=== PATIENT | female | born 1940 | race Caucasian/White ===

== ENCOUNTER 2018-05-09 13:38 | Emergency (ER) | payer OTHER, MEDICARE ==
[~2018-05-09] VITALS: Ht 170.2 cm; Wt 67.1 kg
[~2018-05-09 13:38] MED LIST: AMIO200T3 PO; ASPI-1155 PO; ESTR0.623 PO; FIORICET PO; LEVO100T PO; LORA-259 PO; NOR10 PO; VALS320T2 PO; VERA180T7 PO
[2018-05-09 13:47] VITALS: BP_SYST 156
[2018-05-09 14:59] LABS: BASOPHILS # (AUTO) 0.1 K/uL (0.0-0.2); BASOPHILS % (AUTO) 0.6 % (0.0-2.0); EOSINOPHILS # (AUTO) 0.1 K/uL (0.0-0.4); EOSINOPHILS % (AUTO) 0.8 % (0.0-4.0); HEMATOCRIT 37.9 % (36-48); HEMOGLOBIN 11.9 g/dL (12.0-16.0); LYMPHOCYTES # (AUTO) 1.3 K/uL (1.0-5.5); LYMPHOCYTES % (AUTO) 14.2 % (20.5-51.5); MEAN CORPUSCULAR HEMOGLOBIN 25 pg (27-31); MEAN CORPUSCULAR HGB CONC 31 % (32-36); MEAN CORPUSCULAR VOLUME 80 fL (79.0-98.0); MONOCYTES # (AUTO) 0.3 K/uL (0.0-1.0); MONOCYTES % (AUTO) 3.1 % (1.7-9.3); NEUTROPHILS # (AUTO) 7.3 K/uL (1.8-7.7); NEUTROPHILS % (AUTO) 81.3 % (40.0-70.0); PLATELET COUNT (AUTO) 369 K/uL (130-430); RED BLOOD CELL COUNT(AUTO) 4.74 MIL/uL (4.2-6.2); WHITE BLOOD COUNT (AUTO) 9.1 K/uL (4.8-10.8)
[2018-05-09 15:12] LABS: ANION GAP 10 (5-15); CALCIUM 9.2 mg/dL (8.4-11.0); CHLORIDE 89 mmol/L (98-107); CREATININE 0.72 mg/dL (0.55-1.30); GLUCOSE 104 mg/dL (70-99); POTASSIUM 4.6 mmol/L (3.5-5.1); SODIUM SERUM 124 mmol/L (136-145); UREA NITROGEN, BLOOD 11 mg/dL (8-21)
[2018-05-09 15:17] LABS: ALANINE AMINOTRANSFERASE 26 U/L (12-78); ALBUMIN 3.8 g/dL (3.4-4.8); ASPARTATE AMINOTRANSFERASE 15 U/L (10-37); TOTAL BILIRUBIN 0.2 mg/dL (0.0-1.0)
[2018-05-09 16:00] VITALS: BP_SYST 152
== END 2018-05-09 16:00 | disposition home or self-care (01) ==
LOC: SED 13:38
DX: R79.89 Other specified abnormal findings of blood chemistry (principal); E87.6 Hypokalemia; I10 Essential (primary) hypertension; K21.9 Gastro-esophageal reflux disease without esophagitis; I48.91 Unspecified atrial fibrillation; Z90.710 Acquired absence of both cervix and uterus; Z79.899 Other long term (current) drug therapy
CPT/HCPCS: 36415; 80053; 83735-TC; 85025; 93005; 99285

== ENCOUNTER 2018-12-31 19:32 | Outpatient (CLI) | payer OTHER, MEDICARE ==
[~2018-12-31 19:32] MED LIST changes: +AMI200 PO; -AMIO200T3 PO
[2018-12-31 20:21] LABS: ALANINE AMINOTRANSFERASE 25 U/L (12-78); ALBUMIN 3.6 g/dL (3.4-4.8); ANION GAP 11 (5-15); ASPARTATE AMINOTRANSFERASE 15 U/L (10-37); CALCIUM 9.3 mg/dL (8.4-11.0); GLUCOSE 120 mg/dL (70-99); POTASSIUM 4.8 mmol/L (3.5-5.1); SODIUM SERUM 120 mmol/L (136-145); TOTAL BILIRUBIN 0.2 mg/dL (0.0-1.0); UREA NITROGEN, BLOOD 15 mg/dL (8-21)
[2018-12-31 21:45] LABS: CHLORIDE 84 mmol/L (98-107)
== END 2018-12-31 20:42 | disposition home or self-care (01) ==
LOC: SLB 19:32
PROVIDERS: ATTEND Internal Medicine Cardiovascular Disease
DX: M15.0 Primary generalized (osteo)arthritis (principal); I48.0 Paroxysmal atrial fibrillation; M32.10 Systemic lupus erythematosus, organ or system involvement unspecified; E03.9 Hypothyroidism, unspecified; D50.8 Other iron deficiency anemias; E87.5 Hyperkalemia; I10 Essential (primary) hypertension; Z79.899 Other long term (current) drug therapy
CPT/HCPCS: 36415; 80053

== ENCOUNTER 2019-03-27 10:55 | Outpatient (CLI) | payer OTHER, MEDICARE ==
[2019-03-27 11:58] LABS: BASOPHILS # (AUTO) 0.1 K/uL (0.0-0.2); BASOPHILS % (AUTO) 1.3 % (0.0-2.0); EOSINOPHILS # (AUTO) 0.4 K/uL (0.0-0.4); EOSINOPHILS % (AUTO) 6.4 % (0.0-4.0); HEMATOCRIT 36.4 % (36-48); HEMOGLOBIN 11.9 g/dL (12.0-16.0); LYMPHOCYTES # (AUTO) 2.1 K/uL (1.0-5.5); MEAN CORPUSCULAR HEMOGLOBIN 26 pg (27-31); MEAN CORPUSCULAR HGB CONC 33 % (32-36); MEAN CORPUSCULAR VOLUME 81 fL (79.0-98.0); MONOCYTES # (AUTO) 0.5 K/uL (0.0-1.0); MONOCYTES % (AUTO) 7.9 % (1.7-9.3); NEUTROPHILS # (AUTO) 3.5 K/uL (1.8-7.7); NEUTROPHILS % (AUTO) 52.4 % (40.0-70.0); PLATELET COUNT (AUTO) 361 K/uL (130-430); RED BLOOD CELL COUNT(AUTO) 4.52 MIL/uL (4.2-6.2); RED CELL DISTRIBUTION WIDTH 16.3 % (9.0-15.0); WHITE BLOOD COUNT (AUTO) 6.7 K/uL (4.8-10.8)
[2019-03-27 12:39] LABS: ALANINE AMINOTRANSFERASE 20 U/L (12-78); ALBUMIN 3.3 g/dL (3.4-4.8); ANION GAP 5 (5-15); ASPARTATE AMINOTRANSFERASE 14 U/L (10-37); CALCIUM 8.9 mg/dL (8.4-11.0); CHLORIDE 94 mmol/L (98-107); CREATININE 0.74 mg/dL (0.55-1.30); GLUCOSE 90 mg/dL (70-99); POTASSIUM 4.9 mmol/L (3.5-5.1); SODIUM SERUM 129 mmol/L (136-145); THYROID STIMULATING HORMONE 3.85 uIu/mL (0.36-3.74); TOTAL BILIRUBIN 0.2 mg/dL (0.0-1.0); UREA NITROGEN, BLOOD 11 mg/dL (8-21)
[2019-03-27 13:47] LABS: CHOLESTEROL 238 mg/dL (<200); HDL CHOLESTEROL 111 mg/dL (>55); LDL CHOLESTEROL 104 mg/dL (<100); TRIGLYCERIDES 41 mg/dL (30-150)
== END 2019-03-27 14:48 | disposition home or self-care (01) ==
LOC: SLB 10:55
PROVIDERS: ATTEND Internal Medicine Cardiovascular Disease
DX: I11.0 Hypertensive heart disease with heart failure (principal); I50.9 Heart failure, unspecified; E78.5 Hyperlipidemia, unspecified
CPT/HCPCS: 36415; 80053; 80061; 83735-TC; 84443-TC; 85025

== ENCOUNTER 2020-04-08 10:20 | Outpatient (CLI) | payer OTHER, MEDICARE ==
[~2020-04-08 10:20] MED LIST changes: +VERA180T11 PO; -VERA180T7 PO
[2020-04-08 11:10] LABS: BASOPHILS # (AUTO) 0.1 K/uL (0.0-0.2); BASOPHILS % (AUTO) 1.1 % (0.0-2.0); EOSINOPHILS # (AUTO) 0.8 K/uL (0.0-0.4); EOSINOPHILS % (AUTO) 9.1 % (0.0-4.0); HEMATOCRIT 36.6 % (36-48); HEMOGLOBIN 12.1 g/dL (12.0-16.0); LYMPHOCYTES # (AUTO) 2.5 K/uL (1.0-5.5); LYMPHOCYTES % (AUTO) 28.3 % (20.5-51.5); MEAN CORPUSCULAR HEMOGLOBIN 26 pg (27-31); MEAN CORPUSCULAR HGB CONC 33 % (32-36); MEAN CORPUSCULAR VOLUME 79 fL (79.0-98.0); MONOCYTES # (AUTO) 0.6 K/uL (0.0-1.0); MONOCYTES % (AUTO) 7.3 % (1.7-9.3); NEUTROPHILS # (AUTO) 4.7 K/uL (1.8-7.7); NEUTROPHILS % (AUTO) 54.2 % (40.0-70.0); PLATELET COUNT (AUTO) 393 K/uL (130-430); RED BLOOD CELL COUNT(AUTO) 4.63 MIL/uL (4.2-6.2); RED CELL DISTRIBUTION WIDTH 15.4 % (9.0-15.0); WHITE BLOOD COUNT (AUTO) 8.8 K/uL (4.8-10.8)
[2020-04-08 11:41] LABS: ALANINE AMINOTRANSFERASE 27 U/L (12-78); ALBUMIN 3.4 g/dL (3.4-4.8); ANION GAP 3 (5-15); ASPARTATE AMINOTRANSFERASE 15 U/L (10-37); CHLORIDE 88 mmol/L (98-107); CHOLESTEROL 202 mg/dL (<200); CREATININE 0.93 mg/dL (0.55-1.30); GLUCOSE 98 mg/dL (70-99); HDL CHOLESTEROL 107 mg/dL (>55); LDL CHOLESTEROL 83 mg/dL (<100); POTASSIUM 4.9 mmol/L (3.5-5.1); SODIUM SERUM 122 mmol/L (136-145); THYROID STIMULATING HORMONE 3.52 uIu/mL (0.34-4.82); TOTAL BILIRUBIN 0.2 mg/dL (0.0-1.0); TRIGLYCERIDES 54 mg/dL (30-150); UREA NITROGEN, BLOOD 12 mg/dL (8-21)
[2020-04-09 08:12] LABS: T4 (THYROXINE) 10.5 ug/dL (4.5-12.0)
== END 2020-04-08 20:05 | disposition home or self-care (01) ==
LOC: SLB 10:20
PROVIDERS: ATTEND Internal Medicine Cardiovascular Disease
DX: I48.0 Paroxysmal atrial fibrillation (principal); I34.0 Nonrheumatic mitral (valve) insufficiency; I10 Essential (primary) hypertension; E78.5 Hyperlipidemia, unspecified
CPT/HCPCS: 36415; 80053; 80061; 84436; 84443-TC; 84480; 85025

== ENCOUNTER 2022-03-26 18:00 | Inpatient (IN) | payer OTHER, MEDICARE ==
[~2022-03-26] VITALS: Ht 167.6 cm; Wt 61.2 kg
[~2022-03-26 18:00] MED LIST changes: -AMI200 PO; +AMIO200T66 PO; -VERA180T11 PO; +VERA180T59 PO
[2022-03-26 18:18] VITALS: BP_SYST 110
--- NOTE | 2022-03-26 18:21 | NUR ---
Triaged pt and pt on ambulance gurney until bed becomes available. Pt stable.
--- NOTE | 2022-03-26 19:50 | NUR ---
SELMA BOWLES Kwaw at bedside
[2022-03-26 19:56] LABS: HEMATOCRIT 29.5 % (36-48); HEMOGLOBIN 9.1 g/dL (12.0-16.0); MEAN CORPUSCULAR HEMOGLOBIN 19 pg (27-31); MEAN CORPUSCULAR HGB CONC 31 % (32-36); MEAN CORPUSCULAR VOLUME 62 fL (79.0-98.0); PLATELET COUNT (AUTO) 498 K/uL (130-430); RED BLOOD CELL COUNT(AUTO) 4.73 MIL/uL (4.2-6.2); RED CELL DISTRIBUTION WIDTH 18.6 % (9.0-15.0); WHITE BLOOD COUNT (AUTO) 9.5 K/uL (4.8-10.8)
[2022-03-26 20:07] LABS: ANION GAP 8 (5-15); CALCIUM 9.4 mg/dL (8.4-11.0); CHLORIDE 89 mmol/L (98-107); CREATININE 0.73 mg/dL (0.55-1.30); GLUCOSE 104 mg/dL (70-99); POTASSIUM 4.8 mmol/L (3.5-5.1); SODIUM SERUM 122 mmol/L (136-145); UREA NITROGEN, BLOOD 15 mg/dL (8-21)
[2022-03-26 20:11] LABS: ALANINE AMINOTRANSFERASE 24 U/L (12-78); ALBUMIN 2.9 g/dL (3.4-4.8); ASPARTATE AMINOTRANSFERASE 17 U/L (10-37); TOTAL BILIRUBIN 0.2 mg/dL (0.0-1.0)
[2022-03-26 21:18] LABS: BAND % (MANUAL) 0 % (0-6); BASOPHILS % (MANUAL) 0 % (0-2); EOSINOPHILS % (MANUAL) 3 % (0-7); LYMPHOCYTES % (MANUAL) 13 % (20-46); MONOCYTES % (MANUAL) 5 % (0-11)
--- NOTE | 2022-03-26 21:20 | NUR ---
Patient to ER bed h3 to gown for evaluation. Side rails up. Report given to Guerita HAYES.
[2022-03-26] MEDS ORDERED: DOCUSATE SODIUM 100 MG CAPSULE PO PRN (22:00)
[2022-03-26] MEDS ORDERED: MORPHINE 2 MG/ML INJ. SYRINGE IVP PRN ×2 (22:00)
[2022-03-26] MEDS ORDERED: ONDANSETRON HCL 4 MG/2 ML VIAL IVP PRN (22:00)
[2022-03-26] MEDS ORDERED: BISACODYL 10 MG/SUPPOSITORY RC ONE (22:00)
[2022-03-26] MEDS ORDERED: MUPIROCIN 2% TOPICAL OINTMENT 22 GM NS PRN (22:00)
[2022-03-26] MEDS ORDERED: ACETAMINOPHEN 325 MG TABLET PO PRN (22:00)
[2022-03-26] MEDS ORDERED: NACL 0.9% 1,000 ML IV ONE (22:00)
[2022-03-26] MEDS ORDERED: POTASSIUM CHLORIDE 20 MEQ TAB.PRT.SR PO PRN (22:00)
[2022-03-26] MEDS ORDERED: MAGNESIUM SULFATE 50 ML IV PRN (22:00)
--- NOTE | 2022-03-26 22:50 | NUR ---
Lab at bedside
--- NOTE | 2022-03-26 22:50 | NUR ---
Patient is a fall risk and is attemping to get out of bed at this time. Sitter is requested and none is available at this time; charge nurse notified.
[2022-03-26] MEDS ORDERED: LORazepam 2 MG/ML VIAL IVP ONE (23:45)
--- NOTE | 2022-03-26 23:50 | NUR ---
COVID SWAB SENT TO LAB.
--- NOTE | 2022-03-26 23:55 | NUR ---
Patient placed on bilat wrist soft restraints; see flow sheet and medical non-violent restraints physician order paperwork
--- NOTE | 2022-03-26 23:58 | NUR ---
# 20 gauge angiocath placed to LEFT FOREARM. Use of asceptic technique. Opsite placed over site. Blood return noted. Flushed with 10 cc of normal saline. No evidence of infiltration noted. IV site secured with coban. Patient tolerated well.
--- NOTE | 2022-03-27 01:17 | NUR ---
Admit bed requested Patient will be admitted to care of . Admitted to med surg unit. Diagnosis hyponatremia Inpatient (Yes or No) yes Observation (Yes or No) NO Orientation concerns or request close to nursing station (Yes or No) YES Covid Status N On vent or bipap N Isolation requirements N Needs a sitter N From Home (Yes or if No enter name of facility) YES Requires Dialysis (Yes or No) NO Med Rec Completed (Yes of No) Y
--- NOTE | 2022-03-27 01:45 | NUR ---
Patient's significant other at bedside at this time; requesting for bilateral soft wrist restraints to be taken off. Patient's significant other is at bedside and states he will be sitter for patient.
[2022-03-27] MEDS ORDERED: cefTRIAXone 1 GM IVPB PREMIX 50 ML IV ONE (03:00)
--- NOTE | 2022-03-27 03:00 | NUR ---
ER MD Cabrera at bedside speaking with patient and patient's significant other () regarding patient request to leave AMA.
--- NOTE | 2022-03-27 03:40 | NUR ---
Patient does not wish to proceed with medical care recommended by Dr Cabrera. Patient given information related to possible complications, up to and including , which could occur as a result of leaving hospital at this time. Patient verbalizes understanding of risks involved leaving against medical advice. Patient has signed AMA form. Patient accompanied by significant other ().
[2022-03-27] MEDS ORDERED: CEPH250C PO (03:46)
[2022-03-27 04:04] VITALS: BP_SYST 157
[2022-03-27] MEDS ORDERED: LEVOTHYROXINE SODIUM 0.1 MG TABLET PO SCH (07:00)
[2022-03-27] MEDS ORDERED: AMIODARONE HCL 200 MG TABLET PO SCH (09:00)
[2022-03-27] MEDS ORDERED: amLODIPine BESYLATE 10 MG TABLET PO SCH (09:00)
[2022-03-27] MEDS ORDERED: ASPIRIN 81 MG TAB.CHEW PO SCH (09:00)
== END 2022-03-27 03:40 | disposition left against medical advice (07) | DRG 641 ==
LOC: SED 18:00 → SMU 21:49
PROVIDERS: ADMIT Family Medicine; ATTEND Family Medicine
DX: E87.1 Hypo-osmolality and hyponatremia (principal); K59.00 Constipation, unspecified; I10 Essential (primary) hypertension; K21.9 Gastro-esophageal reflux disease without esophagitis; Z20.822 Contact with and (suspected) exposure to COVID-19; Z53.29 Procedure and treatment not carried out because of patient's decision for other reasons; E78.5 Hyperlipidemia, unspecified; Z88.0 Allergy status to penicillin; Z88.2 Allergy status to sulfonamides; Z79.899 Other long term (current) drug therapy
CPT/HCPCS: 36415; 70450-TC; 72125-TC; 72192-TC; 76376; 80053; 83605; 85007; 85027; 87040; 96365; 96375; 99285; J0696; J2060

== ENCOUNTER 2022-08-23 12:40 | Inpatient (IN) | payer OTHER, MEDICARE ==
[~2022-08-23] VITALS: Ht 167.6 cm; Wt 58.3 kg
[2022-08-23 12:40] VITALS: BP_SYST 128
[~2022-08-23 12:40] MED LIST changes: +CEPH250C PO
--- NOTE | 2022-08-23 12:45 | NUR ---
Placed in room 01 . Placed on school bus monitor, blood pressure machine and pulse oximeter. To gown for exam. Side rails up. Report given to ABIGAIL CRONIN.
--- NOTE | 2022-08-23 13:00 | NUR ---
RECEIVED PT FROM LOLITA HAYES. PT HAD WITNESSED SEIZURE 30 SECONDS TO ONE MINUTE WITH NO KNOWN INJURY. PT IS AAOX1 TO SELF. PUPILS PERRL. NORMAL S1S2 NOTED. ON R/A. SKIN WARM, DRY, INTACT, NO EDEMA. IV CATH IN PLACE TO LAC 20G, FLUSHED, PATENT. SEIZURE PRECAUTIONS IN PLACE.
--- NOTE | 2022-08-23 13:11 | NUR ---
EKG OBTAINED. PT TAKEN FOR CT SCAN AT THIS TIME.
--- NOTE | 2022-08-23 13:12 | NUR ---
DR. BATES AT BEDSIDE TO ASSESS PT.
--- NOTE | 2022-08-23 13:16 | NUR ---
PT BACK FROM CT SCAN AND PLACED ON MONITOR, LABS OBTAINED.
[2022-08-23] MEDS ORDERED: MEGE20TA3 PO (13:26)
[2022-08-23] MEDS ORDERED: BUSP10TA3 PO (13:26)
[2022-08-23] MEDS ORDERED: HYDR-3927 PO (13:26)
[2022-08-23] MEDS ORDERED: PRED10TA PO (13:26)
[2022-08-23 13:30] LABS: HEMATOCRIT 23.6 % (36-48); MEAN CORPUSCULAR HEMOGLOBIN 17 pg (27-31); MEAN CORPUSCULAR HGB CONC 30 % (32-36); MEAN CORPUSCULAR VOLUME 57 fL (79.0-98.0); PLATELET COUNT (AUTO) 640 K/uL (130-430); RED BLOOD CELL COUNT(AUTO) 4.17 MIL/uL (4.2-6.2); RED CELL DISTRIBUTION WIDTH 20.5 % (9.0-15.0); WHITE BLOOD COUNT (AUTO) 24.5 K/uL (4.8-10.8)
[2022-08-23 13:51] LABS: ANION GAP 13 (5-15); CALCIUM 9.7 mg/dL (8.4-11.0); CHLORIDE 92 mmol/L (98-107); CREATININE 0.93 mg/dL (0.55-1.30); GLUCOSE 194 mg/dL (70-99); UREA NITROGEN, BLOOD 19 mg/dL (8-21)
[2022-08-23 13:55] LABS: ALANINE AMINOTRANSFERASE 26 U/L (12-78); ASPARTATE AMINOTRANSFERASE 17 U/L (10-37); TOTAL BILIRUBIN 0.4 mg/dL (0.0-1.0)
[2022-08-23 14:10] LABS: BASOPHILS % (AUTO) 0.3 % (0.0-2.0); EOSINOPHILS % (AUTO) 0.2 % (0.0-4.0); LYMPHOCYTES % (AUTO) 1.8 % (20.5-51.5); MONOCYTES % (AUTO) 5.3 % (1.7-9.3); NEUTROPHILS % (AUTO) 92.4 % (40.0-70.0)
[2022-08-23 14:11] LABS: LYMPHOCYTES # (AUTO) 0.4 K/uL (1.0-5.5); MONOCYTES # (AUTO) 1.3 K/uL (0.0-1.0); NEUTROPHILS # (AUTO) 22.6 K/uL (1.8-7.7)
[2022-08-23 14:12] LABS: BAND % (MANUAL) 7 % (0-6); BASOPHILS # (AUTO) 0.1 K/uL (0.0-0.2); BASOPHILS % (MANUAL) 1 % (0-2); EOSINOPHILS % (MANUAL) 6 % (0-7); LYMPHOCYTES % (MANUAL) 13 % (20-46)
[2022-08-23] MEDS ORDERED: PIPERACILLIN/TAZO 4.5GM/DEX-IS 100 ML IV SCH (14:30)
[2022-08-23] MEDS ORDERED: VANCOMYCIN HCL 1,250 MG in NS 250 ML IV ONE (14:45)
[2022-08-23] MEDS ORDERED: PIPERACILLIN/TAZO 4.5GM/DEX-IS 100 ML IV ONE (15:00)
[2022-08-23] MEDS ORDERED: VANCOMYCIN HCL 1000 MG/VIAL IV ONE (15:12)
[2022-08-23] MEDS ORDERED: PIPERACILLIN/TAZOBACTAM 4.5 GM/VIAL (ZOSYN) IV ONE (15:13)
[2022-08-23] MEDS ORDERED: NACL 0.9% 2,000 ML IV ONE (15:15)
--- NOTE | 2022-08-23 15:18 | NUR ---
COVID, MRSA, URINE SAMPLES OBTAINED AND TAKEN TO LAB.
[2022-08-23 15:41] LABS: BILIRUBIN,URINE NEGATIVE (NEGATIVE); BLOOD, URINE NEGATIVE (NEGATIVE); CLARITY/URINE SL CLOUDY (CLEAR); COLOR,URINE YELLOW (YELLOW); GLUCOSE,URINE NEGATIVE (NEGATIVE); KETONES,URINE NEGATIVE (NEGATIVE); LEUKOCYTE ESTERASE ,URINE NEGATIVE (NEGATIVE); NITRITE, URINE NEGATIVE (NEGATIVE); PH,URINE 5.5 (5.0-8.0); PROTEIN URINE NEGATIVE (NEGATIVE); UROBILINOGEN,URINE 0.2 (0.2-1.0)
[2022-08-23] MEDS ORDERED: MORPHINE 2 MG/ML INJ. SYRINGE IVP PRN ×2 (15:45)
[2022-08-23] MEDS ORDERED: MUPIROCIN 2% TOPICAL OINTMENT 22 GM NS PRN (15:45)
[2022-08-23] MEDS: NACL 0.9% 1,000 ML IV SCH ×2 (15:45→21:54)
[2022-08-23] MEDS ORDERED: ZOLPIDEM TARTRATE 5 MG TABLET PO PRN (15:45)
[2022-08-23] MEDS ORDERED: INSULIN LISPRO SLIDING SCALE 100 UNITS/ML, 3 ML VIAL (humaLOG) SUBCUT PRN (15:45)
[2022-08-23] MEDS ORDERED: MAGNESIUM SULFATE 50 ML IV PRN (15:45)
[2022-08-23] MEDS ORDERED: ONDANSETRON HCL 4 MG/2 ML VIAL IVP PRN (15:45)
[2022-08-23] MEDS ORDERED: NALOXONE HCL 0.4 MG/ML AMP (NARCAN) IVP PRN ×2 (15:45)
--- NOTE | 2022-08-23 17:29 | NUR ---
Admit bed requested Patient will be admitted to care of . Admitted to TELEMETRY unit. Diagnosis NEW ONSET SEIZURE Inpatient (Yes or No) Y Observation (Yes or No) N Orientation concerns or request close to nursing station (Yes or No) Y Covid Status NEG On vent or bipap N Isolation requirements N Needs a sitter N From Home (Yes or if No enter name of facility) Y Requires Dialysis (Yes or No) N Med Rec Completed (Yes of No) Y
[2022-08-23 18:01] LABS: TOTAL IRON BIND. CAPACITY 436 ug/dL (250-450)
[2022-08-23 18:45] VITALS: BP_SYST 134
--- NOTE | 2022-08-23 18:45 | NUR ---
Patient will be admitted to care of ABIGAIL LOW. Admitted to TELEMETRY unit. Will go to room 113B. Belongings list completed. Complete and up to date summary report printed. SBAR report to be given at bedside with opportunity for questions.
--- NOTE | 2022-08-23 19:10 | NUR ---
Patient resting quietly in bed with and son at bedside. Patient stable since transfer to unit.
[2022-08-23 20:15] VITALS: BP_SYST 138
[2022-08-23] MEDS: HEPARIN SODIUM,PORCINE 5,000 UNITS/ML VIAL SUBCUT SCH (21:52)
[2022-08-24 00:18] VITALS: BP_SYST 121
[2022-08-24 08:42] LABS: MEAN CORPUSCULAR HEMOGLOBIN 17 pg (27-31); MEAN CORPUSCULAR HGB CONC 31 % (32-36); MEAN CORPUSCULAR VOLUME 55 fL (79.0-98.0); PLATELET COUNT (AUTO) 574 K/uL (130-430); RED BLOOD CELL COUNT(AUTO) 4.06 MIL/uL (4.2-6.2); RED CELL DISTRIBUTION WIDTH 20.2 % (9.0-15.0)
--- NOTE | 2022-08-24 08:45 | NUR ---
Received call from Audelia (lab) regarding abnormal labs: WBC 31.5, Hgb 6.8, and Hct 22.2. Dr. Potter at nurses' station; notified.
[2022-08-24 08:47] LABS: HEMATOCRIT 22.2 % (36-48); HEMOGLOBIN 6.8 g/dL (12.0-16.0)
[2022-08-24] MEDS ORDERED: HEPARIN SODIUM,PORCINE 5,000 UNITS/ML VIAL ONE (08:47)
[2022-08-24] MEDS: LORazepam 2 MG/ML VIAL IVP PRN (08:58)
[2022-08-24] MEDS ORDERED: LEVOTHYROXINE SODIUM 0.1 MG TABLET PO ONE (09:00)
[2022-08-24] MEDS ORDERED: LORATADINE 10 MG TABLET PO ONE (09:00)
[2022-08-24] MEDS ORDERED: ACETAMINOPHEN 325 MG TABLET PO ONE (09:00)
--- NOTE | 2022-08-24 09:00 | NUR ---
CONSULTATION PAGED REASON FOR CONSULTATION: HYPONATREMIA WAS CONSULT CALLED? Y PERSON WHO WAS NOTIFIED: REJI CONSULTING PHYSICIAN: DEAN PETTIT DATA SERVICES DEVELOPER SPECIALTY: NEPH[employer] DATA SERVICES DEVELOPER PHONE NUMBER: [phone] REQUESTING PHYSICIAN: [facility]
[2022-08-24 09:02] LABS: BASOPHILS % (MANUAL) 0 % (0-2); EOSINOPHILS % (MANUAL) 0 % (0-7); LYMPHOCYTES % (MANUAL) 4 % (20-46); MONOCYTES % (MANUAL) 2 % (0-11)
[2022-08-24] MEDS: HEPARIN SODIUM,PORCINE 5,000 UNITS/ML VIAL SUBCUT SCH ×2 (09:02→21:00)
--- NOTE | 2022-08-24 09:02 | NUR ---
Scheduled subq medication given per order. Patient medicated for anxiety as well.
--- NOTE | 2022-08-24 09:10 | NUR ---
Patient resting comfortably in bed with no distress noted. pancho Bacon at bedside for EEG study.
[2022-08-24 09:29] VITALS: BP_SYST 121
[2022-08-24 09:36] LABS: CALCIUM 9.2 mg/dL (8.4-11.0); CREATININE 0.44 mg/dL (0.55-1.30); GLUCOSE 119 mg/dL (70-99); UREA NITROGEN, BLOOD 10 mg/dL (8-21)
[2022-08-24 10:22] LABS: ANION GAP 11 (5-15); CHLORIDE 97 mmol/L (98-107)
[2022-08-24] MEDS: ASPIRIN 81 MG TAB.CHEW PO SCH (10:40)
[2022-08-24] MEDS: amLODIPine BESYLATE 10 MG TABLET PO SCH (10:41)
[2022-08-24] MEDS: AMIODARONE HCL 200 MG TABLET PO SCH (10:41)
[2022-08-24] MEDS: busPIRone HCL 5 MG TABLET PO SCH (10:41)
--- NOTE | 2022-08-24 10:41 | NUR ---
Scheduled medications given per order. Patient stable at this time.
[2022-08-24 12:00] VITALS: BP_SYST 135
--- NOTE | 2022-08-24 13:30 | NUR ---
Patient stable; resting comfortably in bed with and son at bedside.
--- NOTE | 2022-08-24 13:50 | NUR ---
Patient changed and pulled up in bed. Stable at this time. Will call and son back to room.
[2022-08-24] MEDS ORDERED: VANCOMYCIN HCL 750 MG in NS 250 ML IV SCH (15:00)
[2022-08-24 16:00] VITALS: BP_SYST 125
--- NOTE | 2022-08-24 16:00 | NUR ---
>>>PT NOTES<<< HOLD PT EVAL PER RN DUE TO LOW H&H, AWAITING BLOOD TRANSFUSION.
--- NOTE | 2022-08-24 16:30 | NUR ---
Started transfusion of PRBCs. Patient stable with (Ant) and son (Golden) at bedside.
[2022-08-24] MEDS: SOD FERRIC GLUC COMPLEX/SUC 125 MG in NS 100 ML IV SCH (19:34)
[2022-08-24 20:30] VITALS: BP_SYST 121
[2022-08-24] MEDS: NACL 0.9% 1,000 ML IV SCH (21:45)
[2022-08-25 00:30] VITALS: BP_SYST 127
[2022-08-25] MEDS: LEVOTHYROXINE SODIUM 0.1 MG TABLET PO SCH (06:10)
--- NOTE | 2022-08-25 07:31 | NUR ---
OPENING NOTES: RECEIVED BEDSIDE SBAR FROM PM SHIFT NURSE, PATIENT IS STABLE NO S/S OF ANY DISTRESS, RESTING IN BED WITH EYES CLOSED, BED AT LOCKED AND LOW POSITION CALL LIGHT IN REACH, SAFETY CHECKS DONE AND WILL DO THOUGHT THE DAY.
[2022-08-25] MEDS: busPIRone HCL 5 MG TABLET PO SCH (09:09)
[2022-08-25] MEDS: AMIODARONE HCL 200 MG TABLET PO SCH (09:20)
[2022-08-25] MEDS: amLODIPine BESYLATE 10 MG TABLET PO SCH (09:21)
[2022-08-25] MEDS: ASPIRIN 81 MG TAB.CHEW PO SCH (09:21)
[2022-08-25] MEDS: HEPARIN SODIUM,PORCINE 5,000 UNITS/ML VIAL SUBCUT SCH ×2 (09:26→21:00)
[2022-08-25 10:04] LABS: HEMATOCRIT 25.5 % (36-48); HEMOGLOBIN 7.8 g/dL (12.0-16.0); MEAN CORPUSCULAR HEMOGLOBIN 19 pg (27-31); MEAN CORPUSCULAR HGB CONC 31 % (32-36); MEAN CORPUSCULAR VOLUME 61 fL (79.0-98.0); PLATELET COUNT (AUTO) 538 K/uL (130-430); RED CELL DISTRIBUTION WIDTH 24.4 % (9.0-15.0); WHITE BLOOD COUNT (AUTO) 21.9 K/uL (4.8-10.8)
[2022-08-25 10:06] LABS: ANION GAP 8 (5-15); CALCIUM 8.8 mg/dL (8.4-11.0); CHLORIDE 100 mmol/L (98-107); CREATININE 0.43 mg/dL (0.55-1.30); GLUCOSE 114 mg/dL (70-99); UREA NITROGEN, BLOOD 11 mg/dL (8-21)
[2022-08-25] MEDS: SOD FERRIC GLUC COMPLEX/SUC 125 MG in NS 100 ML IV SCH (10:22)
--- NOTE | 2022-08-25 11:08 | NUR ---
LAB CALLED K-2.[address] CHAVEZ
[2022-08-25 11:50] VITALS: BP_SYST 116
[2022-08-25 12:06] LABS: FOLATE (FOLIC ACID) 9.4 ng/mL (>3.0)
[2022-08-25] MEDS ORDERED: POTASSIUM CHLORIDE 20 MEQ/PKT PACKET PO ONE (12:30)
--- NOTE | 2022-08-25 12:59 | NUR ---
Dietitian Recommendations * When medically appropriate, please advance to Regular, mechanical soft diet. Liberalize to increase PO intake * Rec Ensure BID * Please update diet order to reflect current diet LISA, MPH, COOPER Addendum: 08/25/22 at [address] Amended: Links added. Addendum: 08/26/22 at [address] COOPER spoke w/ pt's primary RN this morning and inquired whether pt's currently active Clear Liquid diet is still appropriate for pt versus upgrade in food-texture modification to Mechanical Soft diet. She stated pt is OK to receive solids by lunch today. COOPER modified pt's diet to Mechanical Soft, Ensure BID as per previous RD rec from Nutrition Assessment completed 08/25. Please refer to note for details.
[2022-08-25] MEDS ORDERED: POTASSIUM CHLORIDE 40 MEQ, LIDOCAINE JECT 2% PF 100 MG 50 MG in NS 250 ML IV ONE (13:15)
[2022-08-25 14:55] LABS: ATYPICAL LYMPHOCYTES % 0 % (0-0); BAND % (MANUAL) 0 % (0-6); BASOPHILS % (MANUAL) 0 % (0-2); EOSINOPHILS % (MANUAL) 0 % (0-7); LYMPHOCYTES % (MANUAL) 12 % (20-46); MONOCYTES % (MANUAL) 6 % (0-11)
[2022-08-25 15:20] VITALS: BP_SYST 123
[2022-08-25] MEDS: NACL 0.9% 1,000 ML IV SCH ×2 (17:32→21:22)
--- NOTE | 2022-08-25 18:25 | NUR ---
CLOSING NOTES: PATIENT REMAIN STABLE THOUGHT THE DAY ALL SAFETY CHECK DONE THOUGHT THE DAY, NO S/S OF ANY DISTRESS AT THIS TIME, BED AT LOW AND LOCKED POSITION, IV INTACT, RESTING IN BED WATCHING TV, FAMILY AT BEDSIDE FOR MOST OF THE DAY TOLERATED ALL MEDS TODAY, WILL GIVE PM SHIFT NURSE BEDSIDE SBAR.
[2022-08-25 20:35] VITALS: BP_SYST 116
[2022-08-25] MEDS: metroNIDAZOLE 500 mg/NS 100 ML IV SCH (21:18)
[2022-08-26] VITALS: BP_SYST 139
[2022-08-26] MEDS: LORazepam 2 MG/ML VIAL IVP PRN (00:40)
[2022-08-26] MEDS: LEVOTHYROXINE SODIUM 0.1 MG TABLET PO SCH (06:22)
[2022-08-26 08:00] VITALS: BP_SYST 125
[2022-08-26 08:14] LABS: HEMATOCRIT 26.7 % (36-48); MEAN CORPUSCULAR HEMOGLOBIN 19 pg (27-31); MEAN CORPUSCULAR HGB CONC 30 % (32-36); MEAN CORPUSCULAR VOLUME 62 fL (79.0-98.0); PLATELET COUNT (AUTO) 483 K/uL (130-430); RED BLOOD CELL COUNT(AUTO) 4.28 MIL/uL (4.2-6.2); RED CELL DISTRIBUTION WIDTH 25.1 % (9.0-15.0)
[2022-08-26 08:48] LABS: WHITE BLOOD COUNT (AUTO) 19.1 K/uL (4.8-10.8)
[2022-08-26] MEDS: amLODIPine BESYLATE 10 MG TABLET PO SCH (08:59)
[2022-08-26] MEDS: ASPIRIN 81 MG TAB.CHEW PO SCH (08:59)
[2022-08-26] MEDS: busPIRone HCL 5 MG TABLET PO SCH (09:00)
[2022-08-26] MEDS: HEPARIN SODIUM,PORCINE 5,000 UNITS/ML VIAL SUBCUT SCH ×2 (09:00→21:00)
[2022-08-26] MEDS: AMIODARONE HCL 200 MG TABLET PO SCH (09:00)
[2022-08-26] MEDS: metroNIDAZOLE 500 mg/NS 100 ML IV SCH ×2 (09:09→21:07)
--- NOTE | 2022-08-26 09:18 | NUR ---
Nutrition Note RD spoke w/ pt's primary RN this morning and inquired whether pt's currently active Clear Liquid diet is still appropriate for pt versus upgrade in food-texture modification to Mechanical Soft diet. She stated pt is OK to receive solids by lunch today. RD modified pt's diet to Mechanical Soft, Ensure BID as per previous RD rec from Nutrition Assessment completed 08/25. Please refer to note for details.
[2022-08-26 11:06] LABS: ANION GAP 9 (5-15); CALCIUM 8.8 mg/dL (8.4-11.0); CHLORIDE 103 mmol/L (98-107); CREATININE 0.45 mg/dL (0.55-1.30); GLUCOSE 105 mg/dL (70-99); UREA NITROGEN, BLOOD 9 mg/dL (8-21)
[2022-08-26 15:06] LABS: ATYPICAL LYMPHOCYTES % 0 % (0-0); BAND % (MANUAL) 0 % (0-6); BASOPHILS % (MANUAL) 0 % (0-2); EOSINOPHILS % (MANUAL) 0 % (0-7); LYMPHOCYTES % (MANUAL) 35 % (20-46); MONOCYTES % (MANUAL) 5 % (0-11)
--- NOTE | 2022-08-26 16:27 | NUR ---
IV PLACEMENT: old iv infiltrated as per primary nurse. #22 gauge angiocath placed to left ac. Use of asceptic technique. Opsite placed over site. Blood return noted. Flushed with 10 cc of normal saline. No evidence of infiltration noted. Patient tolerated well.son at bed side .
--- NOTE | 2022-08-26 16:27 | NUR ---
NEW IV INSERTED LEFT FORARM. RIGHT ARM IV DISCONTINUED DUE TO INFILTERATION.
[2022-08-26] MEDS: NACL 0.9% 1,000 ML IV SCH (16:28)
[2022-08-26 17:30] VITALS: BP_SYST 120
[2022-08-26 20:20] VITALS: BP_SYST 111
[2022-08-26] MEDS: POTASSIUM CHLORIDE 20 MEQ TAB.PRT.SR PO PRN (21:06)
[2022-08-26] MEDS: ACETAMINOPHEN 325 MG TABLET PO PRN (21:06)
[2022-08-27] VITALS (7 sets, daily range): BP systolic 107–129
--- NOTE | 2022-08-27 00:45 | NUR ---
GROUP CONTROLLER TO REPORT PT O2 SATURATION 81%- THIS RN TO ACCESS AND NOTE PATIENT TO BE SLIGHTLY ANXIOUS AND SOB.PT PLACED ON O2 AT 2L VIA NC AT THIS TIME- SATURATION 93% WITH OXYGEN. NOTE eMAR AND FLOWSHEETS THIS SHIFT-WILL MONITOR.
[2022-08-27] MEDS ORDERED: ALBUTEROL SULFATE 0.083% 2.5 MG/3 ML VIAL.NEB INH ONE (04:38)
[2022-08-27] MEDS ORDERED: IPRATROPIUM BROM 0.5 MG/2.5 ML VIAL.NEB (ATROVENT) INH ONE (04:38)
[2022-08-27] MEDS: IPRATROPIUM/ALBUTEROL SULFATE 3 ML AMPUL.NEB (DUONEB) INH PRN (04:40)
--- NOTE | 2022-08-27 04:40 | NUR ---
RN AT BEDSIDE TO ACCESS PT'S BREATHING AND O2 SATURATION. WHEEZING AND LOW SATURATION AT 88% ON 2L VIA NC PRESENT- RT CALLED TO ADMINISTER PRN NEBS MD ORDERED. NOTE eMAR/FLOWSHEETS AND RT ASSESSMENT.
[2022-08-27] MEDS: NACL 0.9% 1,000 ML IV SCH ×2 (06:32→21:24)
[2022-08-27] MEDS: LEVOTHYROXINE SODIUM 0.1 MG TABLET PO SCH (06:43)
[2022-08-27 07:02] LABS: BASOPHILS # (AUTO) 0.2 K/uL (0.0-0.2); BASOPHILS % (AUTO) 1.1 % (0.0-2.0); EOSINOPHILS # (AUTO) 0.1 K/uL (0.0-0.4); EOSINOPHILS % (AUTO) 0.3 % (0.0-4.0); HEMOGLOBIN 8.4 g/dL (12.0-16.0); LYMPHOCYTES % (AUTO) 26.3 % (20.5-51.5); MEAN CORPUSCULAR HEMOGLOBIN 19 pg (27-31); MEAN CORPUSCULAR HGB CONC 31 % (32-36); MEAN CORPUSCULAR VOLUME 61 fL (79.0-98.0); MONOCYTES # (AUTO) 1.2 K/uL (0.0-1.0); MONOCYTES % (AUTO) 5.4 % (1.7-9.3); NEUTROPHILS # (AUTO) 15.3 K/uL (1.8-7.7); NEUTROPHILS % (AUTO) 66.9 % (40.0-70.0); PLATELET COUNT (AUTO) 488 K/uL (130-430); RED BLOOD CELL COUNT(AUTO) 4.44 MIL/uL (4.2-6.2); RED CELL DISTRIBUTION WIDTH 25.9 % (9.0-15.0); WHITE BLOOD COUNT (AUTO) 22.9 K/uL (4.8-10.8)
[2022-08-27 07:34] LABS: ANION GAP 11 (5-15); CALCIUM 8.8 mg/dL (8.4-11.0); CHLORIDE 101 mmol/L (98-107); GLUCOSE 120 mg/dL (70-99); UREA NITROGEN, BLOOD 10 mg/dL (8-21)
--- NOTE | 2022-08-27 08:23 | NUR ---
OPENING NOTES: PT IN BED A/O X4 EATING BREAKFAST. FAMILY AT BEDSIDE. NO S/S OF DISTRESS OR PAIN REPORTED. BREATHING IS EVEN AND UNLABORED ON RA. ALL NEEDS MAT AT THIS TIME, SAFETY CHECKS MADE AND CALL LIGHT WITHIN REACH. Addendum: 08/27/22 at 0825 by Vicki Bhatt LVN WRONG PT.
--- NOTE | 2022-08-27 08:25 | NUR ---
OPENING NOTE: PT IN BED A/O X3 WATCHING TV. NO S/S OF DISTRESS OR PAIN REPORTED. BREATHING IS EVEN AND UNLABORED ON 3L NC. ALL NEEDS MET AT THIS TIME, SAFETY CHECKS MADE AND CALL LIGHT WITHIN REACH.
[2022-08-27] MEDS: ASPIRIN 81 MG TAB.CHEW PO SCH (09:57)
[2022-08-27] MEDS: busPIRone HCL 5 MG TABLET PO SCH ×2 (09:58→21:25)
[2022-08-27] MEDS: amLODIPine BESYLATE 10 MG TABLET PO SCH (09:58)
[2022-08-27] MEDS: AMIODARONE HCL 200 MG TABLET PO SCH (09:59)
[2022-08-27] MEDS: metroNIDAZOLE 500 mg/NS 100 ML IV SCH ×2 (10:19→21:25)
[2022-08-27] MEDS: HEPARIN SODIUM,PORCINE 5,000 UNITS/ML VIAL SUBCUT SCH ×2 (10:24→21:43)
[2022-08-27] MEDS ORDERED: FERROUS SULFATE 325 MG TABLET.DR PO ONE (10:30)
[2022-08-27 12:03] LABS: THYROID STIMULATING HORMONE 0.62 uIu/mL (0.34-4.82)
[2022-08-27] MEDS: LORazepam 1 MG TABLET PO PRN (12:06)
[2022-08-27] MEDS: FLUCONAZOLE 100 mg/ NS 50 ML IV SCH (13:49)
--- NOTE | 2022-08-27 15:00 | NUR ---
ROUNDS: PT IN A/O X4. FAMILY AT BEDSIDE. NO S/S OF DISTRESS OR PAIN REPORTED. PT NEEDED ASSISTANCE TO BEDSIDE COMMODE. ALL NEEDS MET AT THIS TIME, SAFETY CHECKS MADE, CALL LIGHT WITHIN REACH.
--- NOTE | 2022-08-27 19:42 | NUR ---
PHYSICAL THERAPY CO-SIGN The Physical Therapy Progress Notes documented by Corporate [employer] have been reviewed. Reviewed/Co-Signed by: Yaya Jarquin Documentation Done by:LA NENA HILL Addendum: 08/27/22 at 1942 by Yaya Jarquin PT Amended: Links added.
--- NOTE | 2022-08-27 19:57 | NUR ---
CLOSING NOTES: PT IN A/O X4. FAMILY AT BEDSIDE. NO S/S OF DISTRESS OR PAIN REPORTED. BREATHING IS EVEN AND UNLABORED ON NC 5L. ALL NEEDS MET AT THIS TIME, SAFETY CHECKS MADE, CALL LIGHT WITHIN REACH.
[2022-08-27] MEDS: FERROUS SULFATE 325 MG TABLET.DR PO SCH (21:25)
[2022-08-27] MEDS: POTASSIUM CHLORIDE 20 MEQ TAB.PRT.SR PO PRN (21:26)
[2022-08-28] VITALS (8 sets, daily range): BP systolic 99–130
[2022-08-28] MEDS: LORazepam 1 MG TABLET PO PRN ×2 (01:39→13:16)
[2022-08-28 06:47] LABS: BASOPHILS # (AUTO) 0.1 K/uL (0.0-0.2); BASOPHILS % (AUTO) 0.8 % (0.0-2.0); HEMATOCRIT 26.9 % (36-48); HEMOGLOBIN 8.3 g/dL (12.0-16.0); LYMPHOCYTES # (AUTO) 0.7 K/uL (1.0-5.5); LYMPHOCYTES % (AUTO) 3.9 % (20.5-51.5); MEAN CORPUSCULAR HEMOGLOBIN 20 pg (27-31); MEAN CORPUSCULAR HGB CONC 31 % (32-36); MEAN CORPUSCULAR VOLUME 64 fL (79.0-98.0); MONOCYTES # (AUTO) 3.3 K/uL (0.0-1.0); MONOCYTES % (AUTO) 18.2 % (1.7-9.3); NEUTROPHILS # (AUTO) 14.2 K/uL (1.8-7.7); NEUTROPHILS % (AUTO) 77.1 % (40.0-70.0); PLATELET COUNT (AUTO) 444 K/uL (130-430); RED BLOOD CELL COUNT(AUTO) 4.22 MIL/uL (4.2-6.2); RED CELL DISTRIBUTION WIDTH 25.6 % (9.0-15.0); WHITE BLOOD COUNT (AUTO) 18.4 K/uL (4.8-10.8)
[2022-08-28] MEDS: LEVOTHYROXINE SODIUM 0.1 MG TABLET PO SCH (06:52)
[2022-08-28 07:02] LABS: ANION GAP 11 (5-15); CALCIUM 8.7 mg/dL (8.4-11.0); CHLORIDE 102 mmol/L (98-107); CREATININE 0.46 mg/dL (0.55-1.30); GLUCOSE 116 mg/dL (70-99); UREA NITROGEN, BLOOD 11 mg/dL (8-21)
--- NOTE | 2022-08-28 08:00 | NUR ---
Mr Estrada has been assessed as indicated. She is drowsy butt arouses easily. She wakes up and takes her meds as well as answers all questions. She requests that she be allowed to go back to sleep for a little bit more time. She has no s/s of distress or discomfort at this time.
[2022-08-28] MEDS: amLODIPine BESYLATE 10 MG TABLET PO SCH (09:00)
[2022-08-28] MEDS: AMIODARONE HCL 200 MG TABLET PO SCH (09:00)
[2022-08-28] MEDS: FERROUS SULFATE 325 MG TABLET.DR PO SCH ×2 (09:50→22:49)
[2022-08-28] MEDS: busPIRone HCL 5 MG TABLET PO SCH ×2 (09:51→21:00)
[2022-08-28] MEDS: ASPIRIN 81 MG TAB.CHEW PO SCH (09:51)
[2022-08-28] MEDS: HEPARIN SODIUM,PORCINE 5,000 UNITS/ML VIAL SUBCUT SCH (10:04)
[2022-08-28] MEDS: metroNIDAZOLE 500 mg/NS 100 ML IV SCH ×2 (10:15→22:48)
--- NOTE | 2022-08-28 11:16 | NUR ---
CM: late entry: faxed snf referral to [facility], per Eric/spouse and dr. Potter 's commendation. The pt is accepted to room 108B, report # [id number]. Ambulance:booked Medic 1 # [phone] for 3:30 pm pick pack worker. -- ABIGAIL Mancuso made aware, dc package placed in [facility].
--- NOTE | 2022-08-28 12:00 | NUR ---
Miss Estrada is awake and talking with family that are at the bedside. They are aware of the plan to DC to [place] today. They are compliant with the plan to DC. They will inform Miss Estrada of the transfer. When informed that she was too sleepy for breakfast this morning, her son stated that it was good for her to get some sleep because she usually doesn't sleep well. She is awake and being assisted with her dinner by her with her son at the bedside also.
--- NOTE | 2022-08-28 13:15 | NUR ---
Miss Estrada has been informed of the transfer to [facility] she begins to have panic attack. PO Ativan is provided.
[2022-08-28] MEDS: FLUCONAZOLE 100 mg/ NS 50 ML IV SCH (13:17)
[2022-08-28] MEDS: NACL 0.9% 1,000 ML IV SCH (13:24)
--- NOTE | 2022-08-28 15:22 | NUR ---
PHYSICAL THERAPY CO-SIGN The Physical Therapy Progress Notes documented by Sample Coordinator have been reviewed. Reviewed/Co-Signed by: Yaya Jarquin Documentation Done by:LA NENA HILL Addendum: 08/28/22 at 1523 by Yaya Jarquin PT Amended: Links added.
--- NOTE | 2022-08-28 16:40 | NUR ---
Miss Estrada son is at the bedside. He states that he has counted her respiratory rate at 32. She does not appear to be in distress to this journalists and other writers. Respiratory therapy is called for a Nebulizer treatment
--- NOTE | 2022-08-28 16:45 | NUR ---
[facility] arrives to transport Miss Estrada the tanker truck driver Carley is collecting a last set of vitals before transport and the pulse ox is noted to be low. Staff attempt to get a accurate pulse ox level with several monitor device and probes.
[2022-08-28] MEDS: IPRATROPIUM/ALBUTEROL SULFATE 3 ML AMPUL.NEB (DUONEB) INH PRN (17:09)
--- NOTE | 2022-08-28 17:45 | NUR ---
Staff unable to obtain pulse ox level. ambulance service cancelled. Lorena at [facility] is made aware that she will not be arriving tonight. Adri in is made aware. Miss Estrada is at the bedside for the entire process and is aware that she will not leaving at this time.
--- NOTE | 2022-08-28 18:05 | NUR ---
Dr Potter made aware of the pulse ox. DC cancelled orders stat ABG
--- NOTE | 2022-08-28 19:15 | NUR ---
Dr Potter made aware of ABG results. He consults Dr. Angie leon. Angie contacted and new orders received. Mr Estrada made aware of the orders and the plan of care.
--- NOTE | 2022-08-28 19:32 | NUR ---
Paged Dr. Adams s/teo Levine
--- NOTE | 2022-08-28 19:35 | NUR ---
handoff given to Belinda
[2022-08-28 20:02] LABS: HEMATOCRIT 28.6 % (36-48); MEAN CORPUSCULAR HEMOGLOBIN 20 pg (27-31); WHITE BLOOD COUNT (AUTO) 22.2 K/uL (4.8-10.8)
[2022-08-28 20:10] LABS: ANION GAP 10 (5-15); CALCIUM 8.8 mg/dL (8.4-11.0); CHLORIDE 103 mmol/L (98-107); CREATININE 0.57 mg/dL (0.55-1.30); GLUCOSE 124 mg/dL (70-99); UREA NITROGEN, BLOOD 13 mg/dL (8-21)
[2022-08-28 20:12] LABS: HEMOGLOBIN 8.7 g/dL (12.0-16.0); MEAN CORPUSCULAR HGB CONC 30 % (32-36); MEAN CORPUSCULAR VOLUME 64 fL (79.0-98.0); PLATELET COUNT (AUTO) 434 K/uL (130-430); RED BLOOD CELL COUNT(AUTO) 4.45 MIL/uL (4.2-6.2); RED CELL DISTRIBUTION WIDTH 24.5 % (9.0-15.0)
[2022-08-28] MEDS ORDERED: iohexoL 350 mgI/mL, 100 ML INFUS..BTL IV ONE (20:27)
--- NOTE | 2022-08-28 20:42 | NUR ---
NOTES; NOTIFIED DR. BOWLES REGARDING CRITICAL ABG RESULT AND ELEVATED [id number] AND WE CALLED RAPID RESPONSE ON PATIENT. PEDIATRIC ONCOLOGIST- DHALIWAL & RAPID RESPONSE TEAM CALLED AND ARRIVED AT PT'S ROOM NOW. -TRANSFER PT TO ICU STAT AND HAVE ICU NURSE TO CALL DR. BOWLES WHEN PT ARRIVES IN ICU UNIT. IF PT NEED INTUBATION, CALLS RAPID RESPONSE AND EVALUATION FOR INTUBATION. VS 106/59,114, E8BBR=87-04% WITH NONBREATHER MASK. Addendum: 08/28/22 at 2140 by Arlin Guthrie RN RN ADDITIONAL NOTES; XL=[phone]
--- NOTE | 2022-08-28 20:58 | NUR ---
TELEMETRY TRANSFER Pt received from Tele after a Rapid Response call. Pt was complaining of SOB O2 sat in the high 80s. Pt was started on BIPAP upon arrival. BiPAP settings 14/8 BUR 14 100% fio2. HR 94 BP 120/[address] Adams notified of transfer additional orders received.
--- NOTE | 2022-08-28 20:58 | NUR ---
TRANSFERRING PT TO ICU UNIT VIA BED -Endorsed to [facility] nurse regarding pt is desat with non-rebreathing mask 76-82%, all belongings taken by spouse to take home except reading glasses with pt. Also, [facility] after pt arrives in ICU and if pt needs intubation, calls Rapid Response and evaluation for intubation per md order.
[2022-08-28 21:25] LABS: BAND % (MANUAL) 0 % (0-6); BASOPHILS % (MANUAL) 0 % (0-2); EOSINOPHILS % (MANUAL) 0 % (0-7); LYMPHOCYTES % (MANUAL) 5 % (20-46); MONOCYTES % (MANUAL) 3 % (0-11)
[2022-08-28] MEDS ORDERED: FUROSEMIDE 20 MG/2 ML VIAL IVP ONE (21:30)
[2022-08-28] MEDS ORDERED: *HEPARIN PER PHARMACY XX ONE (21:30)
--- NOTE | 2022-08-28 22:00 | NUR ---
PM SHIFT ASSESSMENT Patient is awake and alert x2. BIPAP on per MD order. SR on monitor. Skin warm and dry. Safety precautions in place, call light within reach. Will continue to monitor.
[2022-08-28 22:24] LABS: PROTHROMBIN TIME 10.9 SECS (9.5-12.5)
--- NOTE | 2022-08-28 22:40 | NUR ---
IV PLACEMENT: # 20 gauge angiocath placed to RAC. Use of asceptic technique. Opsite placed over site. Blood return noted. Flushed with 10 cc of normal saline. No evidence of infiltration noted. Patient tolerated well.
[2022-08-28] MEDS ORDERED: HEPARIN SODIUM,PORCINE 2000 UNITS/0.4 ML BOLUS IVP PRN (22:45)
[2022-08-28] MEDS ORDERED: HEPARIN SODIUM,PORCINE 3000 UNITS/0.6 ML BOLUS IVP PRN (22:45)
--- NOTE | 2022-08-28 22:55 | NUR ---
HEPARIN DRIP Spoke to conductor pullman pharmacistJez. Verified Heparin IVP BOLUS and start rate. Will carry out order.
[2022-08-28] MEDS ORDERED: HEPARIN SODIUM,PORCINE 5,000 UNITS/ML VIAL IV ONE ×2 (23:00)
--- NOTE | 2022-08-28 23:03 | NUR ---
DR WILBUR Adams notified of BNP and CXR results. Orders received. 1. Ok to hold Chest CT until AM 2. Insert feliciano for output monitoring 3. Continue with Heparin drip orders.
[2022-08-28] MEDS: HEPARIN 25,000 UNITS in 250 ML PREMIX IV PRN (23:06)
--- NOTE | 2022-08-28 23:30 | NUR ---
ORTA CATH: # 16 FR Orta catheter with 10 cc bulb inserted with use of sterile technique. Bulb inflated with 10 cc sterile water. Immediate return of 200 jing colored urine noted. Bedside drainage bag placed below level of bladder. Pt tolerated procedure well.
[2022-08-29] VITALS (30 sets, daily range): BP systolic 84–148
[2022-08-29 06:28] LABS: ANION GAP 11 (5-15); CALCIUM 8.6 mg/dL (8.4-11.0); CHLORIDE 104 mmol/L (98-107); CREATININE 0.52 mg/dL (0.55-1.30); GLUCOSE 140 mg/dL (70-99); UREA NITROGEN, BLOOD 12 mg/dL (8-21)
[2022-08-29 06:30] LABS: BASOPHILS # (AUTO) 0.1 K/uL (0.0-0.2); BASOPHILS % (AUTO) 0.2 % (0.0-2.0); EOSINOPHILS % (AUTO) 0.1 % (0.0-4.0); HEMATOCRIT 31.9 % (36-48); HEMOGLOBIN 9.6 g/dL (12.0-16.0); LYMPHOCYTES # (AUTO) 14.3 K/uL (1.0-5.5); LYMPHOCYTES % (AUTO) 43.8 % (20.5-51.5); MEAN CORPUSCULAR HEMOGLOBIN 20 pg (27-31); MEAN CORPUSCULAR HGB CONC 30 % (32-36); MEAN CORPUSCULAR VOLUME 65 fL (79.0-98.0); MONOCYTES # (AUTO) 0.6 K/uL (0.0-1.0); MONOCYTES % (AUTO) 1.7 % (1.7-9.3); NEUTROPHILS # (AUTO) 17.7 K/uL (1.8-7.7); NEUTROPHILS % (AUTO) 54.2 % (40.0-70.0); PLATELET COUNT (AUTO) 406 K/uL (130-430); RED BLOOD CELL COUNT(AUTO) 4.93 MIL/uL (4.2-6.2); RED CELL DISTRIBUTION WIDTH 26.9 % (9.0-15.0)
[2022-08-29] MEDS: LEVOTHYROXINE SODIUM 0.1 MG TABLET PO SCH (06:39)
[2022-08-29 06:40] LABS: WHITE BLOOD COUNT (AUTO) 32.6 K/uL (4.8-10.8)
--- NOTE | 2022-08-29 07:19 | NUR ---
ENDORSEMENT PATIENT CARE ENDORSED TO PRECIOUS HAYES.
[2022-08-29] MEDS ORDERED: FUROSEMIDE 40 MG/4 ML VIAL IVP ONE (08:45)
--- NOTE | 2022-08-29 09:05 | NUR ---
Primary Dr. Potter @ bedside. with orders to intubate, 10 etom, 50 patito ordered, PROCUREMENT BUYER @ bedside. Pt verbalized understanding, denies any pain or discomfort @ this time.
--- NOTE | 2022-08-29 10:10 | NUR ---
Eric @ bedside, Dr. Adams had previously gotten consent and spoke to him and other son Golden earlier of pt's status and intubation. Consent was also received for PICC placement. Eric was updated and all questions answered. granddaughter and other son Tee also visiting , answered all questions and updated on pt's status.
[2022-08-29] MEDS: FLUCONAZOLE 100 mg/ NS 50 ML IV SCH ×2 (10:12→10:17)
[2022-08-29] MEDS: metroNIDAZOLE 500 mg/NS 100 ML IV SCH ×2 (10:57→22:49)
--- NOTE | 2022-08-29 11:00 | NUR ---
PICC nurse @ bedside, timeout done , sterile technique witnessed in prep of pt.
--- NOTE | 2022-08-29 11:14 | NUR ---
Critical trop noted 1568, PA for cardiology Marcelino @ bedside, no new orders, Also ABG results back, vent settings adjusted O2 decreased to 80% based on pO2 of 138.9, rate increased to 20 from 16 as pCO2 53.6, see lab results for othEr results form ABG, Charge nurse is also notifying Dr. Adams of results and vent changes
--- NOTE | 2022-08-29 11:28 | NUR ---
Dr. Adams wants vent settings back to rate of 16 from previous settings
[2022-08-29] MEDS ORDERED: PROPOFOL DRIP 100 ML IV ONE (11:30)
--- NOTE | 2022-08-29 11:30 | NUR ---
biofuels processing technician @ bedside
--- NOTE | 2022-08-29 11:45 | NUR ---
PULLED ETT BACK 2cm FROM 23cm TEETH TO 21cm TEETH
[2022-08-29] MEDS: PROPOFOL DRIP 100 ML IV PRN ×3 (12:23→18:44)
--- NOTE | 2022-08-29 12:30 | NUR ---
Nutrition F/U RD reviewed pts current EMR including diet hx, physician notes, nursing notes, pertinent labs/meds/procedures, care trends and care activity. Short note d/t high workload Subjective Information Pt was admitted to ICU after SENIA DANIELSON was called and intubated this morning d/t respiratory distress. RD s/w RN regarding pt condition. There are plans for a CT w/ contrast today to see if pt has PE. Pt was A&O x 4 before intubation. RN reports high Trop and BNP >1000, so pt is on heparin drip. Propofol was started at 1.886 mL/hr (50 kcal). Per EMR review: last BM 08/28 x 2; abd soft, non-distended, w/ active bowel sounds. Current Diet Order/Nutrition Support Mechanical soft, Ensure HP BID x 3 days % PO intake NPO Last BM 08/28 x 2 Estimated Energy Expenditure (kcals/day) 1564 kcal (PSU 2003: vent/ICU. MSJ 1097, Tmax 37.4, VeTot 15.4) Estimated Protein Required (g/day) 46-88 g (0.8-1.4g/kg CBW dt sepsis, LUIS FERNANDO-improving) Estimated Fluid Required (l/day) Refer to MD (CHF) Problem/Etiology/Signs/Symptoms * Suboptimal nutrient intakes R/T decreased appetite AEB pt report of decreased PO intake and documentation (ongoing) Expected Outcomes/Goals PO intake provides >85% estimated nutrient needs, nutrition-related labs trending WNL, continued skin integrity, BM q1-3 days Dietitian Recommendations * If/when med appropriate, initiate Osmolite 1.2 @ 55 mL/hr (goal) via NGT/OGT Provides: 1584 kcal, 73 g PRO, 1082 mL free water Meets: 101% est kcal, 83% of upper PRO * MD to clarify free water flush * Please update diet order to reflect current diet * If pt, extubated please contact RD to re-assess needs Follow up *High risk: see pt in 2-3 days GS, MPH, RD
--- NOTE | 2022-08-29 12:33 | NUR ---
Dietitian Recommendations * If/when med appropriate, initiate Osmolite 1.2 @ 55 mL/hr (goal) via NGT/OGT Provides: 1584 kcal, 73 g PRO, 1082 mL free water Meets: 101% est kcal, 83% of upper PRO * MD- to clarify free water flush * Please update diet order to reflect current diet * If pt, extubated please contact RD to re-assess needs GS, MPH, RD Please refer to Nutrition F/U for further details. Thanks!
[2022-08-29] MEDS ORDERED: iohexoL 350 mgI/mL, 100 ML INFUS..BTL IV ONE (12:35)
[2022-08-29] MEDS ORDERED: ISOSORBIDE MONONITRATE 30 MG TAB.ER.24H PO ONE (12:45)
[2022-08-29] MEDS ORDERED: CARVEDILOL 6.25 MG TABLET (COREG) PO ONE (12:45)
--- NOTE | 2022-08-29 14:11 | NUR ---
Brought pt to CT @ 1300 with assistance from SCREW MACHINE SETTER and instrument tech, pt was hooked to heart monitor and pulse oximetry as well as heparin gtt and propofol gtt. Pt brought back to room @ 1325, vital signs stable, reattached pt to monitors in room. Radiologist called @ 1400 to notify of findings on CT, see report. Also per radiologist, NG was kinked and needed to be pulled back, Ng Tube pulled back and OG reinserted with assistance from charge Divina. Paged Dr. Adams @ 1400 to inform him of radiologist's results, left message with answering service. Dr. Adams returned call @ 1406 with no new orders but verified the results that radiologist had reported. Informed him that chest xray will be reordered to confirm placement of new OG tube placement.
--- NOTE | 2022-08-29 15:11 | NUR ---
xray @ bedside for confirmation of new OG tube placement
[2022-08-29] MEDS: HEPARIN 25,000 UNITS in 250 ML PREMIX IV PRN ×2 (15:18→21:38)
--- NOTE | 2022-08-29 15:58 | NUR ---
fire technician @ bedside
--- NOTE | 2022-08-29 16:19 | NUR ---
Unable to titrate from [facility] for propofol, initially started @ 5mch/kg/min but have had to titrate by 5mcg/kg/min every 5 mins per orders. Pt is currently maxed @ 50mcg/kg/min as of 1619. Will continue to monitor pt is still @ a RASS OF +1 restless. Levophed has also been started @ initial rate of 0.1mcg/kg/min with a goal MAP >60, see flowsheets for vital signs Addendum: 08/29/22 at 1629 by Lico Guthrie RN RN Also requested another label from pharmacy as their printer has not been printing med labels clearly, the second label still wont scan so nursing notes are being utilized to show titration of continuous drips
[2022-08-29] MEDS: FENTANYL CITRATE-0.9 % NACL/PF 100 ML IV PRN (18:18)
--- NOTE | 2022-08-29 19:35 | NUR ---
PM SHIFT ASSESSMENT Patient is sedated on the vent, tolerating current settings. SR on monitor. Skin warm and dry. Safety precautions in place, call light within reach. Will continue to monitor.
[2022-08-29] MEDS: FERROUS SULFATE 325 MG TABLET.DR PO SCH (21:25)
[2022-08-29] MEDS: busPIRone HCL 5 MG TABLET PO SCH (21:25)
[2022-08-29] MEDS: CARVEDILOL 6.25 MG TABLET (COREG) PO SCH (21:26)
[2022-08-29] MEDS: ERAVACYCLINE DI-HYDROCHLORIDE 65 MG in NS 250 ML IV SCH (21:27)
[2022-08-30] VITALS (37 sets, daily range): BP systolic 92–131
[2022-08-30] MEDS: PROPOFOL DRIP 100 ML IV PRN ×3 (00:01→21:05)
[2022-08-30] MEDS: FENTANYL CITRATE-0.9 % NACL/PF 100 ML IV PRN (05:52)
[2022-08-30 06:11] LABS: BASOPHILS # (AUTO) 0.1 K/uL (0.0-0.2); BASOPHILS % (AUTO) 0.5 % (0.0-2.0); EOSINOPHILS # (AUTO) 0.2 K/uL (0.0-0.4); EOSINOPHILS % (AUTO) 0.9 % (0.0-4.0); HEMATOCRIT 26.8 % (36-48); HEMOGLOBIN 8.3 g/dL (12.0-16.0); LYMPHOCYTES # (AUTO) 6.2 K/uL (1.0-5.5); LYMPHOCYTES % (AUTO) 31.6 % (20.5-51.5); MEAN CORPUSCULAR HEMOGLOBIN 20 pg (27-31); MEAN CORPUSCULAR HGB CONC 31 % (32-36); MEAN CORPUSCULAR VOLUME 64 fL (79.0-98.0); MONOCYTES # (AUTO) 0.7 K/uL (0.0-1.0); MONOCYTES % (AUTO) 3.8 % (1.7-9.3); NEUTROPHILS # (AUTO) 12.4 K/uL (1.8-7.7); NEUTROPHILS % (AUTO) 63.2 % (40.0-70.0); PLATELET COUNT (AUTO) 435 K/uL (130-430); RED BLOOD CELL COUNT(AUTO) 4.16 MIL/uL (4.2-6.2); RED CELL DISTRIBUTION WIDTH 23.1 % (9.0-15.0); WHITE BLOOD COUNT (AUTO) 19.7 K/uL (4.8-10.8)
[2022-08-30 06:17] LABS: ANION GAP 10 (5-15); CALCIUM 8.4 mg/dL (8.4-11.0); CHLORIDE 105 mmol/L (98-107); CREATININE 0.63 mg/dL (0.55-1.30); GLUCOSE 129 mg/dL (70-99); UREA NITROGEN, BLOOD 19 mg/dL (8-21)
[2022-08-30] MEDS: LEVOTHYROXINE SODIUM 0.1 MG TABLET PO SCH (06:57)
--- NOTE | 2022-08-30 07:30 | NUR ---
ENDORSEMENT PATIENT CARE ENDORSED TO PRECIOUS HAYES. ALL NEEDS MET.
--- NOTE | 2022-08-30 08:00 | NUR ---
RT NOTES FIO2 TO 60 per titration order. No adverse reactions noted. Will monitor pt.
[2022-08-30] MEDS ORDERED: FUROSEMIDE 20 MG/2 ML VIAL IVP ONE ×2 (09:00→20:30)
--- NOTE | 2022-08-30 09:15 | NUR ---
RT NOTES FIO2 TO 0.55
--- NOTE | 2022-08-30 11:00 | NUR ---
RT NOTES FIO2 TO 0.50
[2022-08-30] MEDS: amLODIPine BESYLATE 10 MG TABLET PO SCH ×2 (13:04→13:14)
[2022-08-30] MEDS: DOCUSATE SODIUM 100 MG CAPSULE PO PRN ×2 (13:06→13:14)
[2022-08-30] MEDS: FERROUS SULFATE 325 MG TABLET.DR PO SCH ×2 (13:06→21:21)
[2022-08-30] MEDS: AMIODARONE HCL 200 MG TABLET PO SCH ×2 (13:07→13:15)
[2022-08-30] MEDS: ASPIRIN 81 MG TAB.CHEW PO SCH ×2 (13:07→13:13)
[2022-08-30] MEDS: busPIRone HCL 5 MG TABLET PO SCH ×2 (13:08→21:20)
[2022-08-30] MEDS: metroNIDAZOLE 500 mg/NS 100 ML IV SCH ×2 (13:09→21:19)
[2022-08-30] MEDS: ERAVACYCLINE DI-HYDROCHLORIDE 65 MG in NS 250 ML IV SCH ×2 (13:10→21:20)
[2022-08-30] MEDS: CARVEDILOL 6.25 MG TABLET (COREG) PO SCH ×2 (13:13→21:21)
[2022-08-30] MEDS: FLUCONAZOLE 100 mg/ NS 50 ML IV SCH (13:16)
[2022-08-30] MEDS: ISOSORBIDE MONONITRATE 30 MG TAB.ER.24H PO SCH (13:17)
--- NOTE | 2022-08-30 13:18 | NUR ---
RT NOTES FIO2 TO 0.45
[2022-08-30] MEDS: HEPARIN 25,000 UNITS in 250 ML PREMIX IV PRN (13:24)
[2022-08-30] MEDS ORDERED: POTASSIUM CHLORIDE 20 MEQ TAB.PRT.SR PO ONE (14:00)
--- NOTE | 2022-08-30 15:55 | NUR ---
RT NOTES FIO2 TO 0.40
--- NOTE | 2022-08-30 17:03 | NUR ---
RT NOTES Found pt with low sat 80%, Rn stated, pt was just turned. FIO2 TO 0.60 Sat improved to 93%
--- NOTE | 2022-08-30 17:22 | NUR ---
Wound Evaluation: Wound Consult ordered for Low Avinash Score. Patient evaluated for a low Avinash score of 13. Patient was awake, confused, and received in a [place] Bed with an Isoflex JERONIMO mattress. Patient needs to be turned in bed. Skin assessment: 1. Left Upper Extremity: Skin tear. Skin tear site has 100% red tissue. No odor, no drainage. Periwound intact. Extremity has edema. Recommend: Cleanse skin tear with normal saline. Gently pat dry around skin tear. Apply Sureprep to perimeter of skin tear. Apply hydrogel to skin tear site. Cover with nonadhesive foam dressing. Wrap with Blanquita wrap. Perform site care daily, and as needed for dressing soiling or dislodgment. Elevate extremity as tolerated. 2. Right Upper Extremity: Extremity has edema. Recommend: Elevate extremity as tolerated. Also recommend: Reposition patient every 2 hours with pillow support. Elevate, off-load and float bilateral heels with pillows. Offload pressure areas with pillows for pressure re-distribution. Perform skin care and monitor skin integrity Q shift. Use moisture barrier cream on moisture susceptible areas QID and PRN for soiling. Initiate low air-loss therapy by adding an air pump to the mattress.
[2022-08-31] VITALS (29 sets, daily range): BP systolic 90–155
[2022-08-31] MEDS: FENTANYL CITRATE-0.9 % NACL/PF 100 ML IV PRN ×2 (00:46→23:05)
[2022-08-31] MEDS: NOREPINEPHRINE BITARTRATE 16 MG in D5W 234 ML IV PRN ×3 (00:47→19:11)
[2022-08-31] MEDS: PROPOFOL DRIP 100 ML IV PRN (01:51)
[2022-08-31] MEDS: LEVOTHYROXINE SODIUM 0.1 MG TABLET PO SCH (06:22)
--- NOTE | 2022-08-31 06:35 | NUR ---
End of Shift Note: GCS 7-8, opens eyes to both the voice and painful stimuli, however, does not follow any commands. Attempted to titrate down on sedative and opioid gtt as pt tolerates, but pt was noted to darling against the vent and desat down to 80-85% SpO2. Thus, fent is currently infusing at 125mcg/kg/min, propofol brought down to 35mcg/kg/min, levophed at 0.43mcg/kg/min and no changes from the previous day shift on the heparin gtt dosage infusing at 1200U. APTT drawn on 08/30/2022 was within the goal, therefore, the daily lab for Coag has been put in by the customer engineer. Otherwise, no acute overnight issues or events. Pt has not been started on tube feed Vital AF 1.2 as ordered due to its unavailability on the unit overnight. Will notify the day shift team to start on it as soon as it arrives from Dietary. Will continue to monitor. 0715: Reports given to the day shift for continuity of care.
--- NOTE | 2022-08-31 07:24 | NUR ---
RT NOTES Pt desaturates with any stimulation, FIO2 to 0.60, sat improved to 97%, titrated down to 0.50 sat94%. will cont. to monitor pt.
[2022-08-31] MEDS: ISOSORBIDE MONONITRATE 30 MG TAB.ER.24H PO SCH (09:00)
[2022-08-31] MEDS: ASPIRIN 81 MG TAB.CHEW PO SCH (09:00)
[2022-08-31] MEDS: busPIRone HCL 5 MG TABLET PO SCH ×2 (09:00→21:34)
[2022-08-31] MEDS: metroNIDAZOLE 500 mg/NS 100 ML IV SCH ×2 (09:00→21:36)
[2022-08-31] MEDS: amLODIPine BESYLATE 10 MG TABLET PO SCH (09:00)
[2022-08-31] MEDS: AMIODARONE HCL 200 MG TABLET PO SCH (09:00)
[2022-08-31] MEDS: FERROUS SULFATE 325 MG TABLET.DR PO SCH ×2 (09:00→21:34)
[2022-08-31] MEDS: CARVEDILOL 6.25 MG TABLET (COREG) PO SCH ×2 (09:00→21:35)
[2022-08-31] MEDS: PANTOPRAZOLE SODIUM 40 MG/VIAL (PROTONIX) IVP SCH (09:00)
[2022-08-31] MEDS: ERAVACYCLINE DI-HYDROCHLORIDE 65 MG in NS 250 ML IV SCH ×2 (09:00→21:36)
[2022-08-31] MEDS: POTASSIUM CHLORIDE 20 MEQ TAB.PRT.SR PO SCH (09:00)
--- NOTE | 2022-08-31 09:40 | NUR ---
PTT 94, HEPARIN DRIP ON HOLD FOR 1 HR
[2022-08-31] MEDS ORDERED: FUROSEMIDE 20 MG/2 ML VIAL IVP ONE (10:00)
--- NOTE | 2022-08-31 10:00 | NUR ---
DR Henderson CALLED, AWARE OF HEPARIN STOPPED FOR 1 HR, INFORMED DR Henderson TO PLACE AN ORDER FOR 1500 FOR PTT, STATED HE DIDNT SEE ANY AM LABS, INFORMED HIM THAT I WILL CALL LAB
--- NOTE | 2022-08-31 10:05 | NUR ---
DR CARTER STATED HE PLACED AN ORDR FOR LASIX
[2022-08-31 10:27] LABS: HEMATOCRIT 27.6 % (36-48); HEMOGLOBIN 8.5 g/dL (12.0-16.0); MEAN CORPUSCULAR HEMOGLOBIN 20 pg (27-31); MEAN CORPUSCULAR HGB CONC 31 % (32-36); MEAN CORPUSCULAR VOLUME 65 fL (79.0-98.0); PLATELET COUNT (AUTO) 382 K/uL (130-430); RED BLOOD CELL COUNT(AUTO) 4.28 MIL/uL (4.2-6.2); RED CELL DISTRIBUTION WIDTH 31.1 % (9.0-15.0)
--- NOTE | 2022-08-31 10:40 | NUR ---
HEPARIN AT 1ML/HR
[2022-08-31 10:41] LABS: WHITE BLOOD COUNT (AUTO) 15.9 K/uL (4.8-10.8)
--- NOTE | 2022-08-31 11:03 | NUR ---
RT NOTES again with any stimulation, pt desaturates, during EKG, sat to 85%, FIO2 to 0.65 improved to 97%, after 15 minutes or so, FIO2 back down to 50%. RN notified.
[2022-08-31 11:18] LABS: ANION GAP 8 (5-15); CALCIUM 8.5 mg/dL (8.4-11.0); CHLORIDE 107 mmol/L (98-107); CREATININE 0.41 mg/dL (0.55-1.30); GLUCOSE 130 mg/dL (70-99); UREA NITROGEN, BLOOD 16 mg/dL (8-21)
[2022-08-31 11:25] LABS: ALANINE AMINOTRANSFERASE 26 U/L (12-78); ALBUMIN 1.5 g/dL (3.4-4.8); ASPARTATE AMINOTRANSFERASE 45 U/L (10-37); TOTAL BILIRUBIN 0.2 mg/dL (0.0-1.0)
[2022-08-31] MEDS: FLUCONAZOLE 100 mg/ NS 50 ML IV SCH (11:25)
--- NOTE | 2022-08-31 11:40 | NUR ---
TAPE CONTROL SKIN OR SPAR MILL OPERATOR AT BEDSIDE AWARE OF HEPARIN DOSING
[2022-08-31 14:40] LABS: ATYPICAL LYMPHOCYTES % 0 % (0-0); BAND % (MANUAL) 0 % (0-6); BASOPHILS % (MANUAL) 0 % (0-2); EOSINOPHILS % (MANUAL) 9 % (0-7); LYMPHOCYTES % (MANUAL) 18 % (20-46); MONOCYTES % (MANUAL) 2 % (0-11)
--- NOTE | 2022-08-31 16:09 | NUR ---
Nutrition F/U RD reviewed pts current EMR including diet hx, physician notes, nursing notes, pertinent labs/meds/procedures, care trends and care activity. Short note d/t high workload Subjective Information: RD and network intern attended ICU rounds this morning. Witnessed no TF infusing at bedside. Primary RN reported that pt's OGT remains clamped, +bilat wrist restraints, propofol infusing at 35 mcg/kg/cristopher, and no plans for weaning pt off of vent support at this time. VAT CLEANER came by [facility] dept this afternoon to retrieve Vital AF 1.2 TF formula -- plan for RN to initiate TF soon. Current Diet Order/Nutrition Support: Vital AF 1.2 at 30 ml/hr, Free Water Flush: 30 via OGT x0 days % PO intake: N/A Last BM: x2 08/28 (3 days ago) NEW Estimated Energy Expenditure (kcals/day) 1344 (PSU 2002 d/t vent/ICU status; Tmax: 37.6'C, Ve: 7.3) NEW Estimated Protein Required (g/day) 94-125 (1.5-2 gm/kg CBW d/t sepsis) Estimated Fluid Required (l/day) Refer to MD (CHF) Problem/Etiology/Signs/Symptoms * Suboptimal nutrient intakes R/T decreased appetite AEB pt report of decreased PO intake and documentation. *Ongoing * Inadequate EN support R/T metabolic demands AEB no current infusing EN support. *New Expected Outcomes/Goals PO intake provides >85% estimated nutrient needs, nutrition-related labs trending WNL, continued skin integrity, BM q1-3 days Dietitian Recommendations * Vital AF 1.2 at 50 ml/hr (goal rate) via OGT Provides: 1440 kcal/day, 90 gm protein/day, and 973 ml free water/day Meets: 107% of estimated caloric needs and 96% of lower end of estimated protein needs * Physician to clarify free water flush d/t CHF * If pt, extubated please contact RD to re-assess nutritional needs Follow up High Risk: F/U within 2-3 days Addendum: 08/31/22 at [address] CORRECTION: Current Diet Order/Nutrition Support: Vital AF 1.2 at 30 ml/hr, Free Water Flush: 50 via OGT x0 days Addendum: 08/31/22 at [address] Pt is receiving propofol at 15.084 ml/hr (398 kcal/day). Consider gradually increasing TF to goal rate, as pt is also receiving calories from lipids from propofol infusion.
--- NOTE | 2022-08-31 16:15 | NUR ---
Dietitian Recommendations * Vital AF 1.2 at 50 ml/hr (goal rate) via OGT Provides: 1440 kcal/day, 90 gm protein/day, and 973 ml free water/day Meets: 107% of estimated caloric needs and 96% of lower end of estimated protein needs * Physician to clarify free water flush d/t CHF * If pt, extubated please contact RD to re-assess nutritional needs LP, MS, RD Please refer to Nutrition F/U for details.
[2022-08-31] MEDS ORDERED: *LOVENOX 1MG/KG Q12H/PHARMACY XX ONE ×2 (19:15→22:00)
[2022-08-31] MEDS ORDERED: ENOXAPARIN SODIUM 80 MG/0.8 ML SYRINGE SUBCUT SCH (21:00)
[2022-08-31] MEDS: FUROSEMIDE 20 MG/2 ML VIAL IVP SCH (21:36)
[2022-08-31] MEDS ORDERED: ENOXAPARIN SODIUM 100 MG/ML SYRINGE ONE (21:55)
[2022-08-31] MEDS: ENOXAPARIN SODIUM 100 MG/ML SYRINGE SUBCUT SCH (22:03)
[2022-09-01] VITALS (32 sets, daily range): BP systolic 96–136
[2022-09-01] MEDS: PROPOFOL DRIP 100 ML IV PRN ×5 (01:42→22:30)
[2022-09-01] MEDS: NOREPINEPHRINE BITARTRATE 16 MG in D5W 234 ML IV PRN ×2 (03:07→12:17)
[2022-09-01] MEDS: FENTANYL CITRATE-0.9 % NACL/PF 100 ML IV PRN ×3 (03:26→15:29)
--- NOTE | 2022-09-01 05:12 | NUR ---
End of Shift Note: No acute overnight issues or events. GCS remains 7-8, RASS -2, pt opens eyes to both the voice and painful stimuli, levophed infusing at 0.4mcg/kg/min, propofol 30mcg/kg/min, fentanyl at 125mcg/kg/min. Heparin gtt had been stopped and dc'd per MD order, and the scheduled dose of lovenox was initiated. Tube feed vital AF 1.2 currently running at 50ml/hr and pt is tolerating well. Otherwise, pt's status remains unchanged, will continue to monitor.
[2022-09-01] MEDS: LEVOTHYROXINE SODIUM 0.1 MG TABLET PO SCH (06:13)
--- NOTE | 2022-09-01 06:15 | NUR ---
Levophed infusing at 0.37mcg/kg/min, propofol 30mcg/kg/min, fentanyl 100mcg/kg/min. Will continue to monitor. 0700: Reports given to the day shift for continuity of care.
[2022-09-01 07:20] LABS: BASOPHILS # (AUTO) 0.1 K/uL (0.0-0.2); BASOPHILS % (AUTO) 0.6 % (0.0-2.0); EOSINOPHILS # (AUTO) 0.5 K/uL (0.0-0.4); EOSINOPHILS % (AUTO) 4.2 % (0.0-4.0); HEMATOCRIT 27.2 % (36-48); HEMOGLOBIN 8.4 g/dL (12.0-16.0); LYMPHOCYTES # (AUTO) 4.8 K/uL (1.0-5.5); LYMPHOCYTES % (AUTO) 41.6 % (20.5-51.5); MEAN CORPUSCULAR HEMOGLOBIN 20 pg (27-31); MEAN CORPUSCULAR HGB CONC 31 % (32-36); MEAN CORPUSCULAR VOLUME 66 fL (79.0-98.0); MONOCYTES # (AUTO) 0.2 K/uL (0.0-1.0); NEUTROPHILS % (AUTO) 51.6 % (40.0-70.0); PLATELET COUNT (AUTO) 347 K/uL (130-430); RED BLOOD CELL COUNT(AUTO) 4.14 MIL/uL (4.2-6.2); RED CELL DISTRIBUTION WIDTH 34.2 % (9.0-15.0); WHITE BLOOD COUNT (AUTO) 11.6 K/uL (4.8-10.8)
[2022-09-01 07:35] LABS: ANION GAP 8 (5-15); CALCIUM 8.1 mg/dL (8.4-11.0); CHLORIDE 108 mmol/L (98-107); CREATININE 0.45 mg/dL (0.55-1.30); GLUCOSE 149 mg/dL (70-99); UREA NITROGEN, BLOOD 15 mg/dL (8-21)
[2022-09-01] MEDS: amLODIPine BESYLATE 10 MG TABLET PO SCH (09:00)
[2022-09-01] MEDS: ISOSORBIDE MONONITRATE 30 MG TAB.ER.24H PO SCH (09:00)
[2022-09-01] MEDS: PANTOPRAZOLE SODIUM 40 MG/VIAL (PROTONIX) IVP SCH (09:03)
[2022-09-01] MEDS: busPIRone HCL 5 MG TABLET PO SCH ×2 (09:04→22:28)
[2022-09-01] MEDS: ASPIRIN 81 MG TAB.CHEW PO SCH (09:04)
[2022-09-01] MEDS: FERROUS SULFATE 325 MG TABLET.DR PO SCH ×2 (09:05→22:27)
[2022-09-01] MEDS: AMIODARONE HCL 200 MG TABLET PO SCH (09:06)
[2022-09-01] MEDS: POTASSIUM CHLORIDE 20 MEQ TAB.PRT.SR PO SCH (09:07)
[2022-09-01] MEDS: CARVEDILOL 6.25 MG TABLET (COREG) PO SCH ×2 (09:07→21:00)
[2022-09-01] MEDS: FUROSEMIDE 20 MG/2 ML VIAL IVP SCH ×2 (09:09→22:28)
[2022-09-01] MEDS: ENOXAPARIN SODIUM 100 MG/ML SYRINGE SUBCUT SCH ×2 (09:09→22:27)
[2022-09-01] MEDS: ERAVACYCLINE DI-HYDROCHLORIDE 65 MG in NS 250 ML IV SCH ×2 (09:17→22:28)
[2022-09-01 10:14] LABS: BASOPHILS # (AUTO) 0.1 K/uL (0.0-0.2); BASOPHILS % (AUTO) 0.6 % (0.0-2.0); EOSINOPHILS # (AUTO) 0.3 K/uL (0.0-0.4); EOSINOPHILS % (AUTO) 2.7 % (0.0-4.0); HEMATOCRIT 31.2 % (36-48); HEMOGLOBIN 9.2 g/dL (12.0-16.0); LYMPHOCYTES # (AUTO) 4.1 K/uL (1.0-5.5); LYMPHOCYTES % (AUTO) 32.1 % (20.5-51.5); MEAN CORPUSCULAR HEMOGLOBIN 20 pg (27-31); MEAN CORPUSCULAR HGB CONC 29 % (32-36); MEAN CORPUSCULAR VOLUME 67 fL (79.0-98.0); MONOCYTES # (AUTO) 0.4 K/uL (0.0-1.0); MONOCYTES % (AUTO) 2.8 % (1.7-9.3); NEUTROPHILS # (AUTO) 7.9 K/uL (1.8-7.7); NEUTROPHILS % (AUTO) 61.8 % (40.0-70.0); PLATELET COUNT (AUTO) 351 K/uL (130-430); RED BLOOD CELL COUNT(AUTO) 4.64 MIL/uL (4.2-6.2); RED CELL DISTRIBUTION WIDTH 32.7 % (9.0-15.0); WHITE BLOOD COUNT (AUTO) 12.8 K/uL (4.8-10.8)
--- NOTE | 2022-09-01 11:21 | NUR ---
rt notes 1121 titrated fio2 to 40%, pt saturating 100%. no distress noted.
[2022-09-01] MEDS: FLUCONAZOLE 100 mg/ NS 50 ML IV SCH (12:18)
[2022-09-01] MEDS: ACETAMINOPHEN 325 MG TABLET PO PRN (18:28)
[2022-09-01] MEDS ORDERED: POTASSIUM CHLORIDE 10 MEQ TAB.PRT.SR PO ONE (19:45)
[2022-09-02] VITALS (41 sets, daily range): BP systolic 81–130
[2022-09-02] MEDS: FENTANYL CITRATE-0.9 % NACL/PF 100 ML IV PRN (00:33)
[2022-09-02] MEDS: PROPOFOL DRIP 100 ML IV PRN ×3 (04:36→20:38)
[2022-09-02] MEDS: NOREPINEPHRINE BITARTRATE 16 MG in D5W 234 ML IV PRN ×2 (04:37→20:40)
--- NOTE | 2022-09-02 05:14 | NUR ---
End of Shift Note: No acute overnight issues or events. GCS remains 7-8, RASS -2, opens eyes to both the verbal and painful stimuli and withdraws extremities. No change on drips overnight, and fent remains infusing at 50mcg/kg/min, propofol 40mcg/kg/min and levophed now at 0.21mcg/kg/min. Will titrate up and down as pt's hemodynamic tolerates. Oral care q4, Q2 repositions to prevent skin breakdown, feliciano cath assessment q4 were performed per protocol. Pt is currently resting in bed on FiO2 40%, will continue to monitor.
[2022-09-02] MEDS: LEVOTHYROXINE SODIUM 0.1 MG TABLET PO SCH (06:20)
--- NOTE | 2022-09-02 06:43 | NUR ---
Levophed infusing at 0.18mcg/kg/min now. Map >65. Will continue to monitor. 0700: Reports given to the day shift for continuity of care.
[2022-09-02 06:44] LABS: BASOPHILS # (AUTO) 0.1 K/uL (0.0-0.2); BASOPHILS % (AUTO) 0.7 % (0.0-2.0); EOSINOPHILS # (AUTO) 0.6 K/uL (0.0-0.4); EOSINOPHILS % (AUTO) 4.4 % (0.0-4.0); HEMATOCRIT 27.9 % (36-48); HEMOGLOBIN 8.5 g/dL (12.0-16.0); LYMPHOCYTES # (AUTO) 2.6 K/uL (1.0-5.5); LYMPHOCYTES % (AUTO) 20.4 % (20.5-51.5); MEAN CORPUSCULAR HEMOGLOBIN 20 pg (27-31); MEAN CORPUSCULAR HGB CONC 31 % (32-36); MEAN CORPUSCULAR VOLUME 65 fL (79.0-98.0); MONOCYTES # (AUTO) 0.4 K/uL (0.0-1.0); MONOCYTES % (AUTO) 2.9 % (1.7-9.3); NEUTROPHILS # (AUTO) 9.3 K/uL (1.8-7.7); NEUTROPHILS % (AUTO) 71.6 % (40.0-70.0); PLATELET COUNT (AUTO) 334 K/uL (130-430); RED BLOOD CELL COUNT(AUTO) 4.29 MIL/uL (4.2-6.2); RED CELL DISTRIBUTION WIDTH 34.5 % (9.0-15.0); WHITE BLOOD COUNT (AUTO) 12.9 K/uL (4.8-10.8)
[2022-09-02 07:11] LABS: ALANINE AMINOTRANSFERASE 26 U/L (12-78); ALBUMIN 1.4 g/dL (3.4-4.8); ANION GAP 5 (5-15); ASPARTATE AMINOTRANSFERASE 25 U/L (10-37); CALCIUM 7.8 mg/dL (8.4-11.0); CHLORIDE 109 mmol/L (98-107); CREATININE 0.43 mg/dL (0.55-1.30); GLUCOSE 157 mg/dL (70-99); TOTAL BILIRUBIN 0.3 mg/dL (0.0-1.0); UREA NITROGEN, BLOOD 17 mg/dL (8-21)
--- NOTE | 2022-09-02 07:15 | NUR ---
Levophed titrated up to 0.24mcg/kg/min for map 58. Informed the day shift RN and endorsed the pt care to the day shift RN.
[2022-09-02] MEDS: amLODIPine BESYLATE 10 MG TABLET PO SCH (09:00)
[2022-09-02] MEDS: AMIODARONE HCL 200 MG TABLET PO SCH (09:00)
[2022-09-02] MEDS: ENOXAPARIN SODIUM 100 MG/ML SYRINGE SUBCUT SCH ×2 (09:00→20:51)
[2022-09-02] MEDS: CARVEDILOL 6.25 MG TABLET (COREG) PO SCH ×2 (09:00→20:51)
[2022-09-02] MEDS: PANTOPRAZOLE SODIUM 40 MG/VIAL (PROTONIX) IVP SCH (09:00)
[2022-09-02] MEDS: FUROSEMIDE 20 MG/2 ML VIAL IVP SCH ×2 (09:00→20:50)
[2022-09-02] MEDS: ASPIRIN 81 MG TAB.CHEW PO SCH (09:00)
[2022-09-02] MEDS: POTASSIUM CHLORIDE 20 MEQ TAB.PRT.SR PO SCH (09:00)
[2022-09-02] MEDS: FERROUS SULFATE 325 MG TABLET.DR PO SCH ×2 (09:00→20:57)
[2022-09-02] MEDS: ERAVACYCLINE DI-HYDROCHLORIDE 65 MG in NS 250 ML IV SCH ×2 (09:00→20:49)
[2022-09-02] MEDS: ISOSORBIDE MONONITRATE 30 MG TAB.ER.24H PO SCH (09:00)
[2022-09-02] MEDS: busPIRone HCL 5 MG TABLET PO SCH ×2 (09:06→20:50)
[2022-09-02] MEDS: DOCUSATE SODIUM 100 MG CAPSULE PO PRN ×2 (09:06→09:11)
[2022-09-02] MEDS: POTASSIUM CHLORIDE 20 MEQ TAB.PRT.SR PO PRN (09:08)
[2022-09-02] MEDS: FLUCONAZOLE 100 mg/ NS 50 ML IV SCH (11:56)
[2022-09-02] MEDS ORDERED: POTASSIUM CHLORIDE 10 MEQ TAB.PRT.SR PO ONE (14:30)
[2022-09-02] MEDS ORDERED: ALBUMIN HUMAN 25% 100 ML IV ONE (15:30)
[2022-09-02] MEDS ORDERED: LACTULOSE 20 GM/30 ML UDC NG PRN ×2 (15:45)
--- NOTE | 2022-09-02 15:50 | NUR ---
0730 recieved report from outgoing RN, seen patient resting on bed sedated and intubated, to ventilator assist control rate 16 peep 5, Tidal vol 450 and FIO2 35% patient is not on distress, with right upper arm PIC infusing levophed at 0.24 mcg/kg/min, fentanyl at 50 mcg/kg and propofol at 40 mcg/kg/min; patient is following simple commands. patient has feliciano catheter draining clear yellow urine. 1030 son at bedside and provided update all questions answered.
[2022-09-02 19:21] LABS: INR 1.1 (0.8-1.2); PROTHROMBIN TIME 11.6 SECS (9.5-12.5)
--- NOTE | 2022-09-02 21:15 | NUR ---
Called front end loader driver MD with critical value. Per MD no new orders.
[2022-09-02] MEDS: fentaNYL CITRATE/PF 100 MCG/2 ML AMP IVP PRN (21:40)
[2022-09-02] MEDS ORDERED: ACETAMINOPHEN 325 MG TABLET ONE (23:03)
[2022-09-02] MEDS: ACETAMINOPHEN 325 MG TABLET PO PRN (23:12)
[2022-09-03] VITALS (35 sets, daily range): BP systolic 92–150
[2022-09-03] MEDS: fentaNYL CITRATE/PF 100 MCG/2 ML AMP IVP PRN (06:39)
--- NOTE | 2022-09-03 07:25 | NUR ---
RT NOTE: 0725 Patient placed on CPAP 5, PS 10, 30% FiO2. Pt tolerating CPAP mode well. Will try for [address] Adams's order. Addendum: 09/03/22 at 0759 by Miya Brown RT Amended: Links added.
[2022-09-03 07:41] LABS: BASOPHILS # (AUTO) 0.1 K/uL (0.0-0.2); BASOPHILS % (AUTO) 0.7 % (0.0-2.0); EOSINOPHILS # (AUTO) 0.4 K/uL (0.0-0.4); EOSINOPHILS % (AUTO) 3.6 % (0.0-4.0); HEMATOCRIT 26.8 % (36-48); HEMOGLOBIN 8.2 g/dL (12.0-16.0); LYMPHOCYTES # (AUTO) 2.3 K/uL (1.0-5.5); LYMPHOCYTES % (AUTO) 21.6 % (20.5-51.5); MEAN CORPUSCULAR HEMOGLOBIN 20 pg (27-31); MEAN CORPUSCULAR HGB CONC 31 % (32-36); MEAN CORPUSCULAR VOLUME 66 fL (79.0-98.0); MONOCYTES # (AUTO) 0.4 K/uL (0.0-1.0); MONOCYTES % (AUTO) 4.1 % (1.7-9.3); NEUTROPHILS # (AUTO) 7.5 K/uL (1.8-7.7); PLATELET COUNT (AUTO) 333 K/uL (130-430); RED BLOOD CELL COUNT(AUTO) 4.08 MIL/uL (4.2-6.2); RED CELL DISTRIBUTION WIDTH 32.4 % (9.0-15.0); WHITE BLOOD COUNT (AUTO) 10.7 K/uL (4.8-10.8)
[2022-09-03 07:55] LABS: ANION GAP 8 (5-15); CALCIUM 8.4 mg/dL (8.4-11.0); CHLORIDE 111 mmol/L (98-107); CREATININE 0.38 mg/dL (0.55-1.30); GLUCOSE 136 mg/dL (70-99); UREA NITROGEN, BLOOD 20 mg/dL (8-21)
[2022-09-03] MEDS: ASPIRIN 81 MG TAB.CHEW PO SCH (08:14)
[2022-09-03] MEDS: amLODIPine BESYLATE 10 MG TABLET PO SCH (08:15)
[2022-09-03] MEDS: AMIODARONE HCL 200 MG TABLET PO SCH (08:15)
[2022-09-03] MEDS: ENOXAPARIN SODIUM 100 MG/ML SYRINGE SUBCUT SCH ×2 (08:15→20:53)
[2022-09-03] MEDS: CARVEDILOL 6.25 MG TABLET (COREG) PO SCH ×2 (08:16→20:54)
[2022-09-03] MEDS: PANTOPRAZOLE SODIUM 40 MG/VIAL (PROTONIX) IVP SCH (08:16)
[2022-09-03] MEDS: FERROUS SULFATE 325 MG TABLET.DR PO SCH ×2 (08:16→20:53)
[2022-09-03] MEDS: ISOSORBIDE MONONITRATE 30 MG TAB.ER.24H PO SCH (08:16)
[2022-09-03] MEDS: POTASSIUM CHLORIDE 20 MEQ TAB.PRT.SR PO SCH (08:17)
[2022-09-03] MEDS: FUROSEMIDE 20 MG/2 ML VIAL IVP SCH ×2 (08:17→20:53)
[2022-09-03] MEDS: ERAVACYCLINE DI-HYDROCHLORIDE 65 MG in NS 250 ML IV SCH ×2 (08:27→20:59)
--- NOTE | 2022-09-03 08:30 | NUR ---
RT NOTE: 0830 Patient returned to previous settings at this time. CPAP was tolerated for an hour. Vitals were stable. Addendum: 09/03/22 at 0840 by Miya Brown RT Amended: Links added.
[2022-09-03] MEDS ORDERED: POTASSIUM CHLORIDE 20 MEQ/PKT PACKET PO ONE (10:30)
[2022-09-03] MEDS: FLUCONAZOLE 100 mg/ NS 50 ML IV SCH (13:37)
[2022-09-03] MEDS: PROPOFOL DRIP 100 ML IV PRN ×2 (13:40→21:12)
[2022-09-04] VITALS (36 sets, daily range): BP systolic 94–144
[2022-09-04] MEDS: PROPOFOL DRIP 100 ML IV PRN ×2 (05:19→09:00)
[2022-09-04 06:38] LABS: BASOPHILS # (AUTO) 0.1 K/uL (0.0-0.2); BASOPHILS % (AUTO) 0.6 % (0.0-2.0); EOSINOPHILS # (AUTO) 0.2 K/uL (0.0-0.4); EOSINOPHILS % (AUTO) 2.1 % (0.0-4.0); HEMOGLOBIN 8.3 g/dL (12.0-16.0); LYMPHOCYTES # (AUTO) 2.4 K/uL (1.0-5.5); MEAN CORPUSCULAR HEMOGLOBIN 20 pg (27-31); MEAN CORPUSCULAR HGB CONC 31 % (32-36); MEAN CORPUSCULAR VOLUME 65 fL (79.0-98.0); MONOCYTES # (AUTO) 0.5 K/uL (0.0-1.0); MONOCYTES % (AUTO) 4.2 % (1.7-9.3); NEUTROPHILS # (AUTO) 8.2 K/uL (1.8-7.7); NEUTROPHILS % (AUTO) 72.1 % (40.0-70.0); PLATELET COUNT (AUTO) 417 K/uL (130-430); RED BLOOD CELL COUNT(AUTO) 4.14 MIL/uL (4.2-6.2); RED CELL DISTRIBUTION WIDTH 34.7 % (9.0-15.0); WHITE BLOOD COUNT (AUTO) 11.4 K/uL (4.8-10.8)
[2022-09-04 06:56] LABS: ANION GAP 6 (5-15); CALCIUM 8.6 mg/dL (8.4-11.0); CHLORIDE 111 mmol/L (98-107); GLUCOSE 140 mg/dL (70-99); UREA NITROGEN, BLOOD 21 mg/dL (8-21)
--- NOTE | 2022-09-04 07:15 | NUR ---
Opening Received report on pt. Pt awake, intubated to vent. Sedation turned off for spontaneous breathing trial. Pt indicated no pain or distress at this time. OGT with feeding. Boyer draining urine to gravity. Left arm noted with weeping. Bed locked in lowest position.
--- NOTE | 2022-09-04 07:52 | NUR ---
RT NOTES start cpap Coordinated with ABIGAIL Goldman, pt is not on sedation. Vent to cpap 5 ps 10. No adverse reactions noted. Will monitor pt.
[2022-09-04] MEDS: LEVOTHYROXINE SODIUM 0.1 MG TABLET PO SCH ×2 (08:20→08:35)
[2022-09-04] MEDS: ENOXAPARIN SODIUM 100 MG/ML SYRINGE SUBCUT SCH ×2 (08:20→20:13)
[2022-09-04] MEDS: FUROSEMIDE 20 MG/2 ML VIAL IVP SCH ×2 (08:22→20:13)
[2022-09-04] MEDS: PANTOPRAZOLE SODIUM 40 MG/VIAL (PROTONIX) IVP SCH (08:22)
[2022-09-04] MEDS: AMIODARONE HCL 200 MG TABLET PO SCH (08:23)
[2022-09-04] MEDS: CARVEDILOL 6.25 MG TABLET (COREG) PO SCH ×2 (08:23→20:12)
[2022-09-04] MEDS: ASPIRIN 81 MG TAB.CHEW PO SCH (08:23)
[2022-09-04] MEDS: POTASSIUM CHLORIDE 20 MEQ TAB.PRT.SR PO SCH (08:24)
[2022-09-04] MEDS: ISOSORBIDE MONONITRATE 30 MG TAB.ER.24H PO SCH (08:24)
[2022-09-04] MEDS: FERROUS SULFATE 325 MG TABLET.DR PO SCH ×2 (08:24→20:11)
[2022-09-04] MEDS: amLODIPine BESYLATE 10 MG TABLET PO SCH (08:25)
[2022-09-04] MEDS: ERAVACYCLINE DI-HYDROCHLORIDE 65 MG in NS 250 ML IV SCH ×2 (08:36→20:13)
--- NOTE | 2022-09-04 09:15 | NUR ---
RT NOTES end cpap Due to tachypnea and tachycardia, vent back to AC. Rn made aware.
[2022-09-04] MEDS: FLUCONAZOLE 100 mg/ NS 50 ML IV SCH (12:31)
--- NOTE | 2022-09-04 14:42 | NUR ---
Nutrition F/U RD reviewed pts current EMR including diet hx, physician notes, nursing notes, pertinent labs/meds/procedures, care trends and care activity. Short note d/t high workload Subjective Information: RD and healthcare administration intern attended ICU rounds this morning. Propofol infusing at 3.771mL/hr (provides 100 kcal), TF running at goal rate (50mL). RN said pt was having good output and was not sure of last BM. She mentioned that pt has a skin tear w/ weeping on her arm. Pt did not tolerate CPAP trials well today. Per EMR review: pt abd is soft, non-distended w/ active bowel sounds; minimal GRV (under 20mL documented). Pt is likely meeting nutritional needs at this time. Current Diet Order/Nutrition Support: Vital AF 1.2 at 50 ml/hr, Free Water Flush:per MD d/t CHF via OGT x 4 days % PO intake: NPO Last BM: x2 2/7 (7 days ago) Estimated Energy Expenditure (kcals/day) 1344 (PSU 2002 d/t vent/ICU status; Tmax: 37.6'C, Ve: 7.3) Estimated Protein Required (g/day) 94-125 (1.5-2 gm/kg CBW d/t sepsis) Estimated Fluid Required (l/day) Refer to MD ([facility]) Problem/Etiology/Signs/Symptoms * Suboptimal nutrient intakes R/T decreased appetite AEB pt report of decreased PO intake and documentation. *Ongoing * Inadequate EN support R/T metabolic demands AEB no current infusing EN support. *resolved Expected Outcomes/Goals EN tolerated at goal rate, EN provides >95% estimated nutritional needs, improvements in skin integrity, nutrition-related labs trending WNL, weight maintenance, BM q 1-3 days Dietitian Recommendations * Vital AF 1.2 at 50 ml/hr (goal rate) via OGT Provides(w/ joe): 1620 kcal/day, 95 gm protein/day, and 973 ml free water/day Meets: 121% of estimated caloric needs and 100% of lower end of estimated protein needs * Ordered: Joe BID * Physician to clarify free water flush d/t CHF * Consider bowel regimen as no documented BM in 7 days * If pt, extubated please contact RD to re-assess nutritional needs Follow up Moderate Risk: F/U within 3-5 days GS, MPH, RD
--- NOTE | 2022-09-04 14:45 | NUR ---
Dietitian Recommendations * Vital AF 1.2 at 50 ml/hr (goal rate) via OGT Provides(w/ joe): 1620 kcal/day, 95 gm protein/day, and 973 ml free water/day Meets: 121% of estimated caloric needs and 100% of lower end of estimated protein needs * Ordered: Joe BID * Physician to clarify free water flush d/t CHF * Consider bowel regimen as no documented BM in 7 days * If pt, extubated please contact RD to re-assess nutritional needs LISA, MPH, RD Please refer to Nutrition F/U for further details. Thanks!
--- NOTE | 2022-09-04 16:30 | NUR ---
Pt's at bedside, updated regarding plan of care and pt currently.
--- NOTE | 2022-09-04 17:00 | NUR ---
CHG bath and linen change done
--- NOTE | 2022-09-04 18:44 | NUR ---
Closing Pt sedated, no distress. No acute events during shift. Remains sedated with diprivan and precedex drips, remains on levophed drip. Boyer draining urine to gravity. OGT with feeding. Will endorse plan of care to RN.
--- NOTE | 2022-09-04 19:30 | NUR ---
PM ASSESSMENT REPORT RECEIVED FROM AM RN. PT RECEIVED IN BED WITH EYES CLOSED, SEDATED. VSS, NO S/S OF ACUTE DISTRESS NOTED. PT INTUBATED, VENT SETTINGS: AC 16, TV 450, FIO2 30%, PEEP 5. ARCELIA PICC INFUSING IV DRIPS PER ORDERS. RAC 20G PATENT AND INTACT. OGT IN PLACE RUNNING TF PER ORDERS. ORTA CATH DRAINING URINE TO GRAVITY. HOB ELEVATED, BED IN LOWEST POSITION, CALL LIGHT IN REACH. WILL CONTINUE TO MONITOR PT.
[2022-09-04] MEDS: NOREPINEPHRINE BITARTRATE 16 MG in D5W 234 ML IV PRN (20:41)
[2022-09-05] VITALS (36 sets, daily range): BP systolic 84–130
[2022-09-05] MEDS: NOREPINEPHRINE BITARTRATE 16 MG in D5W 234 ML IV PRN (00:53)
[2022-09-05] MEDS: PROPOFOL DRIP 100 ML IV PRN ×2 (00:53→09:15)
[2022-09-05] MEDS: LEVOTHYROXINE SODIUM 0.1 MG TABLET PO SCH (06:10)
[2022-09-05 06:39] LABS: BASOPHILS # (AUTO) 0.1 K/uL (0.0-0.2); BASOPHILS % (AUTO) 0.7 % (0.0-2.0); EOSINOPHILS # (AUTO) 0.1 K/uL (0.0-0.4); EOSINOPHILS % (AUTO) 0.8 % (0.0-4.0); HEMATOCRIT 26.9 % (36-48); HEMOGLOBIN 8.5 g/dL (12.0-16.0); LYMPHOCYTES # (AUTO) 2.5 K/uL (1.0-5.5); LYMPHOCYTES % (AUTO) 20.7 % (20.5-51.5); MEAN CORPUSCULAR HEMOGLOBIN 20 pg (27-31); MEAN CORPUSCULAR HGB CONC 32 % (32-36); MEAN CORPUSCULAR VOLUME 65 fL (79.0-98.0); MONOCYTES # (AUTO) 0.4 K/uL (0.0-1.0); MONOCYTES % (AUTO) 3.7 % (1.7-9.3); NEUTROPHILS # (AUTO) 9.1 K/uL (1.8-7.7); NEUTROPHILS % (AUTO) 74.1 % (40.0-70.0); PLATELET COUNT (AUTO) 460 K/uL (130-430); RED BLOOD CELL COUNT(AUTO) 4.14 MIL/uL (4.2-6.2); RED CELL DISTRIBUTION WIDTH 33.9 % (9.0-15.0); WHITE BLOOD COUNT (AUTO) 12.2 K/uL (4.8-10.8)
--- NOTE | 2022-09-05 07:30 | NUR ---
6980 recieved report from outgoing RN, seen patient resting on bed sedated and intubated, to ventilator assist control rate 16 peep 5, Tidal vol 450 and FIO2 30% patient is not on distress, with right upper arm PIC infusing levophed at 0.14 mcg/kg/min, precedex at 0.2 and propofol at 15 mcg/kg/min; patient is following simple commands. patient has feliciano catheter draining clear yellow urine.
[2022-09-05] MEDS: ISOSORBIDE MONONITRATE 30 MG TAB.ER.24H PO SCH (08:06)
[2022-09-05] MEDS: amLODIPine BESYLATE 10 MG TABLET PO SCH (08:07)
[2022-09-05] MEDS: PANTOPRAZOLE SODIUM 40 MG/VIAL (PROTONIX) IVP SCH (08:19)
[2022-09-05] MEDS: FUROSEMIDE 20 MG/2 ML VIAL IVP SCH ×2 (08:19→20:49)
[2022-09-05] MEDS: AMIODARONE HCL 200 MG TABLET PO SCH (08:20)
[2022-09-05] MEDS: ENOXAPARIN SODIUM 100 MG/ML SYRINGE SUBCUT SCH ×2 (08:20→20:55)
[2022-09-05] MEDS: FERROUS SULFATE 325 MG TABLET.DR PO SCH ×2 (08:20→20:55)
[2022-09-05] MEDS: POTASSIUM CHLORIDE 20 MEQ TAB.PRT.SR PO SCH (08:20)
[2022-09-05] MEDS: CARVEDILOL 6.25 MG TABLET (COREG) PO SCH ×2 (08:20→20:51)
[2022-09-05] MEDS: ASPIRIN 81 MG TAB.CHEW PO SCH (08:20)
--- NOTE | 2022-09-05 08:30 | NUR ---
RT NOTES Confirmed with RN, CPAP trials today. Rn was told to shoot for 90 minutes on CPAP by Dr Gonsales.
[2022-09-05 08:43] LABS: ANION GAP 5 (5-15); CALCIUM 8.9 mg/dL (8.4-11.0); CHLORIDE 114 mmol/L (98-107); CREATININE 0.32 mg/dL (0.55-1.30); GLUCOSE 135 mg/dL (70-99); UREA NITROGEN, BLOOD 31 mg/dL (8-21)
[2022-09-05] MEDS: ERAVACYCLINE DI-HYDROCHLORIDE 65 MG in NS 250 ML IV SCH (09:14)
--- NOTE | 2022-09-05 11:24 | NUR ---
RT NOTES Coordinated with RN, vent to cpap 5 ps 10. Pt is awake, educated on weaning trials. no immediate adverse reactions noted. will monitor pt. @1144 pt cont to tolerate cpap, no distress noted. H.R 59. RR 19. Sat 99%. Exh CO2 38. will cont. to monitor pt
[2022-09-05] MEDS: FLUCONAZOLE 100 mg/ NS 50 ML IV SCH (11:34)
[2022-09-05] MEDS: POTASSIUM CHLORIDE 20 MEQ TAB.PRT.SR PO PRN (11:35)
--- NOTE | 2022-09-05 11:43 | NUR ---
RT NOTES Rn clarified that Dr Gonsales wants CPAP trials >90 minutes today. Pt. cont. to tolerate, no signs of distress. H.R 67. R.R 21 Sat 98%. exh CO2 36 Addendum: 09/05/22 at 1350 by Sonali Shetty RT correct time for this note is 1343
--- NOTE | 2022-09-05 14:50 | NUR ---
RT NOTES end cpap Pt tolerated about 3.5 hours CPAP. No signs of distress, nor hypoventilation per spon. Vt and exh. CO2. Vent back to AC.
[2022-09-05] MEDS: CEFEPIME 2 GM in D5W 100 ML IV SCH (20:49)
[2022-09-05] MEDS: IPRATROPIUM/ALBUTEROL SULFATE 3 ML AMPUL.NEB (DUONEB) INH PRN (23:18)
[2022-09-06] VITALS (27 sets, daily range): BP systolic 87–127
[2022-09-06] MEDS: LEVOTHYROXINE SODIUM 0.1 MG TABLET PO SCH (06:54)
--- NOTE | 2022-09-06 07:00 | NUR ---
patient received on vent;follows commands; sinus rythm on tele;levophed and precedex infusing per order; OGT with Vital AF at 50ml/hr with no residuals noted.feliciano to dd with clear jing urine noted;no distress noted
[2022-09-06 07:26] LABS: BASOPHILS # (AUTO) 0.1 K/uL (0.0-0.2); EOSINOPHILS # (AUTO) 0.1 K/uL (0.0-0.4); EOSINOPHILS % (AUTO) 0.5 % (0.0-4.0); HEMOGLOBIN 9.2 g/dL (12.0-16.0); LYMPHOCYTES # (AUTO) 2.9 K/uL (1.0-5.5); LYMPHOCYTES % (AUTO) 22.4 % (20.5-51.5); MEAN CORPUSCULAR HEMOGLOBIN 21 pg (27-31); MEAN CORPUSCULAR HGB CONC 32 % (32-36); MEAN CORPUSCULAR VOLUME 66 fL (79.0-98.0); MONOCYTES # (AUTO) 0.5 K/uL (0.0-1.0); MONOCYTES % (AUTO) 3.5 % (1.7-9.3); NEUTROPHILS # (AUTO) 9.6 K/uL (1.8-7.7); PLATELET COUNT (AUTO) 462 K/uL (130-430); RED BLOOD CELL COUNT(AUTO) 4.42 MIL/uL (4.2-6.2); RED CELL DISTRIBUTION WIDTH 36.3 % (9.0-15.0); WHITE BLOOD COUNT (AUTO) 13.2 K/uL (4.8-10.8)
[2022-09-06 07:40] LABS: ALANINE AMINOTRANSFERASE 29 U/L (12-78); ALBUMIN 1.8 g/dL (3.4-4.8); ANION GAP 6 (5-15); ASPARTATE AMINOTRANSFERASE 47 U/L (10-37); CALCIUM 9.2 mg/dL (8.4-11.0); CHLORIDE 114 mmol/L (98-107); CREATININE 0.51 mg/dL (0.55-1.30); GLUCOSE 124 mg/dL (70-99); TOTAL BILIRUBIN 0.5 mg/dL (0.0-1.0); UREA NITROGEN, BLOOD 30 mg/dL (8-21)
--- NOTE | 2022-09-06 07:54 | NUR ---
rt notes 0754 Placed pt on CPAP trial (CPAP 5, PS10). Pt tolerating well. Encouraged pt to do nice & slow deep breathing. Pt pulling adequate volume >350ml. rr 30. Pt satuating 99. CO2=39. will cont to monitor pt.
[2022-09-06 07:57] LABS: NEUTROPHILS % (AUTO) 72.6 % (40.0-70.0)
[2022-09-06] MEDS: POTASSIUM CHLORIDE 20 MEQ TAB.PRT.SR PO SCH (08:42)
[2022-09-06] MEDS: AMIODARONE HCL 200 MG TABLET PO SCH (08:42)
[2022-09-06] MEDS: FERROUS SULFATE 325 MG TABLET.DR PO SCH ×2 (08:42→23:23)
[2022-09-06] MEDS: ASPIRIN 81 MG TAB.CHEW PO SCH (08:42)
[2022-09-06] MEDS: ISOSORBIDE MONONITRATE 30 MG TAB.ER.24H PO SCH (08:43)
[2022-09-06] MEDS: PANTOPRAZOLE SODIUM 40 MG/VIAL (PROTONIX) IVP SCH (08:44)
[2022-09-06] MEDS: ENOXAPARIN SODIUM 100 MG/ML SYRINGE SUBCUT SCH ×2 (08:44→23:23)
[2022-09-06] MEDS: CARVEDILOL 6.25 MG TABLET (COREG) PO SCH ×2 (08:44→23:23)
[2022-09-06] MEDS: FUROSEMIDE 20 MG/2 ML VIAL IVP SCH (09:00)
[2022-09-06] MEDS: amLODIPine BESYLATE 10 MG TABLET PO SCH (09:00)
--- NOTE | 2022-09-06 09:00 | NUR ---
Precedex d/c'd per order; no distress noted
[2022-09-06] MEDS: CEFEPIME 2 GM in D5W 100 ML IV SCH ×2 (09:58→23:22)
--- NOTE | 2022-09-06 11:10 | NUR ---
rt notes 1110 Pt back to AC mode, pt lasted on CPAP for 3 hours, pt did well. will cont to monitor pt.
[2022-09-06] MEDS: NOREPINEPHRINE BITARTRATE 16 MG in D5W 234 ML IV PRN (11:32)
[2022-09-06] MEDS: FLUCONAZOLE 100 mg/ NS 50 ML IV SCH (11:34)
--- NOTE | 2022-09-06 13:05 | NUR ---
rt notes 1305 RSBI 66, MIP -22, VC 1600ML. NOTIFY MD MARTINO FOR WEANING PARAMETERS RESULTS.
--- NOTE | 2022-09-06 14:05 | NUR ---
patient extubated per order to 40% VM with sats >93%; no distress noted
--- NOTE | 2022-09-06 14:30 | NUR ---
rt notes 1405 MD Gonsales ordered extubation for pt. Pt got extubated placed on 3LNC with bubble humidification. Pt saturating 91-93% but fluctuating due to pt still has OG tube on. Pt trying to cough out the OG tube. RR 24-28. Sxn orally. 1430 Pt placed to 10L Cool Aerosol. Pt agreed to be orally suction. Pt saturating 94-97%. Encouraged pt to do deep breathing, will titrate o2 as needed. no resp distress noted. ABIGAIL Garzon aware.
[2022-09-06] MEDS ORDERED: LORazepam 2 MG/ML VIAL IVP PRN (16:00)
--- NOTE | 2022-09-06 18:55 | NUR ---
patient comfortable in bed; levophed was discontinued at 1600; vss
[2022-09-06] MEDS: IPRATROPIUM/ALBUTEROL SULFATE 3 ML AMPUL.NEB (DUONEB) INH PRN (20:01)
[2022-09-06] MEDS ORDERED: FAMOTIDINE PF 20 MG/2 ML VIAL ONE (21:31)
--- NOTE | 2022-09-06 22:56 | NUR ---
RT NOTES. WALKED INTO PT'S ROOM AND SHE WAS SATTING MID 80S. INCREASED FIO2 AND FLOW RATE TO 10L 98% ON COOL MIST. BREATH SOUNDS RHONCHI. NTS PT AND GOT OUT MODERATE AMOUNT OF THIN CLEAR SECRETIONS. GAVE PRN TX AFTER. WAS ABLE TO TITRATE DOWN COOL MIST TO 8L 35% AND SPO2 IS MID 90S. PT TOLERATING WELL. NO RESP. DISTRESS NOTED. WILL CONTINUE TO MONITOR.
[2022-09-07] VITALS (9 sets, daily range): BP systolic 101–125
[2022-09-07] MEDS: LEVOTHYROXINE SODIUM 0.1 MG TABLET PO SCH (06:07)
[2022-09-07 06:44] LABS: BASOPHILS # (AUTO) 0.1 K/uL (0.0-0.2); BASOPHILS % (AUTO) 0.8 % (0.0-2.0); EOSINOPHILS # (AUTO) 0.1 K/uL (0.0-0.4); EOSINOPHILS % (AUTO) 0.7 % (0.0-4.0); HEMATOCRIT 27.1 % (36-48); HEMOGLOBIN 8.4 g/dL (12.0-16.0); LYMPHOCYTES # (AUTO) 1.9 K/uL (1.0-5.5); LYMPHOCYTES % (AUTO) 16.9 % (20.5-51.5); MEAN CORPUSCULAR HEMOGLOBIN 21 pg (27-31); MEAN CORPUSCULAR HGB CONC 31 % (32-36); MEAN CORPUSCULAR VOLUME 66 fL (79.0-98.0); MONOCYTES # (AUTO) 0.5 K/uL (0.0-1.0); MONOCYTES % (AUTO) 4.3 % (1.7-9.3); NEUTROPHILS # (AUTO) 8.6 K/uL (1.8-7.7); NEUTROPHILS % (AUTO) 77.3 % (40.0-70.0); PLATELET COUNT (AUTO) 530 K/uL (130-430); RED BLOOD CELL COUNT(AUTO) 4.13 MIL/uL (4.2-6.2); RED CELL DISTRIBUTION WIDTH 35.2 % (9.0-15.0); WHITE BLOOD COUNT (AUTO) 11.1 K/uL (4.8-10.8)
[2022-09-07 07:28] LABS: ANION GAP 5 (5-15); CALCIUM 9.1 mg/dL (8.4-11.0); CHLORIDE 119 mmol/L (98-107); CREATININE 0.41 mg/dL (0.55-1.30); GLUCOSE 146 mg/dL (70-99); UREA NITROGEN, BLOOD 30 mg/dL (8-21)
--- NOTE | 2022-09-07 07:49 | NUR ---
rt notes 0749 Titrated o2 and Placed pt to 4LNC. Pt saturating 97%. 0940 Titrated o2 to 3LNC, suctioned orally. (small/thick/yellow). Pt saturating 96%.
[2022-09-07] MEDS ORDERED: D5NS 1,000 ML IV SCH (08:30)
[2022-09-07] MEDS: CEFEPIME 2 GM in D5W 100 ML IV SCH ×2 (08:33→21:09)
[2022-09-07] MEDS: ENOXAPARIN SODIUM 100 MG/ML SYRINGE SUBCUT SCH ×2 (08:33→21:09)
[2022-09-07] MEDS: PANTOPRAZOLE SODIUM 40 MG/VIAL (PROTONIX) IVP SCH (08:33)
[2022-09-07] MEDS ORDERED: D5W 1,000 ML IV SCH (08:45)
[2022-09-07] MEDS: FERROUS SULFATE 325 MG TABLET.DR PO SCH ×2 (09:00→21:00)
[2022-09-07] MEDS: ISOSORBIDE MONONITRATE 30 MG TAB.ER.24H PO SCH (09:00)
[2022-09-07] MEDS: AMIODARONE HCL 200 MG TABLET PO SCH (09:00)
[2022-09-07] MEDS: POTASSIUM CHLORIDE 20 MEQ TAB.PRT.SR PO SCH (09:00)
[2022-09-07] MEDS: amLODIPine BESYLATE 10 MG TABLET PO SCH (09:00)
[2022-09-07] MEDS: ASPIRIN 81 MG TAB.CHEW PO SCH (09:00)
[2022-09-07] MEDS: CARVEDILOL 6.25 MG TABLET (COREG) PO SCH ×2 (09:00→21:00)
[2022-09-07] MEDS: FLUCONAZOLE 100 mg/ NS 50 ML IV SCH (12:02)
[2022-09-07] MEDS: D5W 1,000 ML IV SCH (12:15)
[2022-09-07] MEDS ORDERED: POTASSIUM CHLORIDE 30 MEQ in D5W 1,000 ML IV SCH (12:15)
[2022-09-07] MEDS: KCL 10 mEq in 50 mL (PREMIX) 50 ML IV SCH ×3 (13:06→15:19)
--- NOTE | 2022-09-07 18:30 | NUR ---
Patient is awake and alert, slow to respond verbally, tracks and engages. Patient denies pain or discomfort at present. SR noted on telemetry, VSS on 2LNC. present at bedside. Patient is transferred to room 110A via bed with telemetry monitoring, accompanied by 2 ICU RNs. Patient tolerated transfer well, no distress. Report called to Song HAYES.
--- NOTE | 2022-09-07 19:30 | NUR ---
PM ASSESSMENT; -Patient is a/ox1, resting in bed comfortably. Pt is unable to speak clearly d/t extubated recently from ICU. ARCELIA PICC both ports patent, good blood returns noted. IVF infusing well. Boyer cath w/ gravity drains yellow urine output. Discussed & updated POC with spouse at bedside verbalized understanding. HOB > 30 degree entire time. Pt is still waiting for swallow evaluation. Bed alarmed, side rails x3, call light w/in reach. Cont to monitor pt.
--- NOTE | 2022-09-08 00:15 | NUR ---
ROUNDS; -Pt is asleep. NO s/s any acute distress noted. IVF infusing well, no s/s any infiltration noted. Boyer cath w/ gravity drains yellow urine output. Pt is on 2L nc oxy, k6ifj=77%. Bed alarmed, side rails x3, call light w/in reach. Cont to monitor pt.
[2022-09-08 02:33] VITALS: BP_SYST 121
--- NOTE | 2022-09-08 04:15 | NUR ---
ROUNDS; -Pt is asleep in bed comfortably. NO s/s any acute distress noted. IVF infusing well, no s/s any infiltration noted. Boyer cath w/ gravity drains yellow urine output. Pt is on 2L nc oxy continuously. Bed alarmed, side rails x3, call light w/in reach. Cont to monitor pt.
[2022-09-08] MEDS: LEVOTHYROXINE SODIUM 0.1 MG TABLET PO SCH (05:49)
--- NOTE | 2022-09-08 06:34 | NUR ---
CLOSING NOTES; -Pt is resting in bed comfortably. No s/s any acute distress noted. ARCELIA PICC both ports patent. IVF infusing well. Boyer cath w/ gravity drains yellow urine output. HOB > 30 degree entire time. Pt is still waiting for swallow evaluation. Bed alarmed, side rails x3, call light w/in reach. Pt's condition stable. Will endorse to next nurse to cont care.
[2022-09-08 07:14] LABS: HEMATOCRIT 27.8 % (36-48); HEMOGLOBIN 8.3 g/dL (12.0-16.0); MEAN CORPUSCULAR HEMOGLOBIN 21 pg (27-31); MEAN CORPUSCULAR HGB CONC 30 % (32-36); MEAN CORPUSCULAR VOLUME 69 fL (79.0-98.0); PLATELET COUNT (AUTO) 658 K/uL (130-430); RED BLOOD CELL COUNT(AUTO) 4.02 MIL/uL (4.2-6.2); RED CELL DISTRIBUTION WIDTH 35.5 % (9.0-15.0); WHITE BLOOD COUNT (AUTO) 10.3 K/uL (4.8-10.8)
--- NOTE | 2022-09-08 08:00 | NUR ---
MORNING ROUNDS: BEDSIDE REPORT RECEIVED FROM NIGHT NURSE JORDYN.IV FLUIDS RUNNING AT RIGHT UPPER ARM,PICC LINE DRY AND INTACT. O2 2L/NC,GOOD SATURATION.ORTA DRAINING TO АЛЕКСАНДР URINE IN MODERATION. CALL LIGHT WITH IN REACH. BED LOCKED AT LOWEST POSITION. NOT IN DISTRESS THIS TIME.
[2022-09-08] MEDS: POTASSIUM CHLORIDE 20 MEQ TAB.PRT.SR PO SCH (09:00)
[2022-09-08] MEDS: amLODIPine BESYLATE 10 MG TABLET PO SCH (09:00)
[2022-09-08] MEDS: AMIODARONE HCL 200 MG TABLET PO SCH (09:00)
[2022-09-08] MEDS: FERROUS SULFATE 325 MG TABLET.DR PO SCH ×2 (09:00→21:00)
[2022-09-08] MEDS: ASPIRIN 81 MG TAB.CHEW PO SCH (09:00)
[2022-09-08] MEDS: ISOSORBIDE MONONITRATE 30 MG TAB.ER.24H PO SCH (09:00)
[2022-09-08] MEDS: CARVEDILOL 6.25 MG TABLET (COREG) PO SCH ×2 (09:00→21:00)
[2022-09-08] MEDS: CEFEPIME 2 GM in D5W 100 ML IV SCH ×2 (10:12→21:19)
[2022-09-08] MEDS: PANTOPRAZOLE SODIUM 40 MG/VIAL (PROTONIX) IVP SCH (10:12)
[2022-09-08] MEDS: ENOXAPARIN SODIUM 100 MG/ML SYRINGE SUBCUT SCH ×2 (10:13→21:19)
[2022-09-08 11:03] LABS: ALANINE AMINOTRANSFERASE 28 U/L (12-78); ALBUMIN 1.7 g/dL (3.4-4.8); ANION GAP 8 (5-15); ASPARTATE AMINOTRANSFERASE 28 U/L (10-37); CALCIUM 9.1 mg/dL (8.4-11.0); CREATININE 0.42 mg/dL (0.55-1.30); GLUCOSE 112 mg/dL (70-99); TOTAL BILIRUBIN 0.2 mg/dL (0.0-1.0); UREA NITROGEN, BLOOD 22 mg/dL (8-21)
[2022-09-08 11:14] LABS: CHLORIDE 121 mmol/L (98-107)
--- NOTE | 2022-09-08 11:22 | NUR ---
PAGED: CALLED DR BARNES FOR CRITICAL LABS AND LEST MESSAGE THRU HIS PHONE.
[2022-09-08 11:39] VITALS: BP_SYST 135
--- NOTE | 2022-09-08 12:00 | NUR ---
BLOOD SUGAR: BLOOD SUGAR TAKEN.NO INSULIN COVERAGE PER SLIDING SCALE.
[2022-09-08] MEDS: FLUCONAZOLE 100 mg/ NS 50 ML IV SCH (12:28)
--- NOTE | 2022-09-08 13:37 | NUR ---
Nutrition F/U RD reviewed pts current EMR including diet hx, physician notes, nursing notes, pertinent labs/meds/procedures, care trends and care activity. Subjective Information: 09/06: Pt extubated RD rounded to pt room and tried to s/w pt but she was not able to communicate much. RD s/w RN about pt condition. RN said that pt needs swallow evalutation bc she is NPO currently d/t no OGT since pt was extubated. RD said that she could recommend but not order it. Per EMR review: pt abd is soft, non-distended w/ active bowel sounds; minimal GRV (under 20mL documented since 09/03); noted that Joe is being documented; Avinash: 11 w/ scab on nose, redness/bruising on back/arms/heels/R hand. Pt is likely meeting nutritional needs at this time. Current Diet Order/Nutrition Support: Vital AF 1.2 at 50 ml/hr, Free Water Flush:per MD d/t CHF via OGT x 8 days & Joe BID x 4 days % PO intake: NPO Last BM: x2 08/28 (11 days ago) Estimated Energy Expenditure (kcals/day) 1478-8173 kcal (25-30 kcal/kg CBW d/t sepsis) Estimated Protein Required (g/day) 94-125 (1.5-2 gm/kg CBW d/t sepsis) Estimated Fluid Required (l/day) Refer to MD (CHF) Problem/Etiology/Signs/Symptoms * Suboptimal nutrient intakes R/T decreased appetite AEB pt report of decreased PO intake and documentation. *Ongoing * Inadequate EN support R/T metabolic demands AEB no current infusing EN support. *resolved Expected Outcomes/Goals Monitor advancement of diet, appetite, and PO intakes w/ goal of pt meeting >75% of estimated nutritional needs, labs trending WNL, normal GI function, and skin integrity/wt maintenance Dietitian Recommendations * Advancement of diet per PROMOTIONAL ADVERTISING ASSISTANT * Consider Joe BID once swallow eval completed * Consider bowel regimen as no documented BM in 11 days * Please update diet order to reflect current diet Follow up High Risk: F/U within 2-3 days GS, MPH, RD
--- NOTE | 2022-09-08 13:39 | NUR ---
Dietitian Recommendations * Advancement of diet per DEADENER * Consider Joe BID once swallow eval completed * Consider bowel regimen as no documented BM in 11 days * Please update diet order to reflect current diet GS, MPH, RD Please refer to Nutrition F/U for further details. Thanks! Addendum: 09/08/22 at [address] NEW Dietitian Recommendations * Advancement of diet per DEADENER * Rec swallow eval * Consider Joe BID once swallow eval completed * Consider bowel regimen as no documented BM in 11 days * Please update diet order to reflect current diet
[2022-09-08 14:27] LABS: BASOPHILS % (MANUAL) 0 % (0-2); EOSINOPHILS % (MANUAL) 1 % (0-7); LYMPHOCYTES % (MANUAL) 26 % (20-46); MONOCYTES % (MANUAL) 7 % (0-11)
--- NOTE | 2022-09-08 14:30 | NUR ---
IV ANTIBIOTICS: DUE IV ANTIBIOTICS GIVEN ORDERED.NO PROBLEM.
[2022-09-08 15:35] VITALS: BP_SYST 121
--- NOTE | 2022-09-08 17:30 | NUR ---
F/U SPEECH THERAPY: FOLLOW UP MADE TO [facility]#[phone].WAITING FOR RESPONSE.
[2022-09-08] MEDS: D5W 1,000 ML IV SCH (17:39)
[2022-09-08 18:00] VITALS: BP_SYST 121
--- NOTE | 2022-09-08 18:19 | NUR ---
EVENING ROUNDS: PATIENT MAINTAINED O2 2L/NC,GOOD SATURATION. IV FLUIDS RUNNING AT RIGHT UPPER ARM PICC LINE,DRY AND INTACT. ORTA DRAINING TO YELLOW URINE IN LARGE AMOUNT. SAFETY MEASURES RENDERED. CONTINUE TO MONITOR.
[2022-09-08 19:32] VITALS: BP_SYST 117
--- NOTE | 2022-09-08 19:32 | NUR ---
PM ASSESSMENT; -Patient is a/ox1, resting in bed comfortably. ARCELIA PICC both ports patent, good blood returns noted. IVF infusing well. Boyer cath w/ gravity drains yellow urine output. Discussed & updated POC with spouse at bedside verbalized understanding. HOB > 30 degree entire time. Pt is still waiting for swallow evaluation. Bed alarmed, side rails x3, call light w/in reach. Cont to monitor pt.
--- NOTE | 2022-09-08 22:25 | NUR ---
ROUNDS; -Pt is resting in bed comfortably. NO s/s any acute distress noted. IVF infusing well, no s/s any infiltration noted. Boyer cath w/ gravity drains yellow urine output. Provided sponge bath & perineal care, now pt is cleaned and dry. Spouse is at bedside afterward. Pt is on 2L nc oxy, y1gto=09-87%. Bed alarmed, side rails x3, call light w/in reach. Cont to monitor pt.
[2022-09-08 23:58] VITALS: BP_SYST 149
[2022-09-09 00:11] VITALS: BP_SYST 149
[2022-09-09] MEDS: LEVOTHYROXINE SODIUM 0.1 MG TABLET PO SCH (01:52)
--- NOTE | 2022-09-09 04:21 | NUR ---
ROUNDS; -Pt is asleep in bed comfortably. NO s/s any acute distress noted. IVF infusing well, no s/s any infiltration noted. Boyer cath w/ gravity drains yellow urine output. Pt's condition stable. Pt is on 2L nc oxy continuously. Bed alarmed, side rails x3, call light w/in reach. Cont to monitor pt.
--- NOTE | 2022-09-09 06:31 | NUR ---
CLOSING NOTES; -Pt is resting in bed comfortably. No s/s any acute distress noted. ARCELIA PICC both ports patent. IVF infusing well. Boyer cath w/ gravity drains yellow urine output. HOB > 30 degree entire time. Pt is NPO, still waiting for swallow eval. Bed alarmed, side rails x3, call light w/in reach. Pt's condition stable. Will endorse to next nurse to cont care.
--- NOTE | 2022-09-09 07:25 | NUR ---
NEPHRO ROUNDS: IV FLUID RATE INCREASED TO 100CC/H ORDERED BY DR CARTER.
--- NOTE | 2022-09-09 07:30 | NUR ---
MORNING ROUNDS: UPDATES OF PATIENT RECEIVED FROM NIGHT NURSE POWER.PATIENT SLEEPING ON THE BED.IV FLUIDS RUNNING AT RIGHT UPPER ARM,INTACT. O2 2L/NC,GOOD SATURATION. ORTA DRAINING TO АЛЕКСАНДР URINE. BED LOCKED AT LOWEST POSITION. CONDITION GUARDED.
[2022-09-09 08:00] VITALS: BP_SYST 136
--- NOTE | 2022-09-09 08:30 | NUR ---
MD ROUNDS: INFORMED DR Najma BARNES PT'S WANTS SOME UPDATES REGARDING PATIENT'S CONDITION AND PHONE NUMBER GIVEN WELL.
[2022-09-09] MEDS: CARVEDILOL 6.25 MG TABLET (COREG) PO SCH ×2 (09:00→20:09)
[2022-09-09] MEDS: ASPIRIN 81 MG TAB.CHEW PO SCH (09:00)
[2022-09-09] MEDS: AMIODARONE HCL 200 MG TABLET PO SCH (09:00)
[2022-09-09] MEDS: ISOSORBIDE MONONITRATE 30 MG TAB.ER.24H PO SCH (09:00)
[2022-09-09] MEDS: amLODIPine BESYLATE 10 MG TABLET PO SCH (09:00)
[2022-09-09] MEDS: FERROUS SULFATE 325 MG TABLET.DR PO SCH ×2 (09:00→20:09)
[2022-09-09] MEDS: POTASSIUM CHLORIDE 20 MEQ TAB.PRT.SR PO SCH (09:00)
[2022-09-09] MEDS: ENOXAPARIN SODIUM 100 MG/ML SYRINGE SUBCUT SCH ×2 (09:39→20:15)
[2022-09-09] MEDS: CEFEPIME 2 GM in D5W 100 ML IV SCH ×2 (09:40→20:15)
[2022-09-09] MEDS: PANTOPRAZOLE SODIUM 40 MG/VIAL (PROTONIX) IVP SCH (09:41)
[2022-09-09 10:18] LABS: ANION GAP 5 (5-15); CALCIUM 9.5 mg/dL (8.4-11.0); CHLORIDE 119 mmol/L (98-107); GLUCOSE 127 mg/dL (70-99); UREA NITROGEN, BLOOD 18 mg/dL (8-21)
[2022-09-09 11:57] VITALS: BP_SYST 131
[2022-09-09] MEDS: FLUCONAZOLE 100 mg/ NS 50 ML IV SCH (12:10)
[2022-09-09] MEDS: D5W 1,000 ML IV SCH ×2 (12:14→23:23)
--- NOTE | 2022-09-09 14:00 | NUR ---
PT WAS SEEN FOR DYSPHAGIA. PT WAS POCKETING FOR TRIALS OF APPLE SAUCE AND NEEDED VERBAL AND TACTILE CUE TO SWALLOW TRIALS OF APPLE SAUCE. RECOMMENDATION NOTHING BY MOUTH
--- NOTE | 2022-09-09 15:33 | NUR ---
FAMILY UPDATE: SPOKE WITH PT'S AT THE BEDSIDE.SPEECH THERAPIST DID SWALLOW EVALUATION AND SAID THAT PATIENT CANNOT FOLLOW INSTRUCTIONS DURING TRIAL MEAL. FAMILY WAS AWARE AND RN WILL LET MD AWARE.
--- NOTE | 2022-09-09 15:40 | NUR ---
EEG: EEG DONE AT THE BEDSIDE ORDERED.
[2022-09-09 17:21] VITALS: BP_SYST 115
--- NOTE | 2022-09-09 18:53 | NUR ---
EVENING ROUNDS: AT THE BEDSIDE.PATIENT AWAKE THIS TIME. PICC LINE DRY AND INTACT. STILL ON O2 2L/NC.GOOD SATURATION.ORTA IN PLACED. CONTINUE TO MONITOR.
[2022-09-09 20:21] VITALS: BP_SYST 121
--- NOTE | 2022-09-09 20:21 | NUR ---
PM ASSESSMENT; -Patient is a/ox1, resting in bed comfortably. ARCELIA PICC both ports patent, good blood returns noted. IVF infusing well. Boyer cath w/ gravity drains yellow urine output. Discussed & updated POC with spouse at bedside verbalized understanding. HOB > 30 degree entire time. Pt failed swallow eval, NPO recommended by speech therapist. Bed alarmed, side rails x3, call light w/in reach. Cont to monitor pt.
--- NOTE | 2022-09-09 20:49 | NUR ---
ROUNDS; -Pt is resting in bed comfortably. NO s/s any acute distress noted. IVF infusing well, no s/s any infiltration noted. Boyer cath w/ gravity drains yellow urine output. Provided sponge bath & perineal care, now pt is cleaned and dry. Spouse is at bedside afterward. Pt is on 2L nc oxy, x2thv=85-68%. Bed alarmed, side rails x3, call light w/in reach. Cont to monitor pt.
--- NOTE | 2022-09-10 00:18 | NUR ---
ROUNDS; -Pt is resting in bed comfortably. NO s/s any acute distress noted. IVF infusing well, no s/s any infiltration noted. Pt is on 2L nc oxy continuously. Bed alarmed, side rails x3, call light w/in reach. Cont to monitor pt.
[2022-09-10 00:19] VITALS: BP_SYST 132
[2022-09-10] MEDS: LEVOTHYROXINE SODIUM 0.1 MG TABLET PO SCH (03:32)
--- NOTE | 2022-09-10 06:33 | NUR ---
CLOSING NOTES; -Pt is resting in bed comfortably. No s/s any acute distress noted. ARCELIA PICC both ports patent. IVF infusing well. Boyer cath w/ gravity drains yellow urine output. HOB > 30 degree entire time. Bed alarmed, side rails x3, call light w/in reach. Pt's condition stable. Will endorse to next nurse to cont care.
[2022-09-10 07:02] LABS: HEMATOCRIT 31.2 % (36-48); HEMOGLOBIN 9.3 g/dL (12.0-16.0); MEAN CORPUSCULAR HEMOGLOBIN 21 pg (27-31); MEAN CORPUSCULAR HGB CONC 30 % (32-36); MEAN CORPUSCULAR VOLUME 69 fL (79.0-98.0); PLATELET COUNT (AUTO) 702 K/uL (130-430); RED BLOOD CELL COUNT(AUTO) 4.51 MIL/uL (4.2-6.2)
[2022-09-10 07:54] LABS: ANION GAP 4 (5-15); CALCIUM 9.3 mg/dL (8.4-11.0); CHLORIDE 114 mmol/L (98-107); CREATININE 0.68 mg/dL (0.55-1.30); GLUCOSE 129 mg/dL (70-99); UREA NITROGEN, BLOOD 14 mg/dL (8-21)
[2022-09-10 08:06] VITALS: BP_SYST 142
[2022-09-10] MEDS: IPRATROPIUM/ALBUTEROL SULFATE 3 ML AMPUL.NEB (DUONEB) INH PRN (08:45)
--- NOTE | 2022-09-10 08:48 | NUR ---
K+ 2.7, Dr. Potter made aware and will order K+ IVPB. Patient's stable with no c/o any chest pain or discomfort. is at the bedside.
[2022-09-10] MEDS: POTASSIUM CHLORIDE 20 MEQ TAB.PRT.SR PO SCH (09:00)
[2022-09-10] MEDS: AMIODARONE HCL 200 MG TABLET PO SCH (09:00)
[2022-09-10] MEDS: FERROUS SULFATE 325 MG TABLET.DR PO SCH ×2 (09:00→20:16)
[2022-09-10] MEDS: amLODIPine BESYLATE 10 MG TABLET PO SCH (09:00)
[2022-09-10] MEDS: ISOSORBIDE MONONITRATE 30 MG TAB.ER.24H PO SCH (09:00)
[2022-09-10] MEDS: ASPIRIN 81 MG TAB.CHEW PO SCH (09:00)
[2022-09-10] MEDS: CARVEDILOL 6.25 MG TABLET (COREG) PO SCH ×2 (09:00→20:16)
[2022-09-10] MEDS: D5W 1,000 ML IV SCH ×2 (09:50→18:05)
[2022-09-10] MEDS: CEFEPIME 2 GM in D5W 100 ML IV SCH ×2 (09:51→20:21)
[2022-09-10] MEDS: PANTOPRAZOLE SODIUM 40 MG/VIAL (PROTONIX) IVP SCH (09:51)
[2022-09-10 10:00] VITALS: BP_SYST 116
[2022-09-10] MEDS: ENOXAPARIN SODIUM 100 MG/ML SYRINGE SUBCUT SCH ×2 (10:06→20:22)
--- NOTE | 2022-09-10 10:37 | NUR ---
CALLED PHARMACY ABOUT K+ RIDER, SPOKE TO SELINA. MED WILL BE HERE SOON POSSIBLE.
--- NOTE | 2022-09-10 10:38 | NUR ---
SPOKE TO Neal FIGUEROA+ RIDER WILL BE STEPHANIE.
[2022-09-10] MEDS: POTASSIUM CHLORIDE 40 MEQ in D5W 250 ML IV SCH ×2 (11:04→14:44)
[2022-09-10] MEDS: FLUCONAZOLE 100 mg/ NS 50 ML IV SCH (12:10)
[2022-09-10 13:20] LABS: BASOPHILS % (MANUAL) 0 % (0-2); EOSINOPHILS % (MANUAL) 1 % (0-7); LYMPHOCYTES % (MANUAL) 24 % (20-46); MONOCYTES % (MANUAL) 8 % (0-11)
[2022-09-10 15:45] VITALS: BP_SYST 140
--- NOTE | 2022-09-10 15:51 | NUR ---
Spoke with patient son Golden [phone]. Golden advised that pt Eric will be arriving at [facility] w/in 5-10 minutes. CM to go to patient room to discuss DCP to SNF for PT and OT
--- NOTE | 2022-09-10 16:27 | NUR ---
spoke with pt Eric Sean at bedside. updated on plan of care. SNF for PT and OT. states his preference [facility] as [facility] is the closest to his residence. referral packet faxed to [facility]#[phone].
--- NOTE | 2022-09-10 19:15 | NUR ---
OPENING NOTE REPORT RECEIVED FROM DAYSHIFT NURSE. PATIENT RECEIVED LYING IN BED, RESTING, EYES CLOSED, NO S/S OF ACUTE DISTRESS NOTED. BREATHING EVEN AND UNLABORED. HOB RAISED, NASAL CANULA ATTACHED PROPERLY, ON 4L OF OXYGEN. AT BEDSIDE. IVF INFUSING WELL, IV SITE PATENT, NO SIGNS OF INFILTRATION OR INFECTION NOTED. ORTA ATTACHED, SECURED, AND DRAINING BY GRAVITY. CALL LIGHT WITH PATIENT. BED IS LOCKED AND AT LOWEST POSITION. WILL CONTINUE TO MONITOR.
[2022-09-10 20:00] VITALS: BP_SYST 125
--- NOTE | 2022-09-10 23:00 | NUR ---
ROUNDS NO SIGNS OF DISCOMFORT. ALL NEEDS MET. WILL MONITOR.
[2022-09-11] VITALS (21 sets, daily range): BP systolic 95–156
--- NOTE | 2022-09-11 03:00 | NUR ---
ROUNDS PATIENT IN BED, RESTING. NO CHANGES FROM PREVIOUS. ALL NEEDS MET. WILL MONITOR.
[2022-09-11] MEDS: D5W 1,000 ML IV SCH ×2 (04:44→12:34)
[2022-09-11] MEDS: LEVOTHYROXINE SODIUM 0.1 MG TABLET PO SCH (06:09)
--- NOTE | 2022-09-11 06:29 | NUR ---
CLOSING NOTE PATIENT IN BED, NO S/S OF ACUTE DISTRESS. BREATHING EVEN AND UNLABORED. HOB RAISED. IVF INFUSING WELL, IV SITE PATENT, NO SIGNS OF INFILTRATION OR INFECTION NOTED. ORTA ATTACHED, SECURED, AND DRAINING BY GRAVITY. ALL NEEDS MET THROUGHOUT SHIFT. FALL, SAFETY PRECAUTIONS MAINTAINED THROUGHOUT SHIFT. WILL CONTINUE TO MONITOR UNTIL PATIENT CARE IS ENDORSED TO ONCOMING DAYSHIFT NURSE.
[2022-09-11] MEDS: PANTOPRAZOLE SODIUM 40 MG/VIAL (PROTONIX) IVP SCH (08:14)
[2022-09-11] MEDS: CEFEPIME 2 GM in D5W 100 ML IV SCH ×2 (08:14→20:44)
[2022-09-11] MEDS: ENOXAPARIN SODIUM 100 MG/ML SYRINGE SUBCUT SCH ×2 (08:19→20:45)
[2022-09-11] MEDS: POTASSIUM CHLORIDE 20 MEQ TAB.PRT.SR PO SCH (08:30)
[2022-09-11] MEDS: ISOSORBIDE MONONITRATE 30 MG TAB.ER.24H PO SCH (08:30)
[2022-09-11] MEDS: CARVEDILOL 6.25 MG TABLET (COREG) PO SCH (08:30)
[2022-09-11] MEDS: ASPIRIN 81 MG TAB.CHEW PO SCH (08:30)
[2022-09-11] MEDS: FERROUS SULFATE 325 MG TABLET.DR PO SCH (08:30)
[2022-09-11] MEDS: amLODIPine BESYLATE 10 MG TABLET PO SCH (08:30)
[2022-09-11] MEDS: AMIODARONE HCL 200 MG TABLET PO SCH (08:30)
--- NOTE | 2022-09-11 08:33 | NUR ---
DR CHAVEZ WAS HERE AND SPOKE WITH PT'S SPOUSE AT BEDSIDE.
[2022-09-11 08:39] LABS: ANION GAP 5 (5-15); CALCIUM 9.3 mg/dL (8.4-11.0); CHLORIDE 108 mmol/L (98-107); CREATININE 0.61 mg/dL (0.55-1.30); GLUCOSE 125 mg/dL (70-99); UREA NITROGEN, BLOOD 11 mg/dL (8-21)
--- NOTE | 2022-09-11 08:45 | NUR ---
CONSULTATION PAGED/CALLED Reason for Consultation: gtube placement Person Who was Notified: nikko Consulting Physician: arcenio raymond Ordering Physician: catracho hernandes
--- NOTE | 2022-09-11 09:50 | NUR ---
DR SANTOS SEEN PTJovi AT BEDSIDE DOPING AB. DR SANTOS SPOKE WITH PT'S SPOUSE ON THE PHONE.
--- NOTE | 2022-09-11 10:01 | NUR ---
PHYSICAL THERAPY CO-SIGN The Physical Therapy Progress Notes documented by Varitype Operator have been reviewed. Reviewed/Co-Signed by: Kristopher Keith Documentation Done by:LA NENA HILL Addendum: 09/11/22 at 1001 by Kristopher Keith PT Amended: Links added.
[2022-09-11 10:36] LABS: ANION GAP 4 (5-15); CALCIUM 8.5 mg/dL (8.4-11.0); CHLORIDE 107 mmol/L (98-107); CREATININE 0.62 mg/dL (0.55-1.30); GLUCOSE 131 mg/dL (70-99); UREA NITROGEN, BLOOD 11 mg/dL (8-21)
--- NOTE | 2022-09-11 10:45 | NUR ---
PT TRANSFERED TO ICU, SBAR REPORT GIVEN TO ABIGAIL CRONIN. PT WAS INTUBATED BY DR SANTOS AND BRONCHOSCOPY WAS DONE BEFORE TRANSFERRING PT.
--- NOTE | 2022-09-11 10:47 | NUR ---
1059 ASSISTED INTUBATION BY MD SANTOS. ETT 7.5/25 AT LIP LINE. CO2 DETECTOR CHANGED COLOR AND BILATERAL BREATH SOUNDS NOTICED. 1040 PATIENT TRANSFERRED TO ICU 2 AND PLACED ON VENT SETTINGS WITH AC20, VT350, PEEP +5, FIO2 100%. VENT TO RED OUTLET AND ALARMS ARE AUDIBLE.
[2022-09-11 10:48] LABS: ALANINE AMINOTRANSFERASE 30 U/L (12-78); ALBUMIN 1.6 g/dL (3.4-4.8); ASPARTATE AMINOTRANSFERASE 19 U/L (10-37); PHOSPHORUS 2.8 mg/dL (2.7-4.5); TOTAL BILIRUBIN 0.5 mg/dL (0.0-1.0)
[2022-09-11 10:49] LABS: HEMATOCRIT 28.1 % (36-48); HEMOGLOBIN 8.6 g/dL (12.0-16.0); MEAN CORPUSCULAR HEMOGLOBIN 21 pg (27-31); MEAN CORPUSCULAR HGB CONC 30 % (32-36); MEAN CORPUSCULAR VOLUME 70 fL (79.0-98.0); PLATELET COUNT (AUTO) 620 K/uL (130-430); RED BLOOD CELL COUNT(AUTO) 4.04 MIL/uL (4.2-6.2); RED CELL DISTRIBUTION WIDTH 38.1 % (9.0-15.0); WHITE BLOOD COUNT (AUTO) 13.9 K/uL (4.8-10.8)
--- NOTE | 2022-09-11 11:14 | NUR ---
DR CHAVEZ MADE AWARE THAT PT IS INTUBATED AND NOW IN ICU.
[2022-09-11] MEDS: FENTANYL CITRATE-0.9 % NACL/PF 100 ML IV PRN (11:20)
[2022-09-11] MEDS: MIDAZOLAM IN NACL,ISO-OSMOT/PF 100 ML IV PRN (11:25)
--- NOTE | 2022-09-11 11:26 | NUR ---
PER MD Rex PRATER RADIOLOGY, CXR SHOWS ET TOO DEEP, SUGGEST PULLBACK ET ABOUT 3 CM. UPDATE REPORTED TO [facility] RT. TO ADJUST ACCORDINGLY. PT VSS. NAD NOTED. UPDATED PRIMARY RN MEHRDAD ALSO.
[2022-09-11] MEDS: FLUCONAZOLE 100 mg/ NS 50 ML IV SCH (12:34)
[2022-09-11] MEDS ORDERED: NOREPINEPHRINE BITARTRATE 16 MG in D5W 234 ML IV PRN (13:15)
--- NOTE | 2022-09-11 13:26 | NUR ---
Nutrition F/U RD reviewed pts current EMR including diet hx, physician notes, nursing notes, pertinent labs/meds/procedures, care trends and care activity. Subjective Information: 09/06: Pt extubated 09/11: Rapid response called and pt intubated and sent to ICU bed 2 RD rounded to pt room and s/w RN. RD witnessed Vetot 12.3, no propofol and pt intubated, not on propofol. RN said she would likely place an OGT or NGT soon. Per EMR review: pt abd soft, non-distended, w/ hypoactive bowel sounds; no documented BM for 14 days; GI consult for PEG. Pt has been NPO for many days, it is likely she is not meeting nutritional needs at this time. Current Diet Order/Nutrition Support: Vital AF 1.2 at 50 ml/hr, Free Water Flush:per MD d/t CHF via OGT x 11 days & Joe BID x 7 days % PO intake: NPO Last BM: x2 08/28 (14 days ago) NEW Estimated Energy Expenditure (kcals/day) 1436 kcal (PSU 2002 d/t vent/ICU status; MSJ:[id number] Tmax: 37.22'C, Ve: 12.3 Estimated Protein Required (g/day) 94-125 (1.5-2 gm/kg CBW d/t sepsis, critical illness) Estimated Fluid Required (l/day) Refer to MD (CHF) Problem/Etiology/Signs/Symptoms * Suboptimal nutrient intakes R/T decreased appetite AEB pt report of decreased PO intake and documentation. *Ongoing * Inadequate EN support R/T metabolic demands AEB no current infusing EN support. *resolved New Expected Outcomes/Goals Nutrition support initiated w/in 1-2 days, improvements in skin integrity, improvements in bowel function w/BM q1-3 days NEW Dietitian Recommendations * Initiate Vital AF 1.2 @ 50 mL/hr (goal) via NGT/OGT, if/when appropriate Provides: 1440 kcal, 90g PRO, 973mL free water Meets: 100% of est kcal, 96% of lower est PRO * Consider free water flush 100 mL q4h, or per MD rec * Continue Joe BID * Consider bowel regimen as no documented BM in 14 days Follow up High Risk: F/U within 2-3 days GS, MPH, RD
--- NOTE | 2022-09-11 13:32 | NUR ---
Dietitian Recommendations * Initiate Vital AF 1.2 @ 50 mL/hr (goal) via NGT/OGT, if/when appropriate Provides: 1440 kcal, 90g PRO, 973mL free water Meets: 100% of est kcal, 96% of lower est PRO * Consider free water flush 100 mL q4h, or per MD rec * Continue Joe BID * Consider bowel regimen as no documented BM in 14 days GS, MPH, RD Please refer to Nutrition F/U for further details. Thanks!
[2022-09-11 13:45] LABS: BASOPHILS % (MANUAL) 0 % (0-2); EOSINOPHILS % (MANUAL) 1 % (0-7); LYMPHOCYTES % (MANUAL) 16 % (20-46); MONOCYTES % (MANUAL) 2 % (0-11)
[2022-09-11] MEDS ORDERED: COMMUNICATION ORDER XX ONE (14:00)
[2022-09-11] MEDS: POTASSIUM CHLORIDE 40 MEQ in D5W 250 ML IV SCH ×2 (14:22→18:38)
[2022-09-11] MEDS ORDERED: NOREPINEPHRINE 4 MG/4 ML VIAL IV ONE (14:58)
--- NOTE | 2022-09-11 15:38 | NUR ---
RT NOTES 1155 CHEST X RAY SHOWS TIP OF ETT AT RIGHT MAINSTEM. ETT PULLED TO 21CM LL PER RN ORDER. VOLUMES ACHEIVED WILL CONT TO MONITOR. Addendum: 09/11/22 at 1540 by Madeline Rosas RT Amended: Links added.
[2022-09-11] MEDS ORDERED: POTASSIUM CHLORIDE 20 MEQ/PKT PACKET GT PRN (16:00)
[2022-09-11] MEDS ORDERED: DOCUSATE SODIUM 100 MG/10 ML UDC PO PRN (16:00)
[2022-09-11] MEDS ORDERED: DOCUSATE SODIUM 100 MG/10 ML UDC GT PRN (16:00)
--- NOTE | 2022-09-11 18:39 | NUR ---
After multiple attempts to place NG/OG, tube terminated in hiatal hernia as per Radiology, attempt to reposition tube past hernia unsuccussful. Tube removed, call placed to Dr Vallejo, notified of failed attempts. Okay to leave tube out until morning.
--- NOTE | 2022-09-11 19:15 | NUR ---
Opening notes Received report from endorsing morning shift RN for continuity of care. Patient is lying in bed with IVF D5 @ 100 mL/hr, levophed @ 0.03 mcg/kg/min, versed @ 2mg/hr, fentanyl @ 25 mcg/hr, and KCL 40 mEq in D5W @ 67.5 mL/hr. Patient's vital signs blood pressure 111/46, heart rate 73, respirations 35, and SPO2 99% on ventilator. Ventilator settings AC 20, tidal volume 350, FIO2 50%, and peep of 5. Boyer catheter is in place draining to gravity. Bed is locked and in lowest position, fall and safety precautions is in place.
[2022-09-11] MEDS: CARVEDILOL 6.25 MG TABLET (COREG) GT SCH (20:45)
[2022-09-11] MEDS: FERROUS SULFATE 325 MG TABLET.DR GT SCH (20:46)
[2022-09-12] VITALS (31 sets, daily range): BP systolic 93–138
[2022-09-12] MEDS: D5W 1,000 ML IV SCH (00:07)
[2022-09-12 06:17] LABS: ANION GAP 4 (5-15); CALCIUM 9.1 mg/dL (8.4-11.0); CHLORIDE 104 mmol/L (98-107); CREATININE 0.71 mg/dL (0.55-1.30); GLUCOSE 126 mg/dL (70-99); UREA NITROGEN, BLOOD 11 mg/dL (8-21)
[2022-09-12] MEDS: LEVOTHYROXINE SODIUM 0.1 MG TABLET GT SCH (06:20)
[2022-09-12 08:43] LABS: BASOPHILS # (AUTO) 0.1 K/uL (0.0-0.2); BASOPHILS % (AUTO) 0.6 % (0.0-2.0); EOSINOPHILS # (AUTO) 0.4 K/uL (0.0-0.4); EOSINOPHILS % (AUTO) 3.9 % (0.0-4.0); HEMATOCRIT 28.2 % (36-48); HEMOGLOBIN 8.7 g/dL (12.0-16.0); LYMPHOCYTES # (AUTO) 3.1 K/uL (1.0-5.5); LYMPHOCYTES % (AUTO) 29.6 % (20.5-51.5); MEAN CORPUSCULAR HEMOGLOBIN 22 pg (27-31); MEAN CORPUSCULAR HGB CONC 31 % (32-36); MEAN CORPUSCULAR VOLUME 71 fL (79.0-98.0); MONOCYTES # (AUTO) 0.5 K/uL (0.0-1.0); MONOCYTES % (AUTO) 5.1 % (1.7-9.3); NEUTROPHILS # (AUTO) 6.5 K/uL (1.8-7.7); NEUTROPHILS % (AUTO) 60.8 % (40.0-70.0); PLATELET COUNT (AUTO) 597 K/uL (130-430); RED BLOOD CELL COUNT(AUTO) 3.99 MIL/uL (4.2-6.2); RED CELL DISTRIBUTION WIDTH 38.1 % (9.0-15.0); WHITE BLOOD COUNT (AUTO) 10.6 K/uL (4.8-10.8)
[2022-09-12] MEDS ORDERED: D5W 1,000 ML IV SCH (08:45)
[2022-09-12] MEDS: ASPIRIN 81 MG TAB.CHEW GT SCH (09:00)
[2022-09-12] MEDS: D5/0.45 NS 1,000 ML IV SCH (09:00)
[2022-09-12] MEDS: FERROUS SULFATE 325 MG TABLET.DR GT SCH ×2 (09:00→20:45)
[2022-09-12] MEDS: AMIODARONE HCL 200 MG TABLET GT SCH (09:00)
[2022-09-12] MEDS: CARVEDILOL 6.25 MG TABLET (COREG) GT SCH ×2 (09:00→20:45)
[2022-09-12] MEDS: PANTOPRAZOLE SODIUM 40 MG/VIAL (PROTONIX) IVP SCH (09:00)
[2022-09-12] MEDS: POTASSIUM CHLORIDE 20 MEQ/PKT PACKET GT SCH (09:00)
[2022-09-12] MEDS: ENOXAPARIN SODIUM 100 MG/ML SYRINGE SUBCUT SCH ×2 (09:00→20:44)
[2022-09-12] MEDS: ISOSORBIDE MONONITRATE 30 MG TAB.ER.24H PO SCH (09:00)
[2022-09-12] MEDS: amLODIPine BESYLATE 10 MG TABLET GT SCH (09:00)
[2022-09-12] MEDS: FLUCONAZOLE 100 mg/ NS 50 ML IV SCH (11:31)
[2022-09-12] MEDS ORDERED: VANCOMYCIN HCL 750 MG in NS 250 ML IV SCH (15:00)
--- NOTE | 2022-09-12 17:00 | NUR ---
at bedside, patient appears comfortable. Glasses and bilateral hearing aids sent home with , Eric.
[2022-09-12] MEDS: FENTANYL CITRATE-0.9 % NACL/PF 100 ML IV PRN (17:53)
--- NOTE | 2022-09-12 20:00 | NUR ---
RN NOTES STILL ORALLY INTUBATED TO VENT, FIO2 30%. SPO2 GOOD.SINUS RHYTHM ON THE MONITOR.
[2022-09-12] MEDS: CEFEPIME 2 GM in D5W 100 ML IV SCH (20:44)
--- NOTE | 2022-09-12 21:00 | NUR ---
RN NOTES PICC LINE DRESSING CHANGED
[2022-09-13] VITALS (30 sets, daily range): BP systolic 91–130
--- NOTE | 2022-09-13 | NUR ---
MADE COMFORTABLE,TURNED TO SIDES, WITH PILLOW SUPPORT.
--- NOTE | 2022-09-13 04:29 | NUR ---
AM CARE DONE, SKIN DRESSINGS CHANGED.
[2022-09-13] MEDS: D5/0.45 NS 1,000 ML IV SCH ×3 (05:54→12:51)
[2022-09-13] MEDS: LEVOTHYROXINE SODIUM 0.1 MG TABLET GT SCH (05:54)
[2022-09-13 06:47] LABS: ANION GAP 7 (5-15); CALCIUM 9.1 mg/dL (8.4-11.0); CHLORIDE 104 mmol/L (98-107); CREATININE 0.55 mg/dL (0.55-1.30); GLUCOSE 115 mg/dL (70-99)
[2022-09-13 07:44] LABS: UREA NITROGEN, BLOOD 8 mg/dL (8-21)
--- NOTE | 2022-09-13 08:02 | NUR ---
Opening Note: Patient is a 82 year old female that was admitted 08/23/22 for dx of new onset seizure. CC- lives with and was witnessed having a seizure, she was taken to E.D and admitted to the [facility] floor. PMHX: anxiety, migraine headaches, hormone deficiency, hypothyroidism, HTN, afib- amidarone at home. 08/29- CTA of chest- showing PNA, CHF, CAD. 09/11- sent to icu and intubated for airway protection by Dr. Vallejo. Picc line to ARCELIA- intact, patent, dressing CDI. IVF- fentanyl 25, versed .5, D51/2 80cc/hr. Intubated cough and gag present, NSR on tele monitor, 7.5/21cm, Vent- AC20, 350, +5, 30%. Boyer inserted 08/28- in place draining to gravity, intact. No BM noted per noc. NPO- pending peg placement today, GI to speak with and obtain consent. Skin- scab- nose, sacrum and spine- DTI. accuchecks noted. Will update family throughout shift.
[2022-09-13] MEDS: AMIODARONE HCL 200 MG TABLET GT SCH (08:37)
[2022-09-13] MEDS: FERROUS SULFATE 325 MG TABLET.DR GT SCH ×3 (08:37→21:08)
[2022-09-13] MEDS: PANTOPRAZOLE SODIUM 40 MG/VIAL (PROTONIX) IVP SCH (08:37)
[2022-09-13] MEDS: ASPIRIN 81 MG TAB.CHEW GT SCH ×2 (08:37→08:42)
[2022-09-13] MEDS: CARVEDILOL 6.25 MG TABLET (COREG) GT SCH ×2 (08:37→21:00)
[2022-09-13] MEDS: POTASSIUM CHLORIDE 20 MEQ/PKT PACKET GT SCH ×2 (08:38→08:42)
[2022-09-13] MEDS: amLODIPine BESYLATE 10 MG TABLET GT SCH (08:38)
[2022-09-13] MEDS: ENOXAPARIN SODIUM 100 MG/ML SYRINGE SUBCUT SCH (09:05)
--- NOTE | 2022-09-13 09:39 | NUR ---
Update Peg/EGD: Spoke with ABIGAIL guzmán MD spoke with Eric. Called Eric and son Golden- consented. pending GI OR team arrival. Addendum: 09/13/22 at 1259 by [facility], ABIGAIL HAYES EGD/PEG complete: 3 versed, 30 fent,- per and xray ok to use. Wait 4 hours to start TF. Dietary consult placed for TF recommendations. Vanco given during EGD.
[2022-09-13] MEDS ORDERED: fentaNYL CITRATE/PF 100 MCG/2 ML AMP ONE (10:31)
[2022-09-13] MEDS ORDERED: MIDAZOLAM HCL 5 MG/5 ML VIAL ONE (10:31)
[2022-09-13] MEDS ORDERED: BENZOCAINE 20% 0.5mL UD SPRAY MM ONE (10:44)
[2022-09-13] MEDS ORDERED: VANCOMYCIN HCL 1,500 MG in NS 250 ML IV ONE (11:00)
--- NOTE | 2022-09-13 11:00 | NUR ---
RT NOTES Standby during PEG placement. FIO2 to 100% during procedure. ETT remains secure/patent. FIO2 back to 30% once procedure was over.
[2022-09-13] MEDS: FLUCONAZOLE 100 mg/ NS 50 ML IV SCH (12:04)
[2022-09-13] MEDS: MIDAZOLAM IN NACL,ISO-OSMOT/PF 100 ML IV PRN (18:45)
[2022-09-13] MEDS: CEFEPIME 2 GM in D5W 100 ML IV SCH (21:08)
[2022-09-13] MEDS: ENOXAPARIN SODIUM 80 MG/0.8 ML SYRINGE SUBCUT SCH (21:09)
[2022-09-13] MEDS: FENTANYL CITRATE-0.9 % NACL/PF 100 ML IV PRN (22:27)
[2022-09-14] VITALS (34 sets, daily range): BP systolic 94–132
[2022-09-14] MEDS: D5/0.45 NS 1,000 ML IV SCH ×3 (06:31→23:30)
[2022-09-14] MEDS: LEVOTHYROXINE SODIUM 0.1 MG TABLET GT SCH (06:32)
[2022-09-14 07:38] LABS: ANION GAP 8 (5-15); CALCIUM 8.8 mg/dL (8.4-11.0); CHLORIDE 104 mmol/L (98-107); CREATININE 0.68 mg/dL (0.55-1.30); GLUCOSE 141 mg/dL (70-99); UREA NITROGEN, BLOOD 8 mg/dL (8-21)
[2022-09-14] MEDS: amLODIPine BESYLATE 10 MG TABLET GT SCH (09:00)
[2022-09-14] MEDS: PANTOPRAZOLE SODIUM 40 MG/VIAL (PROTONIX) IVP SCH (09:39)
[2022-09-14] MEDS: ENOXAPARIN SODIUM 80 MG/0.8 ML SYRINGE SUBCUT SCH ×2 (09:39→20:36)
[2022-09-14] MEDS: ASPIRIN 81 MG TAB.CHEW GT SCH (09:40)
[2022-09-14] MEDS: CARVEDILOL 6.25 MG TABLET (COREG) GT SCH ×2 (09:41→20:33)
[2022-09-14] MEDS: FERROUS SULFATE 325 MG TABLET.DR GT SCH ×2 (09:41→20:34)
[2022-09-14] MEDS: AMIODARONE HCL 200 MG TABLET GT SCH (09:42)
[2022-09-14] MEDS: POTASSIUM CHLORIDE 20 MEQ/PKT PACKET GT SCH (09:42)
[2022-09-14 10:20] LABS: BASOPHILS # (AUTO) 0.1 K/uL (0.0-0.2); BASOPHILS % (AUTO) 1.2 % (0.0-2.0); EOSINOPHILS # (AUTO) 0.4 K/uL (0.0-0.4); EOSINOPHILS % (AUTO) 4.4 % (0.0-4.0); HEMATOCRIT 26.8 % (36-48); HEMOGLOBIN 8.2 g/dL (12.0-16.0); LYMPHOCYTES # (AUTO) 2.2 K/uL (1.0-5.5); LYMPHOCYTES % (AUTO) 21.6 % (20.5-51.5); MEAN CORPUSCULAR HEMOGLOBIN 22 pg (27-31); MEAN CORPUSCULAR HGB CONC 31 % (32-36); MEAN CORPUSCULAR VOLUME 71 fL (79.0-98.0); MONOCYTES # (AUTO) 0.7 K/uL (0.0-1.0); MONOCYTES % (AUTO) 7.4 % (1.7-9.3); NEUTROPHILS # (AUTO) 6.5 K/uL (1.8-7.7); NEUTROPHILS % (AUTO) 65.4 % (40.0-70.0); PLATELET COUNT (AUTO) 567 K/uL (130-430); RED BLOOD CELL COUNT(AUTO) 3.78 MIL/uL (4.2-6.2); RED CELL DISTRIBUTION WIDTH 38.6 % (9.0-15.0)
[2022-09-14] MEDS: FLUCONAZOLE 100 mg/ NS 50 ML IV SCH (12:38)
[2022-09-14] MEDS: FENTANYL CITRATE-0.9 % NACL/PF 100 ML IV PRN (16:50)
--- NOTE | 2022-09-14 17:00 | NUR ---
Nutrition F/U RD reviewed pts current EMR including diet hx, physician notes, nursing notes, pertinent labs/meds/procedures, care trends and care activity. Subjective Information: 09/06: Pt extubated 09/11: Rapid response called and pt intubated and sent to ICU bed 2 09/13: S/P PEG placement Nutrition Consult received 09/13/[address] attended ICU rounds this morning. Primary RN reported that pt has been tolerating TF at goal rate of 50 ml/hr. RD visited pt at bedside this afternoon. present. Witnessed TF infusing as per physician order. Current Diet Order/Nutrition Support: Vital AF 1.2 at 50 ml/hr, Free Water Flush: 50 q6h via GT x1 day & Joe BID x10 days % PO intake: NPO Last BM: x1 09/12 NEW Estimated Energy Expenditure (kcals/day) 1199 (PSU 2002 d/t vent/ICU status; Tmax: 36.9'C, Ve: 8.8) Estimated Protein Required (g/day) 94-125 (1.5-2 gm/kg CBW d/t sepsis, critical illness) Estimated Fluid Required (l/day) Refer to MD (CHF) Problem/Etiology/Signs/Symptoms * Suboptimal nutrient intakes R/T decreased appetite AEB pt report of decreased PO intake and documentation. *Ongoing * Inadequate EN support R/T metabolic demands AEB no current infusing EN support. *Resolved Expected Outcomes/Goals Nutrition support initiated w/in 1-2 days, improvements in skin integrity, improvements in bowel function w/BM q1-3 days Dietitian Recommendations * Continue Vital AF 1.2 at 50 ml/hr (goal) via GT Provides: 1440 kcal/day, 90 gm protein/day, and 973 ml free water/day Meets: 120% of estimated caloric needs and 96% of lower end of estimated protein needs * Continue Free Water Flush: 50 q6h per physician d/t CHF * Continue Joe BID * Please consult RD if/when pt is extubated to re-assess nutritional needs Follow up Moderate Risk: F/U within 3-5 days
--- NOTE | 2022-09-14 17:05 | NUR ---
Dietitian Recommendations * Continue Vital AF 1.2 at 50 ml/hr (goal) via GT Provides: 1440 kcal/day, 90 gm protein/day, and 973 ml free water/day Meets: 120% of estimated caloric needs and 96% of lower end of estimated protein needs * Continue Free Water Flush: 50 q6h per physician d/t CHF * Continue Joe BID * Please consult RD if/when pt is extubated to re-assess nutritional needs LP, MS, RD Please refer to Nutrition F/U for details.
--- NOTE | 2022-09-14 19:30 | NUR ---
RECEIVED SEDATED WITH FENTANYL AT 50MCG/HR AND VERSED AT 1MG/HR, RASS -2. ORALLY INTUBATED, ETT 7.5 AT 21CM LIPLINE. AC 20, FIO2 30%, TV 350, PEEP 5. SAT 97%. DINKEY DRIVER IS SHOWING NSR. LEVOPHED IS INFUSING AT 0.06MCG/KG/MIN. D51/2NS IS INFUSING AT 80ML/HR. ALL IVS ARE INFUSING ON THE RUE PICC LINE. ABDOMEN IS SOFT AND NON-DISTENDED. PEG FEEDING OF VITAL AF IS GOING AT 50 ML/HR. RESIDUAL 0 ML. ON ASPIRATION PRECAUTION. HOB ELEVATED. ORTA INTACT AND PATENT, DRAINING WELL. TEMP 98.5.
[2022-09-14] MEDS: CEFEPIME 2 GM in D5W 100 ML IV SCH (20:35)
[2022-09-15] VITALS (32 sets, daily range): BP systolic 96–128
[2022-09-15] MEDS: LEVOTHYROXINE SODIUM 0.1 MG TABLET GT SCH (06:17)
[2022-09-15 07:21] LABS: BASOPHILS % (AUTO) 0.3 % (0.0-2.0); EOSINOPHILS # (AUTO) 0.2 K/uL (0.0-0.4); EOSINOPHILS % (AUTO) 1.7 % (0.0-4.0); HEMATOCRIT 22.9 % (36-48); LYMPHOCYTES # (AUTO) 1.9 K/uL (1.0-5.5); LYMPHOCYTES % (AUTO) 15.3 % (20.5-51.5); MEAN CORPUSCULAR HEMOGLOBIN 22 pg (27-31); MEAN CORPUSCULAR HGB CONC 31 % (32-36); MEAN CORPUSCULAR VOLUME 71 fL (79.0-98.0); MONOCYTES # (AUTO) 0.8 K/uL (0.0-1.0); NEUTROPHILS # (AUTO) 9.1 K/uL (1.8-7.7); NEUTROPHILS % (AUTO) 75.7 % (40.0-70.0); PLATELET COUNT (AUTO) 448 K/uL (130-430); RED BLOOD CELL COUNT(AUTO) 3.24 MIL/uL (4.2-6.2); RED CELL DISTRIBUTION WIDTH 37.7 % (9.0-15.0); WHITE BLOOD COUNT (AUTO) 12.1 K/uL (4.8-10.8)
--- NOTE | 2022-09-15 07:45 | NUR ---
Md Dickerson notified of critical HGB 7 - will be in shortly to round on patient
[2022-09-15 07:52] LABS: ANION GAP 6 (5-15); CALCIUM 8.4 mg/dL (8.4-11.0); CHLORIDE 105 mmol/L (98-107); CREATININE 0.72 mg/dL (0.55-1.30); GLUCOSE 148 mg/dL (70-99); UREA NITROGEN, BLOOD 14 mg/dL (8-21)
[2022-09-15] MEDS: ENOXAPARIN SODIUM 80 MG/0.8 ML SYRINGE SUBCUT SCH ×2 (09:47→23:20)
[2022-09-15] MEDS: PANTOPRAZOLE SODIUM 40 MG/VIAL (PROTONIX) IVP SCH (09:48)
[2022-09-15] MEDS: ASPIRIN 81 MG TAB.CHEW GT SCH (09:49)
[2022-09-15] MEDS: AMIODARONE HCL 200 MG TABLET GT SCH (09:49)
[2022-09-15] MEDS: FERROUS SULFATE 325 MG TABLET.DR GT SCH ×2 (09:50→23:19)
[2022-09-15] MEDS: POTASSIUM CHLORIDE 20 MEQ/PKT PACKET GT SCH (09:50)
[2022-09-15] MEDS: CARVEDILOL 6.25 MG TABLET (COREG) GT SCH ×2 (09:51→21:00)
[2022-09-15] MEDS: D5/0.45 NS 1,000 ML IV SCH (13:25)
[2022-09-15] MEDS: FLUCONAZOLE 100 mg/ NS 50 ML IV SCH (13:28)
--- NOTE | 2022-09-15 18:02 | NUR ---
RT NOTES DR SANTOS PLACED PT ON CPAP5 PS [id number] PT TPLACED BACK TO AC. PT TOLERATED WELL. Addendum: 09/15/22 at 1804 by Madeline Rosas RT Amended: Links added.
[2022-09-15] MEDS: ACETAMINOPHEN 325 MG TABLET GT PRN (18:11)
[2022-09-15] MEDS: FENTANYL CITRATE-0.9 % NACL/PF 100 ML IV PRN (20:29)
[2022-09-15] MEDS: CEFEPIME 2 GM in D5W 100 ML IV SCH (23:20)
[2022-09-16] VITALS (31 sets, daily range): BP systolic 93–140
[2022-09-16] MEDS ORDERED: NOREPINEPHRINE 4 MG/4 ML VIAL IV ONE (00:23)
[2022-09-16] MEDS: D5/0.45 NS 1,000 ML IV SCH ×2 (00:30→15:17)
[2022-09-16 00:42] LABS: BASOPHILS % (AUTO) 0.3 % (0.0-2.0); EOSINOPHILS # (AUTO) 0.2 K/uL (0.0-0.4); EOSINOPHILS % (AUTO) 1.8 % (0.0-4.0); HEMATOCRIT 27.4 % (36-48); HEMOGLOBIN 8.7 g/dL (12.0-16.0); LYMPHOCYTES # (AUTO) 2.2 K/uL (1.0-5.5); MEAN CORPUSCULAR HEMOGLOBIN 23 pg (27-31); MEAN CORPUSCULAR HGB CONC 32 % (32-36); MEAN CORPUSCULAR VOLUME 73 fL (79.0-98.0); MONOCYTES # (AUTO) 1.2 K/uL (0.0-1.0); MONOCYTES % (AUTO) 8.7 % (1.7-9.3); NEUTROPHILS # (AUTO) 9.9 K/uL (1.8-7.7); NEUTROPHILS % (AUTO) 73.2 % (40.0-70.0); PLATELET COUNT (AUTO) 410 K/uL (130-430); RED BLOOD CELL COUNT(AUTO) 3.75 MIL/uL (4.2-6.2); RED CELL DISTRIBUTION WIDTH 36.6 % (9.0-15.0); WHITE BLOOD COUNT (AUTO) 13.6 K/uL (4.8-10.8)
[2022-09-16] MEDS: FENTANYL CITRATE-0.9 % NACL/PF 100 ML IV PRN (03:00)
[2022-09-16] MEDS: LEVOTHYROXINE SODIUM 0.1 MG TABLET GT SCH (06:49)
[2022-09-16 07:15] LABS: BASOPHILS # (AUTO) 0.1 K/uL (0.0-0.2); BASOPHILS % (AUTO) 0.4 % (0.0-2.0); EOSINOPHILS # (AUTO) 0.4 K/uL (0.0-0.4); EOSINOPHILS % (AUTO) 2.5 % (0.0-4.0); HEMATOCRIT 27.9 % (36-48); LYMPHOCYTES # (AUTO) 2.7 K/uL (1.0-5.5); LYMPHOCYTES % (AUTO) 18.3 % (20.5-51.5); MEAN CORPUSCULAR HEMOGLOBIN 24 pg (27-31); MEAN CORPUSCULAR HGB CONC 32 % (32-36); MEAN CORPUSCULAR VOLUME 74 fL (79.0-98.0); MONOCYTES # (AUTO) 1.1 K/uL (0.0-1.0); MONOCYTES % (AUTO) 7.8 % (1.7-9.3); NEUTROPHILS # (AUTO) 10.3 K/uL (1.8-7.7); PLATELET COUNT (AUTO) 433 K/uL (130-430); RED BLOOD CELL COUNT(AUTO) 3.78 MIL/uL (4.2-6.2); WHITE BLOOD COUNT (AUTO) 14.5 K/uL (4.8-10.8)
[2022-09-16 07:43] LABS: ALANINE AMINOTRANSFERASE 21 U/L (12-78); ALBUMIN 1.1 g/dL (3.4-4.8); ANION GAP 7 (5-15); ASPARTATE AMINOTRANSFERASE 16 U/L (10-37); CHLORIDE 102 mmol/L (98-107); CREATININE 0.74 mg/dL (0.55-1.30); GLUCOSE 146 mg/dL (70-99); TOTAL BILIRUBIN 0.4 mg/dL (0.0-1.0); UREA NITROGEN, BLOOD 12 mg/dL (8-21)
--- NOTE | 2022-09-16 09:21 | NUR ---
ASSESSED PT TF - OFF SINCE MIDNIGHT IN ANTICIPATION OF WEANING TRIAL AND POSSIBLE EXTUBATION SEDATION BEING WEANED OFF VERSED - PAUSED @ 0900 FENTANYL - TITRATED DOWN TO 55MCG/HR @ 0900, THEN 25MCG BY 0930 PRECEDEX TO BE STARTED.
[2022-09-16] MEDS: FERROUS SULFATE 325 MG TABLET.DR GT SCH ×2 (09:37→20:21)
[2022-09-16] MEDS: PANTOPRAZOLE SODIUM 40 MG/VIAL (PROTONIX) IVP SCH (09:37)
[2022-09-16] MEDS: POTASSIUM CHLORIDE 20 MEQ/PKT PACKET GT SCH (09:37)
[2022-09-16] MEDS: AMIODARONE HCL 200 MG TABLET GT SCH (09:37)
[2022-09-16] MEDS: CARVEDILOL 6.25 MG TABLET (COREG) GT SCH ×2 (09:38→20:21)
[2022-09-16] MEDS: ASPIRIN 81 MG TAB.CHEW GT SCH (09:38)
[2022-09-16] MEDS: ENOXAPARIN SODIUM 80 MG/0.8 ML SYRINGE SUBCUT SCH ×2 (09:38→20:22)
[2022-09-16] MEDS: FLUCONAZOLE 100 mg/ NS 50 ML IV SCH (15:16)
[2022-09-16] MEDS: ALBUMIN HUMAN 25% 100 ML IV SCH ×2 (18:29→21:00)
--- NOTE | 2022-09-16 18:45 | NUR ---
Levophed weaned off @1500 Fentanyl and Versed weaned off by 10am precedex started at 0.2mcg around 11am pt has been on cpap trail all shift vitals stable no BM Urine output 1500 for shift TF to be resumed overnight and turned off around 6am for possible extubation tomorrow - will hand off to PM RN.
[2022-09-16] MEDS: CEFEPIME 2 GM in D5W 100 ML IV SCH (20:22)
[2022-09-17] VITALS (36 sets, daily range): BP systolic 89–133
[2022-09-17] MEDS: D5/0.45 NS 1,000 ML IV SCH (01:11)
[2022-09-17] MEDS: ALBUMIN HUMAN 25% 100 ML IV SCH (01:12)
[2022-09-17 06:31] LABS: BASOPHILS % (AUTO) 0.1 % (0.0-2.0); EOSINOPHILS # (AUTO) 0.2 K/uL (0.0-0.4); EOSINOPHILS % (AUTO) 2.4 % (0.0-4.0); HEMOGLOBIN 7.3 g/dL (12.0-16.0); LYMPHOCYTES # (AUTO) 1.3 K/uL (1.0-5.5); LYMPHOCYTES % (AUTO) 12.8 % (20.5-51.5); MEAN CORPUSCULAR HEMOGLOBIN 24 pg (27-31); MEAN CORPUSCULAR HGB CONC 33 % (32-36); MEAN CORPUSCULAR VOLUME 71 fL (79.0-98.0); MONOCYTES # (AUTO) 0.7 K/uL (0.0-1.0); NEUTROPHILS # (AUTO) 7.9 K/uL (1.8-7.7); NEUTROPHILS % (AUTO) 77.7 % (40.0-70.0); PLATELET COUNT (AUTO) 352 K/uL (130-430); RED BLOOD CELL COUNT(AUTO) 3.09 MIL/uL (4.2-6.2); RED CELL DISTRIBUTION WIDTH 36.8 % (9.0-15.0); WHITE BLOOD COUNT (AUTO) 10.1 K/uL (4.8-10.8)
[2022-09-17] MEDS: LEVOTHYROXINE SODIUM 0.1 MG TABLET GT SCH (06:51)
[2022-09-17 07:12] LABS: ALANINE AMINOTRANSFERASE 21 U/L (12-78); ALBUMIN 1.7 g/dL (3.4-4.8); ANION GAP 7 (5-15); ASPARTATE AMINOTRANSFERASE 18 U/L (10-37); CHLORIDE 104 mmol/L (98-107); CREATININE 0.62 mg/dL (0.55-1.30); GLUCOSE 126 mg/dL (70-99); TOTAL BILIRUBIN 0.4 mg/dL (0.0-1.0); UREA NITROGEN, BLOOD 9 mg/dL (8-21)
--- NOTE | 2022-09-17 08:20 | NUR ---
PT PLACED ON CPAP FOR BREATHING TRIAL. 04/25, FIO2@30%. WILL MONITOR PT. TO FOLLOW UP WITH PULMONOLOGY BASED ON HOW PATIENT DOES ON CPAP. VSS, NAD NOTED.
[2022-09-17] MEDS: AMIODARONE HCL 200 MG TABLET GT SCH (08:55)
[2022-09-17] MEDS: ASPIRIN 81 MG TAB.CHEW GT SCH (08:56)
[2022-09-17] MEDS: PANTOPRAZOLE SODIUM 40 MG/VIAL (PROTONIX) IVP SCH (08:57)
[2022-09-17] MEDS: ENOXAPARIN SODIUM 80 MG/0.8 ML SYRINGE SUBCUT SCH ×2 (08:57→20:29)
[2022-09-17] MEDS: POTASSIUM CHLORIDE 20 MEQ/PKT PACKET GT SCH (08:57)
[2022-09-17] MEDS: CARVEDILOL 6.25 MG TABLET (COREG) GT SCH ×2 (08:57→20:28)
[2022-09-17] MEDS: FERROUS SULFATE 325 MG TABLET.DR GT SCH ×2 (08:57→20:28)
--- NOTE | 2022-09-17 11:20 | NUR ---
PAGERobbi SANTOS FOR UPDATE ON PLAN WITH EXTUBATION VS. REPEAT ABG VS. PLACING PATIENT BACK ON AC MODE ON VENT. AWAITING CALL BACK. PT ON CPAP MODE SINCE 0820 PER [address] MARTHA. PT VSS. NAD NOTED. TOLERATING CPAP WELL. WILL CONT TO MONITOR PT.
[2022-09-17] MEDS: FLUCONAZOLE 100 mg/ NS 50 ML IV SCH (11:21)
--- NOTE | 2022-09-17 12:05 | NUR ---
RECEIVED CALL BACK FROM EBENEZER HOWARD. PER MD ORDERS, REPEAT ABG, AFTER ABG PLACE PATIENT BACK ON AC VENT MODE. MD LÓPEZ TO SEE PATIENT LATER THIS AFTERNOON DURING ROUNDING. SON AT BEDSIDE UPDATED WITH PLAN OF CARE.
[2022-09-17] MEDS ORDERED: FUROSEMIDE 40 MG/4 ML VIAL IVP ONE (14:30)
--- NOTE | 2022-09-17 15:00 | NUR ---
GEORGE LOYA AT BEDSIDE FOR WOUND ASSESS. TO ASSIST AND WAIT FOR WOUND CARE ORDERS AND RECOMMENDATIONS.
--- NOTE | 2022-09-17 15:33 | NUR ---
WOUND EVALUATION: Wound Consult received from Thank you, Dr. Potter, for the consult. Patient received in a Marina Bed with an IsoFlex JERONIMO mattress with low air-loss therapy initiated, awake, alert, and sedated. Patient is unable to turn independently. Avinash Score is a 13. Past Medical History: Extreme anxiety, migraine headaches, hormone deficiency, hypothyroidism, hypertension, Afib. Recent Labs: Wbc 10.0,Rbc 3.09,Hgb 7.3,Hct 22.0,Platelet count 352,Sodium 134,Glucose 126, POC Glucose 118, Alkaline phosphatase 123,Bnp 443,Serum total protein 5.3 ,Albumin 1.7. Microbiology: Sputum C&S negative. Intrinsic factors that delay wound healing:Afib, Severe Hypoalbuminemia, Hyperglycemia. Extrinsic factors that delay wound healing: Decreased mobility. Wound Assessment: 1. Thoracic Spine: sDTI, Around T3-T12. Site has 90% dark discoloration under the skin, 10% white discoloration, Underneath a blister with wrinkly skin. Site is still evolving slowly. Surrounding tissue with blanchable redness. No odor, no drainage. Karena-wound intact. Measures 19.0 cm x 2.1 cm. Recommend: Cleanse wound with normal saline. Place moisture barrier cream onto karena-wound. Cover with foam dressing. Perform wound care daily, and as needed for dressing soiling or dislodgement. Offload site with pillows at all times. 2. Sacral Coccygeal: sDTI. Site has 90% dark discoloration under the skin, 10% white discoloration, Underneath a blister with wrinkly skin. Site is still evolving slowly. 1 small open non intact area.Surrounding tissue with blanchable redness. No odor, no drainage. Karena-wound intact. Entire site measures 9.1 cm x 9.5 cm. Non intact area measures 1.0 cm x 1.0 cm. Recommend: Cleanse wound with normal saline. Place moisture barrier cream onto karena-wounds. Apply Hydrogel to non intact area. Cover with foam dressing. Perform wound care daily, and as needed for dressing soiling or dislodgement. Offload site with pillows at all times. 3. Left Distal Posterior Forearm: Skin tear. Skin tear site now has 100% black scab. No odor, no drainage. Periwound intact. Extremity has 2+ pitting edema, hand has 3+ pitting edema. 4. Right Upper Extremity Skin tear site now has 100% black scab. No odor, no drainage. Periwound intact. Extremity has 1+ pitting edema, hand has 1+ pitting edema. Recommend: [place] sites with betadine. No dressings needed. Perform site care daily. Elevate extremities as tolerated. Also recommend: Reposition patient side to side only every 2 hours with 1 pillow support above and below sites 1 and 2 (there should be 3 pillows total, initiate turning by using a fourth pillow underneath left side for 2 hours, then rotate under right side for 2 hours,repeat q 2h). Off-load pressure areas with pillows for pressure re-distribution. Offload, elevate and float bilateral heels with 1 pillow lengthwise under each extremity. Perform skin care and monitor skin integrity Q shift. Use moisture barrier cream on buttocks and other moisture susceptible areas QID and as needed for soiling. Place patient on a P500 low air-loss mattress.
[2022-09-17] MEDS: CEFEPIME 2 GM in D5W 100 ML IV SCH (20:28)
[2022-09-18] VITALS (35 sets, daily range): BP systolic 89–153
[2022-09-18 06:14] LABS: BASOPHILS # (AUTO) 0.1 K/uL (0.0-0.2); BASOPHILS % (AUTO) 0.5 % (0.0-2.0); EOSINOPHILS # (AUTO) 0.3 K/uL (0.0-0.4); EOSINOPHILS % (AUTO) 2.2 % (0.0-4.0); HEMOGLOBIN 7.7 g/dL (12.0-16.0); LYMPHOCYTES # (AUTO) 2.3 K/uL (1.0-5.5); LYMPHOCYTES % (AUTO) 20.3 % (20.5-51.5); MEAN CORPUSCULAR HEMOGLOBIN 23 pg (27-31); MEAN CORPUSCULAR HGB CONC 32 % (32-36); MEAN CORPUSCULAR VOLUME 72 fL (79.0-98.0); MONOCYTES # (AUTO) 0.8 K/uL (0.0-1.0); MONOCYTES % (AUTO) 6.7 % (1.7-9.3); NEUTROPHILS % (AUTO) 70.3 % (40.0-70.0); PLATELET COUNT (AUTO) 355 K/uL (130-430); RED BLOOD CELL COUNT(AUTO) 3.33 MIL/uL (4.2-6.2); RED CELL DISTRIBUTION WIDTH 37.4 % (9.0-15.0); WHITE BLOOD COUNT (AUTO) 11.4 K/uL (4.8-10.8)
[2022-09-18] MEDS: LEVOTHYROXINE SODIUM 0.1 MG TABLET GT SCH (06:15)
[2022-09-18 06:48] LABS: ANION GAP 7 (5-15); CALCIUM 9.4 mg/dL (8.4-11.0); CHLORIDE 105 mmol/L (98-107); GLUCOSE 111 mg/dL (70-99); UREA NITROGEN, BLOOD 13 mg/dL (8-21)
--- NOTE | 2022-09-18 07:53 | NUR ---
RT NOTES Coordinated with RN, vent to CPAP 5 PS 10. No adverse reactions noted. Will monitor pt.
--- NOTE | 2022-09-18 08:18 | NUR ---
Opening Note: Patient is a 82 year old female that was admitted 08/23/22 for dx of new onset seizure. CC- lives with and was witnessed having a seizure, she was taken to E.D and admitted to the [facility] floor. PMHX: anxiety, migraine headaches, hormone deficiency, hypothyroidism, HTN, afib- amidarone at home. 08/29- CTA of chest- showing PNA, CHF, CAD. 09/11- sent to icu and intubated for airway protection by Dr. Vallejo. Picc line to ARCELIA- intact, patent, dressing CDI. IVF- off, precedex titrated off at 0600 for CPAP trials. Intubated cough and gag present, NSR on tele monitor, 7.5/21cm, Vent- AC20, 350, +5, 30%. Boyer inserted 08/28- in place draining to gravity, intact. No BM noted per noc. , G-tube in place- running TF vital AF 1.2 at 50cc/hr (goal), FWF 100q6h. Skin- scab- nose, sacrum and spine- DTI. accuchecks noted. Will update family throughout shift.
--- NOTE | 2022-09-18 08:29 | NUR ---
RT NOTES Dr Johan marie, aware that this is pt's 2nd intubation during this admission. Order for CPAP to be done for 4 hours today.
[2022-09-18] MEDS: ENOXAPARIN SODIUM 80 MG/0.8 ML SYRINGE SUBCUT SCH ×2 (08:44→21:01)
[2022-09-18] MEDS: ASPIRIN 81 MG TAB.CHEW GT SCH (08:45)
[2022-09-18] MEDS: CARVEDILOL 6.25 MG TABLET (COREG) GT SCH ×2 (08:45→21:01)
[2022-09-18] MEDS: POTASSIUM CHLORIDE 20 MEQ/PKT PACKET GT SCH (08:45)
[2022-09-18] MEDS: FERROUS SULFATE 325 MG TABLET.DR GT SCH ×2 (08:45→21:01)
[2022-09-18] MEDS: PANTOPRAZOLE SODIUM 40 MG/VIAL (PROTONIX) IVP SCH (08:46)
[2022-09-18] MEDS: AMIODARONE HCL 200 MG TABLET GT SCH (08:46)
[2022-09-18] MEDS: FUROSEMIDE 40 MG/4 ML VIAL IVP SCH (09:20)
--- NOTE | 2022-09-18 09:33 | NUR ---
Nutrition F/U RD reviewed pts current EMR including diet hx, physician notes, nursing notes, pertinent labs/meds/procedures, care trends and care activity. Subjective Information: 09/06: Pt extubated 09/11: Rapid response called and pt intubated and sent to ICU bed 2 09/13: S/P PEG placement 09/14:Nutrition Consult received 09/13/22 1205 for TF rec 09/18: Nutrition Consult recd 09/17/22 1705 for DTI x 2, diabetic and tube feeding. RD attended ICU rounds and s/w primary RN. She said pt is on CPAP currently, the plan is for her to be on for 4 hours today and maybe extubate. Pt is experiencing some edema, which one-time Lasix has been ordered. Pt has DTIs. Pt is tolerating 50mL/hr well, w/ no residuals. RN said pt has not had any BM last night. Per EMR review: Joe is being documented, abd soft, distended w/ active bowel sounds. Current Diet Order/Nutrition Support: Vital AF 1.2 at 50 ml/hr, Free Water Flush: 50 q6h via GT x5 days & Joe BID x 14 days % PO intake: NPO Last BM: x1 09/12 (4 days ago) Estimated Energy Expenditure (kcals/day) 1199 (PSU 2002 d/t vent/ICU status; Tmax: 36.9'C, Ve: 8.8) Estimated Protein Required (g/day) 94-125 (1.5-2 gm/kg CBW d/t sepsis, critical illness) Estimated Fluid Required (l/day) Refer to MD (CHF) Problem/Etiology/Signs/Symptoms * Suboptimal nutrient intakes R/T decreased appetite AEB pt report of decreased PO intake and documentation. *Ongoing * Inadequate EN support R/T metabolic demands AEB no current infusing EN support. *Resolved Expected Outcomes/Goals EN tolerated at goal rate, EN provides >95% estimated nutritional needs, improvements in skin integrity, nutrition-related labs trending WNL, weight maintenance, BM q 1-3 days Dietitian Recommendations * Continue Vital AF 1.2 at 50 ml/hr (goal) via GT Provides: 1440 kcal/day, 90 gm protein/day, and 973 ml free water/day Meets: 120% of estimated caloric needs and 96% of lower end of estimated protein needs * Continue Joe BID (provides 180 kcal and 5 g PRO) * Recommend MVI, 500mg VIT C, 220mg ZnSO4 x 14 days, Joe BID for wounds * Please consult RD if/when pt is extubated to re-assess nutritional needs Follow up Moderate Risk: F/U within 3-5 days GS, MPH, RD
--- NOTE | 2022-09-18 09:35 | NUR ---
Dietitian Recommendations * Continue Vital AF 1.2 at 50 ml/hr (goal) via GT Provides: 1440 kcal/day, 90 gm protein/day, and 973 ml free water/day Meets: 120% of estimated caloric needs and 96% of lower end of estimated protein needs * Continue Joe BID (provides 180 kcal and 5 g PRO) * Recommend MVI, 500mg VIT C, 220mg ZnSO4 x 14 days * Please consult RD if/when pt is extubated to re-assess nutritional needs GS, MPH, RD Please refer to Nutrition F/U for further details. Thanks!
--- NOTE | 2022-09-18 09:37 | NUR ---
Pulmo Rounds: Plan with Dr. Prado- give lasix 40mg for swelling, CPAP plan- 4 hours today. No extubation yet due to swelling.
--- NOTE | 2022-09-18 12:20 | NUR ---
RT NOTES end of cpap Vent back to AC, per 4 hour SBT order.
[2022-09-18] MEDS: CEFEPIME 2 GM in D5W 100 ML IV SCH (21:01)
[2022-09-19] VITALS (35 sets, daily range): BP systolic 106–163
[2022-09-19 07:06] LABS: BASOPHILS % (AUTO) 0.4 % (0.0-2.0); EOSINOPHILS # (AUTO) 0.1 K/uL (0.0-0.4); EOSINOPHILS % (AUTO) 1.3 % (0.0-4.0); HEMATOCRIT 27.7 % (36-48); HEMOGLOBIN 8.8 g/dL (12.0-16.0); LYMPHOCYTES # (AUTO) 2.3 K/uL (1.0-5.5); LYMPHOCYTES % (AUTO) 23.4 % (20.5-51.5); MEAN CORPUSCULAR HEMOGLOBIN 23 pg (27-31); MEAN CORPUSCULAR HGB CONC 32 % (32-36); MEAN CORPUSCULAR VOLUME 73 fL (79.0-98.0); MONOCYTES # (AUTO) 0.6 K/uL (0.0-1.0); MONOCYTES % (AUTO) 5.7 % (1.7-9.3); NEUTROPHILS # (AUTO) 6.7 K/uL (1.8-7.7); NEUTROPHILS % (AUTO) 69.2 % (40.0-70.0); PLATELET COUNT (AUTO) 430 K/uL (130-430); RED BLOOD CELL COUNT(AUTO) 3.81 MIL/uL (4.2-6.2); RED CELL DISTRIBUTION WIDTH 37.2 % (9.0-15.0); WHITE BLOOD COUNT (AUTO) 9.7 K/uL (4.8-10.8)
[2022-09-19] MEDS: LEVOTHYROXINE SODIUM 0.1 MG TABLET GT SCH (07:11)
[2022-09-19 07:16] LABS: ANION GAP 10 (5-15); CALCIUM 9.6 mg/dL (8.4-11.0); CHLORIDE 104 mmol/L (98-107); CREATININE 0.58 mg/dL (0.55-1.30); GLUCOSE 109 mg/dL (70-99); UREA NITROGEN, BLOOD 18 mg/dL (8-21)
--- NOTE | 2022-09-19 07:30 | NUR ---
Patient is a 82 year old female that was admitted 08/23/22 for dx of new onset seizure. CC- lives with and was witnessed having a seizure, she was taken to E.D and admitted to the [facility] floor. PMHX: anxiety, migraine headaches, hormone deficiency, hypothyroidism, HTN, afib- amidarone at home. 08/29- CTA of chest- showing PNA, CHF, CAD. 09/11- sent to icu and intubated for airway protection by Dr. Vallejo. Picc line to ARCELIA- intact, patent, dressing CDI. IVF- off, precedex titrated off for CPAP trials. Intubated cough and gag present, NSR on tele monitor, 7.5/21cm, Vent- AC20, 350, +5, 30%. Boyer inserted 08/28- in place draining to gravity, intact. No BM noted per noc. , G-tube in place- running TF vital AF 1.2 at 50cc/hr (goal), FWF 100q4h. Skin- scab- nose, sacrum and spine- DTI. accuchecks noted. Will update family throughout shift.
--- NOTE | 2022-09-19 07:40 | NUR ---
RT NOTES start cpap Coordinated with Rn, pt is awake, appears alert. Vent to CPAP 5 PS 10 per daily SBT. No adverse reactions noted. Will monitor pt.
[2022-09-19] MEDS: POTASSIUM CHLORIDE 20 MEQ/PKT PACKET GT SCH (08:27)
[2022-09-19] MEDS: FUROSEMIDE 40 MG/4 ML VIAL IVP SCH (08:27)
[2022-09-19] MEDS: AMIODARONE HCL 200 MG TABLET GT SCH (08:27)
[2022-09-19] MEDS: PANTOPRAZOLE SODIUM 40 MG/VIAL (PROTONIX) IVP SCH (08:27)
[2022-09-19] MEDS: FERROUS SULFATE 325 MG TABLET.DR GT SCH ×2 (08:27→20:47)
[2022-09-19] MEDS: ASPIRIN 81 MG TAB.CHEW GT SCH (08:27)
[2022-09-19] MEDS: CARVEDILOL 6.25 MG TABLET (COREG) GT SCH ×2 (08:27→20:46)
[2022-09-19] MEDS: ENOXAPARIN SODIUM 80 MG/0.8 ML SYRINGE SUBCUT SCH ×2 (08:28→20:47)
--- NOTE | 2022-09-19 11:40 | NUR ---
PAGED MD LÓPEZ FOR ADDITIONAL ORDERS, POSSIBLE EXTUBATION AND/OR ABG, CXR. PT ON CPAP TRIAL FOR ABOUT 4 HOURS NOW. VSS. NAD NOTED. WILL CONT TO MONITOR PT.
--- NOTE | 2022-09-19 11:43 | NUR ---
RT NOTES end cpap Vent back to AC, pt tolerated 4 hours of CPAP. RSBI 38.
--- NOTE | 2022-09-19 12:29 | NUR ---
CALL BACK FROM MD LÓPEZ. PLAN IS TO PLACE PATIENT BACK ON AC MODE, TOMORROW AT 8 AM, CPAP FOR 30 MINS, REPEAT ABG AND PLAN TO EXTUBATE WHEN MD LÓPEZ RETURNS FOR ROUNDS.
[2022-09-19] MEDS: CEFEPIME 2 GM in D5W 100 ML IV SCH (20:47)
[2022-09-20] VITALS (27 sets, daily range): BP systolic 120–162
[2022-09-20 06:27] LABS: BASOPHILS # (AUTO) 0.1 K/uL (0.0-0.2); BASOPHILS % (AUTO) 0.5 % (0.0-2.0); EOSINOPHILS # (AUTO) 0.1 K/uL (0.0-0.4); EOSINOPHILS % (AUTO) 1.4 % (0.0-4.0); HEMATOCRIT 29.3 % (36-48); HEMOGLOBIN 9.5 g/dL (12.0-16.0); LYMPHOCYTES # (AUTO) 2.6 K/uL (1.0-5.5); LYMPHOCYTES % (AUTO) 25.4 % (20.5-51.5); MEAN CORPUSCULAR HEMOGLOBIN 23 pg (27-31); MEAN CORPUSCULAR HGB CONC 32 % (32-36); MEAN CORPUSCULAR VOLUME 72 fL (79.0-98.0); MONOCYTES # (AUTO) 0.6 K/uL (0.0-1.0); MONOCYTES % (AUTO) 6.2 % (1.7-9.3); NEUTROPHILS # (AUTO) 6.8 K/uL (1.8-7.7); NEUTROPHILS % (AUTO) 66.5 % (40.0-70.0); PLATELET COUNT (AUTO) 457 K/uL (130-430); RED BLOOD CELL COUNT(AUTO) 4.06 MIL/uL (4.2-6.2); RED CELL DISTRIBUTION WIDTH 37.3 % (9.0-15.0); WHITE BLOOD COUNT (AUTO) 10.2 K/uL (4.8-10.8)
[2022-09-20 06:45] LABS: ANION GAP 7 (5-15); CALCIUM 9.4 mg/dL (8.4-11.0); CHLORIDE 104 mmol/L (98-107); CREATININE 0.65 mg/dL (0.55-1.30); GLUCOSE 111 mg/dL (70-99); UREA NITROGEN, BLOOD 20 mg/dL (8-21)
[2022-09-20] MEDS: LEVOTHYROXINE SODIUM 0.1 MG TABLET GT SCH (06:45)
--- NOTE | 2022-09-20 08:00 | NUR ---
DONNA MOREIRA RN IS IN CHARGE OF THIS PT/PT HAS BEEN ON CPAP SINCE 724, ABG RESULTS ARE GOOD, PT TOLERATING CPAP WELL//PT OTHERWISE IN ZERO DISTRESS, FOLLOWING COMMANDS BUT HARD OF HEARING//MW
--- NOTE | 2022-09-20 08:22 | NUR ---
rt notes 0714 Placed pt on CPAP 5, PS10 30% FIO2. Pt saturating 97%. 0748 ABG on CPAP drawn. 0820 RSBI 37. Pt unable to do NIF, cant follow commands. will wait for MD Prado's order. will cont to monitor pt.
[2022-09-20] MEDS: ENOXAPARIN SODIUM 80 MG/0.8 ML SYRINGE SUBCUT SCH ×3 (09:00→23:03)
[2022-09-20] MEDS: FUROSEMIDE 40 MG/4 ML VIAL IVP SCH (09:57)
[2022-09-20] MEDS: PANTOPRAZOLE SODIUM 40 MG/VIAL (PROTONIX) IVP SCH (09:58)
[2022-09-20] MEDS: POTASSIUM CHLORIDE 20 MEQ/PKT PACKET GT SCH (09:58)
[2022-09-20] MEDS: AMIODARONE HCL 200 MG TABLET GT SCH (09:59)
[2022-09-20] MEDS: CARVEDILOL 6.25 MG TABLET (COREG) GT SCH ×2 (09:59→23:01)
[2022-09-20] MEDS: FERROUS SULFATE 325 MG TABLET.DR GT SCH ×2 (10:00→23:01)
[2022-09-20] MEDS: ASPIRIN 81 MG TAB.CHEW GT SCH (10:00)
[2022-09-20] MEDS: ACETAMINOPHEN 325 MG TABLET GT PRN (10:45)
--- NOTE | 2022-09-20 11:15 | NUR ---
PER MD LÓPEZ, BASED ON PATIENT'S PRESENTATION AND ABG RESULTS, OK TO EXTUBATE TO COOL AERESOL. RT KIT UPDATED ON PLAN. ALSO, DONNA HAYES UPDATED PT TO BE EXTUBATED. VSS. NAD NOTED.
--- NOTE | 2022-09-20 11:43 | NUR ---
rt notes 1143 PER MD LÓPEZ, EXTUBATE PT AND PLACED ON COOL AEROSOL. PT ON 5L COOL AEROSOL, 28% FIO2. PT SATURATING 98%. COACHED PT TO DO DEEP BREATHING, PRIOR AND POST EXTUBATION SXN'D PT. WILL CONT TO MONITOR PT.
--- NOTE | 2022-09-20 17:00 | NUR ---
RT NOTES 1700 Switched pt to 2LNC, pt saturating 96%. pt kept on removing CA mask. will cont to monitor pt.
--- NOTE | 2022-09-20 17:25 | NUR ---
ST EVALUATION COMPLETED. ST TX NOT INDICATED AT THIS TIME. RECOMMEND PO DIET OF PUREE/HONEY THICK LIQUID FOR ORAL GRATIFICATION. 1:1 FEEDER AND FULL ASPIRATION PRECAUTIONS.
--- NOTE | 2022-09-20 22:00 | NUR ---
LEFT HAND Wound to dorsal side of left hand bleeding. Lovenox held. Left hand cleaned and dressed with gauze dressing. Pictures taken to document wound.
[2022-09-20] MEDS: CEFEPIME 2 GM in D5W 100 ML IV SCH (23:01)
[2022-09-21] VITALS (20 sets, daily range): BP systolic 93–142
[2022-09-21] MEDS: LEVOTHYROXINE SODIUM 0.1 MG TABLET GT SCH (06:35)
--- NOTE | 2022-09-21 07:05 | NUR ---
rt notes 0705 Titrated o2 to 1LNC. pt saturating 98%. HR 71. RR 24. no distress noted. will cont to monitor pt.
[2022-09-21 07:25] LABS: BASOPHILS % (AUTO) 0.2 % (0.0-2.0); EOSINOPHILS # (AUTO) 0.1 K/uL (0.0-0.4); EOSINOPHILS % (AUTO) 0.5 % (0.0-4.0); HEMATOCRIT 26.2 % (36-48); HEMOGLOBIN 8.4 g/dL (12.0-16.0); LYMPHOCYTES # (AUTO) 2.1 K/uL (1.0-5.5); LYMPHOCYTES % (AUTO) 15.1 % (20.5-51.5); MEAN CORPUSCULAR HEMOGLOBIN 23 pg (27-31); MEAN CORPUSCULAR HGB CONC 32 % (32-36); MEAN CORPUSCULAR VOLUME 73 fL (79.0-98.0); MONOCYTES # (AUTO) 0.6 K/uL (0.0-1.0); MONOCYTES % (AUTO) 4.5 % (1.7-9.3); NEUTROPHILS # (AUTO) 11.2 K/uL (1.8-7.7); NEUTROPHILS % (AUTO) 79.7 % (40.0-70.0); PLATELET COUNT (AUTO) 408 K/uL (130-430); RED CELL DISTRIBUTION WIDTH 36.9 % (9.0-15.0); WHITE BLOOD COUNT (AUTO) 14.1 K/uL (4.8-10.8)
--- NOTE | 2022-09-21 07:30 | NUR ---
Patient is a 82 year old female that was admitted 08/23/22 for dx of new onset seizure. CC- lives with and was witnessed having a seizure, she was taken to E.D and admitted to the [facility] floor. PMHX: anxiety, migraine headaches, hormone deficiency, hypothyroidism, HTN, afib- amidarone at home. 08/29- CTA of chest- showing PNA, CHF, CAD. 09/11- sent to icu and intubated for airway protection by Dr. Vallejo. Picc line to ARCELIA- intact, patent, dressing CDI. IVF-NS @ TKO, cough and gag present, NSR on tele monitor, Boyer inserted 08/28- in place draining to gravity, intact. No BM noted per noc. , G-tube in place- running TF vital AF 1.2 at 50cc/hr (goal), FWF 100q4h. Skin- scab- nose, sacrum and spine- DTI. Will update family throughout shift.
[2022-09-21 07:54] LABS: ANION GAP 5 (5-15); CHLORIDE 106 mmol/L (98-107); CREATININE 0.66 mg/dL (0.55-1.30); GLUCOSE 140 mg/dL (70-99); UREA NITROGEN, BLOOD 22 mg/dL (8-21)
[2022-09-21] MEDS: AMIODARONE HCL 200 MG TABLET GT SCH (08:29)
[2022-09-21] MEDS: ASPIRIN 81 MG TAB.CHEW GT SCH (08:30)
[2022-09-21] MEDS: POTASSIUM CHLORIDE 20 MEQ/PKT PACKET GT SCH (08:31)
[2022-09-21] MEDS: CARVEDILOL 6.25 MG TABLET (COREG) GT SCH ×2 (08:31→21:44)
[2022-09-21] MEDS: PANTOPRAZOLE SODIUM 40 MG/VIAL (PROTONIX) IVP SCH (08:31)
[2022-09-21] MEDS: FUROSEMIDE 40 MG/4 ML VIAL IVP SCH (08:31)
[2022-09-21] MEDS: FERROUS SULFATE 325 MG TABLET.DR GT SCH ×2 (08:31→21:45)
[2022-09-21] MEDS: ENOXAPARIN SODIUM 80 MG/0.8 ML SYRINGE SUBCUT SCH ×2 (08:50→21:45)
[2022-09-21] MEDS: ACETAMINOPHEN 325 MG TABLET GT PRN (14:11)
[2022-09-21] MEDS ORDERED: FUROSEMIDE 20 MG/2 ML VIAL IVP ONE (15:45)
[2022-09-21] MEDS: CEFEPIME 2 GM in D5W 100 ML IV SCH (21:45)
[2022-09-22] VITALS (22 sets, daily range): BP systolic 125–157
[2022-09-22] MEDS: LEVOTHYROXINE SODIUM 0.1 MG TABLET GT SCH (06:21)
[2022-09-22] MEDS: ASPIRIN 81 MG TAB.CHEW GT SCH (09:07)
[2022-09-22] MEDS: AMIODARONE HCL 200 MG TABLET GT SCH (09:07)
[2022-09-22] MEDS: CARVEDILOL 6.25 MG TABLET (COREG) GT SCH ×2 (09:07→21:26)
[2022-09-22] MEDS: FERROUS SULFATE 325 MG TABLET.DR GT SCH ×2 (09:07→21:26)
[2022-09-22] MEDS: PANTOPRAZOLE SODIUM 40 MG/VIAL (PROTONIX) IVP SCH (09:08)
[2022-09-22] MEDS: POTASSIUM CHLORIDE 20 MEQ/PKT PACKET GT SCH (09:08)
[2022-09-22] MEDS: ENOXAPARIN SODIUM 80 MG/0.8 ML SYRINGE SUBCUT SCH ×2 (09:11→21:44)
[2022-09-22 09:22] LABS: BASOPHILS # (AUTO) 0.1 K/uL (0.0-0.2); BASOPHILS % (AUTO) 0.6 % (0.0-2.0); EOSINOPHILS # (AUTO) 0.3 K/uL (0.0-0.4); EOSINOPHILS % (AUTO) 1.7 % (0.0-4.0); HEMATOCRIT 26.5 % (36-48); HEMOGLOBIN 8.3 g/dL (12.0-16.0); LYMPHOCYTES # (AUTO) 3.4 K/uL (1.0-5.5); LYMPHOCYTES % (AUTO) 23.2 % (20.5-51.5); MEAN CORPUSCULAR HEMOGLOBIN 23 pg (27-31); MEAN CORPUSCULAR HGB CONC 31 % (32-36); MEAN CORPUSCULAR VOLUME 74 fL (79.0-98.0); MONOCYTES # (AUTO) 0.4 K/uL (0.0-1.0); NEUTROPHILS # (AUTO) 10.3 K/uL (1.8-7.7); NEUTROPHILS % (AUTO) 71.5 % (40.0-70.0); PLATELET COUNT (AUTO) 402 K/uL (130-430); RED BLOOD CELL COUNT(AUTO) 3.59 MIL/uL (4.2-6.2); RED CELL DISTRIBUTION WIDTH 36.8 % (9.0-15.0); WHITE BLOOD COUNT (AUTO) 14.5 K/uL (4.8-10.8)
[2022-09-22 09:36] LABS: ANION GAP 7 (5-15); CALCIUM 9.5 mg/dL (8.4-11.0); CHLORIDE 107 mmol/L (98-107); CREATININE 0.71 mg/dL (0.55-1.30); GLUCOSE 118 mg/dL (70-99); UREA NITROGEN, BLOOD 25 mg/dL (8-21)
--- NOTE | 2022-09-22 18:58 | NUR ---
0730 recieved report from outgoing RN, seen patient resting on bed no distress with oxygen 1 l/min via nc. 1000 spoke to son Golden on phone update provided 1230 spoke at bedside update given 1830 at bedside all questions answered, called RT to give breathing treatment 1900 stilla waiting RT to give breathing treatment. will report to the next shift RN.
[2022-09-22] MEDS: IPRATROPIUM/ALBUTEROL SULFATE 3 ML AMPUL.NEB (DUONEB) INH PRN (19:17)
--- NOTE | 2022-09-22 19:20 | NUR ---
RT NOTES. CALLED TO PT'S ROOM DUE TO FAMILIES REQUEST. PT'S SPO2 95% ON 1L. FAMILY MEMBER COMPLAINED OF PT'S RR AND WOB AND HOW IT WASN'T LIKE THAT YESTERDAY. PT WAS TACHYPNEIC AND HAD INCREASED WOB. AUSCULTATION REVEALED COARSE BREATH SOUNDS AND STRIDOR IN TRACHEA. GAEV PRN TX THEN PLACED ON COOL MIST AEROSOL. PT TOLERATING WELL. NO RESP. DISTRESS NOTED. WILL CONTINUE TO MONITOR. RN NOTIFIED.
--- NOTE | 2022-09-22 20:00 | NUR ---
ASSESSMENT Pt lying quiet in bed, @ bedside, concerned about pt wheezing and requesting a breathing tx for her. O2 via N/C in use @ 1 L/min O2 sat in mid to high 90's. RT at bedside giving tx. Pt arouses to name by making humming sound. Does not open eyes. PICC right upper arm dressing intact, no redness or swelling noted @ site. Boyer draining jing color urine.
[2022-09-22] MEDS: CEFEPIME 2 GM in D5W 100 ML IV SCH (21:26)
--- NOTE | 2022-09-22 21:30 | NUR ---
LEFT HAND Left hand with dressing. Dressing removed by wetting dressing with NS. Wound intact area black, no drainage noted. Area cleaned with wound welt stitch cleaner and pat dry with sterile gauze. Wound culture collected. Emollient dressing applied and wrapped with gauze.
[2022-09-23] VITALS (23 sets, daily range): BP systolic 99–166
--- NOTE | 2022-09-23 01:28 | NUR ---
RT NOTES. REASSESSMENT OF PT WAS DONE AND AUSCULTATION OF THE TRACHEA REVEALED THAT THE STRIDOR HAS BEEN CORRECTED. PT'S RR AND WOB HAS DECREASED WHILE BEING ON THE COOL MIST AEROSOL. PLACED BACK ON 1L NASAL CANNULA. NO RESP. DISTRESS NOTED. WILL CONTINUE TO MONITOR. RN NOTIFIED.
[2022-09-23] MEDS: LEVOTHYROXINE SODIUM 0.1 MG TABLET GT SCH (06:13)
[2022-09-23] MEDS: FERROUS SULFATE 325 MG TABLET.DR GT SCH ×2 (09:04→22:33)
[2022-09-23] MEDS: ASPIRIN 81 MG TAB.CHEW GT SCH (09:04)
[2022-09-23] MEDS: CARVEDILOL 6.25 MG TABLET (COREG) GT SCH ×2 (09:04→22:34)
[2022-09-23] MEDS: POTASSIUM CHLORIDE 20 MEQ/PKT PACKET GT SCH (09:05)
[2022-09-23] MEDS: AMIODARONE HCL 200 MG TABLET GT SCH (09:05)
[2022-09-23] MEDS: PANTOPRAZOLE SODIUM 40 MG/VIAL (PROTONIX) IVP SCH (09:06)
[2022-09-23] MEDS: ENOXAPARIN SODIUM 80 MG/0.8 ML SYRINGE SUBCUT SCH ×2 (09:07→22:36)
[2022-09-23] MEDS: IPRATROPIUM/ALBUTEROL SULFATE 3 ML AMPUL.NEB (DUONEB) INH PRN (11:23)
[2022-09-23] MEDS: CEFEPIME 2 GM in D5W 100 ML IV SCH (22:33)
[2022-09-23] MEDS: hydrALAZINE HCL 20 MG/ML VIAL IVP PRN (22:46)
[2022-09-24] VITALS (23 sets, daily range): BP systolic 113–170
[2022-09-24 05:40] LABS: BASOPHILS # (AUTO) 0.1 K/uL (0.0-0.2); BASOPHILS % (AUTO) 0.6 % (0.0-2.0); EOSINOPHILS # (AUTO) 0.3 K/uL (0.0-0.4); EOSINOPHILS % (AUTO) 2.3 % (0.0-4.0); HEMATOCRIT 26.2 % (36-48); LYMPHOCYTES # (AUTO) 2.4 K/uL (1.0-5.5); LYMPHOCYTES % (AUTO) 16.5 % (20.5-51.5); MEAN CORPUSCULAR HEMOGLOBIN 23 pg (27-31); MEAN CORPUSCULAR HGB CONC 31 % (32-36); MEAN CORPUSCULAR VOLUME 74 fL (79.0-98.0); MONOCYTES # (AUTO) 0.6 K/uL (0.0-1.0); MONOCYTES % (AUTO) 4.4 % (1.7-9.3); NEUTROPHILS # (AUTO) 11.3 K/uL (1.8-7.7); NEUTROPHILS % (AUTO) 76.2 % (40.0-70.0); PLATELET COUNT (AUTO) 415 K/uL (130-430); RED BLOOD CELL COUNT(AUTO) 3.56 MIL/uL (4.2-6.2); RED CELL DISTRIBUTION WIDTH 36.8 % (9.0-15.0); WHITE BLOOD COUNT (AUTO) 14.9 K/uL (4.8-10.8)
[2022-09-24 06:14] LABS: ANION GAP 6 (5-15); CALCIUM 9.3 mg/dL (8.4-11.0); CHLORIDE 111 mmol/L (98-107); CREATININE 0.77 mg/dL (0.55-1.30); GLUCOSE 125 mg/dL (70-99); UREA NITROGEN, BLOOD 29 mg/dL (8-21)
[2022-09-24] MEDS: LEVOTHYROXINE SODIUM 0.1 MG TABLET GT SCH (06:36)
[2022-09-24] MEDS: hydrALAZINE HCL 20 MG/ML VIAL IVP PRN (06:42)
[2022-09-24] MEDS: CARVEDILOL 6.25 MG TABLET (COREG) GT SCH ×2 (09:40→20:38)
[2022-09-24] MEDS: POTASSIUM CHLORIDE 20 MEQ/PKT PACKET GT SCH (09:40)
[2022-09-24] MEDS: AMIODARONE HCL 200 MG TABLET GT SCH (09:41)
[2022-09-24] MEDS: FERROUS SULFATE 325 MG TABLET.DR GT SCH ×2 (09:41→20:38)
[2022-09-24] MEDS: ASPIRIN 81 MG TAB.CHEW GT SCH (09:41)
[2022-09-24] MEDS: ENOXAPARIN SODIUM 80 MG/0.8 ML SYRINGE SUBCUT SCH ×2 (09:49→20:55)
[2022-09-24] MEDS: PANTOPRAZOLE SODIUM 40 MG/VIAL (PROTONIX) IVP SCH (09:51)
[2022-09-24] MEDS: metroNIDAZOLE 250 mg/NS 50 ML IV SCH ×2 (14:43→21:30)
--- NOTE | 2022-09-24 16:25 | NUR ---
Patient accepted at [facility] room 207B-Number for report [phone]. [facility] to transport -on will call . agreed to DC to [facility] after patient seen by Director Of Home Health Services.
--- NOTE | 2022-09-24 16:47 | NUR ---
Elisha ann from Dr. Maurer's radford.
[2022-09-24] MEDS: IPRATROPIUM/ALBUTEROL SULFATE 3 ML AMPUL.NEB (DUONEB) INH PRN (17:21)
--- NOTE | 2022-09-24 18:53 | NUR ---
Arranged to transfer to SNF, transport ETA 1999PM
--- NOTE | 2022-09-24 19:19 | NUR ---
Gave hand off report to night supervisor RN, October, pt lying in her bed, breathing on room air, O2 sat well, sinus rhythm, PICC patent, F/C patent, wound dressing dry and intact.
--- NOTE | 2022-09-24 20:00 | NUR ---
Pt. Drowsy, Ox1 with garbled speech noted. @ bedside. Updated on pt. status and transfer. SR on the scope. VSS. Will cont. to monitor.
[2022-09-24] MEDS: CEFEPIME 2 GM in D5W 100 ML IV SCH (20:38)
--- NOTE | 2022-09-24 22:05 | NUR ---
Due meds. adm. Cardiac and resp. status monitored. Report given to ABIGAIL Taylor at [facility] with all questions answered. Report given to welder 2nd shift and Pt. transferred to [facility] by [facility] in stable condition. Care endorsed.
== END 2022-09-24 22:05 | DRG 870 ==
LOC: SED 12:40 → STU 15:17 → SIC 08-28 20:58 → STU 09-07 18:39 → SIC 09-11 10:31
PROVIDERS: ADMIT General Practice; ATTEND General Practice
PROC: 30233N1 Transfusion of Nonautologous Red Blood Cells into Peripheral Vein, Percutaneous Approach (ICD-10-PCS; 2022-08-24)
PROC: 5A09357 Assistance with Respiratory Ventilation, Less than 24 Consecutive Hours, Continuous Positive Airway Pressure (ICD-10-PCS; 2022-08-28)
PROC: 5A1955Z Respiratory Ventilation, Greater than 96 Consecutive Hours (ICD-10-PCS; principal; 2022-08-29)
PROC: 0BH17EZ Insertion of Endotracheal Airway into Trachea, Via Natural or Artificial Opening (ICD-10-PCS; 2022-08-29)
PROC: 02HV33Z Insertion of Infusion Device into Superior Vena Cava, Percutaneous Approach (ICD-10-PCS; 2022-08-29)
PROC: B548ZZA Ultrasonography of Superior Vena Cava, Guidance (ICD-10-PCS; 2022-08-29)
PROC: 0BH17EZ Insertion of Endotracheal Airway into Trachea, Via Natural or Artificial Opening (ICD-10-PCS; 2022-09-11)
PROC: 0BJ08ZZ Inspection of Tracheobronchial Tree, Via Natural or Artificial Opening Endoscopic (ICD-10-PCS; 2022-09-11)
PROC: 5A1955Z Respiratory Ventilation, Greater than 96 Consecutive Hours (ICD-10-PCS; 2022-09-11)
PROC: 0DH63UZ Insertion of Feeding Device into Stomach, Percutaneous Approach (ICD-10-PCS; 2022-09-13)
DX: A41.9 Sepsis, unspecified organism (principal); J69.0 Pneumonitis due to inhalation of food and vomit; I26.99 Other pulmonary embolism without acute cor pulmonale; J96.01 Acute respiratory failure with hypoxia; R65.21 Severe sepsis with septic shock; I50.41 Acute combined systolic (congestive) and diastolic (congestive) heart failure; E44.0 Moderate protein-calorie malnutrition; E87.1 Hypo-osmolality and hyponatremia; N17.9 Acute kidney failure, unspecified; Z99.11 Dependence on respirator [ventilator] status; I82.612 Acute embolism and thrombosis of superficial veins of left upper extremity; D50.9 Iron deficiency anemia, unspecified; D75.839 Thrombocytosis, unspecified; E03.9 Hypothyroidism, unspecified; F41.9 Anxiety disorder, unspecified; G40.909 Epilepsy, unspecified, not intractable, without status epilepticus; G90.8 Other disorders of autonomic nervous system; I11.0 Hypertensive heart disease with heart failure; I34.1 Nonrheumatic mitral (valve) prolapse; I48.0 Paroxysmal atrial fibrillation; I50.9 Heart failure, unspecified; K44.9 Diaphragmatic hernia without obstruction or gangrene; R13.12 Dysphagia, oropharyngeal phase; F32.A Depression, unspecified; G43.909 Migraine, unspecified, not intractable, without status migrainosus; K21.9 Gastro-esophageal reflux disease without esophagitis; Z20.822 Contact with and (suspected) exposure to COVID-19; Z68.20 Body mass index [BMI] 20.0-20.9, adult; Z88.0 Allergy status to penicillin; Z88.2 Allergy status to sulfonamides; Z88.8 Allergy status to other drugs, medicaments and biological substances; Z79.82 Long term (current) use of aspirin; Z79.899 Other long term (current) drug therapy; G90.9 Disorder of the autonomic nervous system, unspecified
CPT/HCPCS: 36415; 36600; 43246; 70450-TC; 71045; 71275; 76376; 76604; 80048; 80053; 81003; 82272; 82607; 82728; 82746; 82803-TC; 82962; 83037; 83540; 83550; 83605; 83735; 83880; 84100; 84443; 84484; 85007; 85025; 85027; 85379; 85384; 85610-TC; 85730-TC; 86140; 86886; 86900; 86901; 86920; 87040; 87070-TC; 87075-TC; 87081; 87205-TC; 92610-GN; 93005; 93306; 93970; 93971; 94002; 94003; 94640; 94660; 94760; 95816; 96365; 96368; 97110-GP; 97112-GP; 97116-GP; 97530-GP; 99291; C9113; G0378; J0122; J0360; J0692; J1450; J1644; J1650; J1940; J1956; J2060; J2250; J2543; J2704; J2916; J3010; J3370; J3480; J3490; J7050; J7060; J7613; P9021; Q9967

== ENCOUNTER 2022-10-03 15:06 | Emergency (ER) | payer OTHER, MEDICARE ==
[~2022-10-03] VITALS: Ht 162.6 cm; Wt 72.6 kg
[~2022-10-03 15:06] MED LIST changes: +BUSP10TA3 PO; -CEPH250C PO; +HYDR-3927 PO; -LORA-259 PO
[2022-10-03 15:18] VITALS: BP_SYST 124
[2022-10-03 16:24] LABS: BASOPHILS % (AUTO) 0.6 % (0.0-2.0); EOSINOPHILS # (AUTO) 0.3 K/uL (0.0-0.4); EOSINOPHILS % (AUTO) 4.4 % (0.0-4.0); HEMATOCRIT 23.7 % (36-48); HEMOGLOBIN 7.7 g/dL (12.0-16.0); LYMPHOCYTES # (AUTO) 2.5 K/uL (1.0-5.5); MEAN CORPUSCULAR HEMOGLOBIN 24 pg (27-31); MEAN CORPUSCULAR HGB CONC 32 % (32-36); MEAN CORPUSCULAR VOLUME 75 fL (79.0-98.0); MONOCYTES # (AUTO) 0.4 K/uL (0.0-1.0); MONOCYTES % (AUTO) 4.9 % (1.7-9.3); NEUTROPHILS # (AUTO) 4.2 K/uL (1.8-7.7); NEUTROPHILS % (AUTO) 56.1 % (40.0-70.0); PLATELET COUNT (AUTO) 601 K/uL (130-430); RED BLOOD CELL COUNT(AUTO) 3.18 MIL/uL (4.2-6.2); WHITE BLOOD COUNT (AUTO) 7.5 K/uL (4.8-10.8)
[2022-10-03 16:33] LABS: ALANINE AMINOTRANSFERASE 45 U/L (12-78); ALBUMIN 1.6 g/dL (3.4-4.8); ANION GAP 6 (5-15); ASPARTATE AMINOTRANSFERASE 44 U/L (10-37); C-REACTIVE PROTEIN QUANT 2.1 mg/dL (0-0.5); CALCIUM 8.2 mg/dL (8.4-11.0); CHLORIDE 101 mmol/L (98-107); CREATININE 0.43 mg/dL (0.55-1.30); GLUCOSE 105 mg/dL (70-99); TOTAL BILIRUBIN 0.2 mg/dL (0.0-1.0); UREA NITROGEN, BLOOD 12 mg/dL (8-21)
[2022-10-03] MEDS ORDERED: ACETAMINOPHEN 650 MG/20.3 ML UDC PO ONE (18:00)
[2022-10-03 22:10] VITALS: BP_SYST 158
== END 2022-10-03 22:11 ==
LOC: SED 15:06
DX: R22.33 Localized swelling, mass and lump, upper limb, bilateral (principal); K21.9 Gastro-esophageal reflux disease without esophagitis; I10 Essential (primary) hypertension; Z88.0 Allergy status to penicillin; Z88.1 Allergy status to other antibiotic agents; Z79.899 Other long term (current) drug therapy
CPT/HCPCS: 36415; 71045; 80053; 83605; 85025; 86140; 93970; 93971; 99285

== ENCOUNTER 2022-12-24 16:08 | Inpatient (IN) | payer OTHER, MEDICARE ==
[~2022-12-24] VITALS: Ht 167.6 cm; Wt 60.8 kg
[~2022-12-24 16:08] MED LIST changes: +AMIO200T66 GT; -AMIO200T66 PO; +ASPI-1155 GT; -ASPI-1155 PO; +BUSP10TA3 GT; -BUSP10TA3 PO; +FIORICET GT; -FIORICET PO; +HYDR-3927 GT; -HYDR-3927 PO; +LEVO100T GT; -LEVO100T PO; +NOR10 GT; -NOR10 PO; +VALS320T2 GT; -VALS320T2 PO; +VERA180T59 GT; -VERA180T59 PO
[2022-12-24 16:52] VITALS: BP_SYST 135; PULSE 74; RESP 17; TEMP 97.6; O2SAT 97
[2022-12-24] MEDS ORDERED: VANCOMYCIN HCL 1,000 MG in NS 250 ML IV ONE (18:30)
[2022-12-24 19:11] LABS: BASOPHILS # (AUTO) 0.1 K/uL (0.0-0.2); BASOPHILS % (AUTO) 0.4 % (0.0-2.0); EOSINOPHILS # (AUTO) 0.3 K/uL (0.0-0.4); EOSINOPHILS % (AUTO) 1.4 % (0.0-4.0); HEMATOCRIT 28.6 % (36-48); HEMOGLOBIN 9.3 g/dL (12.0-16.0); LYMPHOCYTES # (AUTO) 1.9 K/uL (1.0-5.5); LYMPHOCYTES % (AUTO) 10.4 % (20.5-51.5); MEAN CORPUSCULAR HEMOGLOBIN 26 pg (27-31); MEAN CORPUSCULAR HGB CONC 32 % (32-36); MEAN CORPUSCULAR VOLUME 79 fL (79.0-98.0); MONOCYTES # (AUTO) 0.8 K/uL (0.0-1.0); MONOCYTES % (AUTO) 4.4 % (1.7-9.3); NEUTROPHILS # (AUTO) 14.9 K/uL (1.8-7.7); NEUTROPHILS % (AUTO) 83.4 % (40.0-70.0); PLATELET COUNT (AUTO) 351 K/uL (130-430); RED BLOOD CELL COUNT(AUTO) 3.62 MIL/uL (4.2-6.2); RED CELL DISTRIBUTION WIDTH 19.5 % (9.0-15.0); WHITE BLOOD COUNT (AUTO) 17.9 K/uL (4.8-10.8)
[2022-12-24 19:18] LABS: BILIRUBIN,URINE NEGATIVE (NEGATIVE); BLOOD, URINE 1+ (NEGATIVE); CLARITY/URINE CLEAR (CLEAR); COLOR,URINE YELLOW (YELLOW); GLUCOSE,URINE NEGATIVE (NEGATIVE); KETONES,URINE NEGATIVE (NEGATIVE); NITRITE, URINE NEGATIVE (NEGATIVE); PH,URINE 6.5 (5.0-8.0); PROTEIN URINE TRACE (NEGATIVE); UROBILINOGEN,URINE 0.2 (0.2-1.0)
[2022-12-24 19:20] LABS: LEUKOCYTE ESTERASE ,URINE 1+ (NEGATIVE)
[2022-12-24 19:21] LABS: BACTERIA,URINE FEW /HPF (None Seen); MUCUS,URINE None Seen /LPF (None Seen); RBC,URINE 0-3 /HPF (0-3)
[2022-12-24 19:22] LABS: ALANINE AMINOTRANSFERASE 28 U/L (12-78); ALBUMIN 2.3 g/dL (3.4-4.8); ANION GAP 5 (5-15); ASPARTATE AMINOTRANSFERASE 45 U/L (10-37); CALCIUM 8.9 mg/dL (8.4-11.0); CHLORIDE 84 mmol/L (98-107); CREATININE 0.56 mg/dL (0.55-1.30); GLUCOSE 99 mg/dL (70-99); TOTAL BILIRUBIN 0.5 mg/dL (0.0-1.0); UREA NITROGEN, BLOOD 28 mg/dL (8-21)
[2022-12-24] MEDS ORDERED: VANCOMYCIN HCL 1000 MG/VIAL IV ONE (19:32)
[2022-12-24] MEDS ORDERED: cefTRIAXone 1 GM IVPB PREMIX 50 ML IV ONE (19:45)
[2022-12-24] MEDS ORDERED: DOCUSATE SODIUM 100 MG CAPSULE PO PRN (20:00)
[2022-12-24] MEDS ORDERED: ACETAMINOPHEN 325 MG TABLET PO PRN ×2 (20:00→20:30)
[2022-12-24] MEDS ORDERED: MUPIROCIN 2% TOPICAL OINTMENT 22 GM NS PRN (20:00)
[2022-12-24] MEDS ORDERED: MAGNESIUM SULFATE 50 ML IV PRN (20:00)
[2022-12-24] MEDS ORDERED: ZOLPIDEM TARTRATE 5 MG TABLET PO PRN (20:00)
[2022-12-24] MEDS ORDERED: MORPHINE 2 MG/ML INJ. SYRINGE IVP PRN (20:00)
[2022-12-24] MEDS ORDERED: POTASSIUM CHLORIDE 20 MEQ TAB.PRT.SR PO PRN (20:00)
[2022-12-24] MEDS ORDERED: ONDANSETRON HCL 4 MG/2 ML VIAL IVP PRN (20:00)
[2022-12-24] MEDS ORDERED: ACET325C5 GT (20:25)
[2022-12-24] MEDS ORDERED: ACET-73 GT (20:27)
[2022-12-24] MEDS ORDERED: CLIN-142 GT (20:29)
[2022-12-24] MEDS ORDERED: BISA10SU61 RC (20:31)
[2022-12-24] MEDS ORDERED: FURO-150 GT (20:41)
[2022-12-24] MEDS ORDERED: CARV6.2554 GT (20:41)
[2022-12-24] MEDS ORDERED: MELA5TAB12 GT (20:42)
[2022-12-24] MEDS ORDERED: MOM GT (20:44)
[2022-12-24] MEDS ORDERED: PANT40SU2 GT (20:45)
[2022-12-24] MEDS ORDERED: POTA20PA30 GT (20:49)
[2022-12-24] MEDS ORDERED: TRAM50TA2 GT (20:50)
[2022-12-24] MEDS ORDERED: ASCO500T20 GT (20:50)
[2022-12-24] MEDS: APIXABAN 2.5 MG TABLET PO SCH (21:00)
[2022-12-24 22:58] VITALS: BP_SYST 130; PULSE 70; RESP 17; TEMP 101.3
[2022-12-24] MEDS: NACL 0.9% 1,000 ML IV SCH (23:30)
[2022-12-25] VITALS (7 sets, daily range): BP systolic 110–186; PULSE 61–88; RESP 15–18; TEMP 97.3–98.4; O2SAT 93–97
[2022-12-25] MEDS: LORazepam 2 MG/ML VIAL IVP PRN ×2 (00:17→23:14)
[2022-12-25] MEDS: MORPHINE 2 MG/ML INJ. SYRINGE IVP PRN (04:45)
[2022-12-25 05:21] LABS: BASOPHILS # (AUTO) 0.1 K/uL (0.0-0.2); BASOPHILS % (AUTO) 0.4 % (0.0-2.0); EOSINOPHILS # (AUTO) 0.1 K/uL (0.0-0.4); EOSINOPHILS % (AUTO) 0.8 % (0.0-4.0); HEMATOCRIT 27.7 % (36-48); HEMOGLOBIN 8.9 g/dL (12.0-16.0); LYMPHOCYTES # (AUTO) 1.8 K/uL (1.0-5.5); LYMPHOCYTES % (AUTO) 11.8 % (20.5-51.5); MEAN CORPUSCULAR HEMOGLOBIN 26 pg (27-31); MEAN CORPUSCULAR HGB CONC 32 % (32-36); MEAN CORPUSCULAR VOLUME 79 fL (79.0-98.0); MONOCYTES # (AUTO) 0.6 K/uL (0.0-1.0); MONOCYTES % (AUTO) 4.1 % (1.7-9.3); NEUTROPHILS # (AUTO) 12.9 K/uL (1.8-7.7); NEUTROPHILS % (AUTO) 82.9 % (40.0-70.0); PLATELET COUNT (AUTO) 362 K/uL (130-430); RED BLOOD CELL COUNT(AUTO) 3.51 MIL/uL (4.2-6.2); RED CELL DISTRIBUTION WIDTH 19.1 % (9.0-15.0); WHITE BLOOD COUNT (AUTO) 15.5 K/uL (4.8-10.8)
[2022-12-25 05:40] LABS: ANION GAP 6 (5-15); CHLORIDE 88 mmol/L (98-107); CREATININE 0.54 mg/dL (0.55-1.30); GLUCOSE 101 mg/dL (70-99); UREA NITROGEN, BLOOD 21 mg/dL (8-21)
[2022-12-25] MEDS: amLODIPine BESYLATE 10 MG TABLET PO SCH (08:40)
[2022-12-25] MEDS: APIXABAN 2.5 MG TABLET PO SCH ×2 (08:40→21:37)
[2022-12-25] MEDS: ASPIRIN 81 MG TAB.CHEW PO SCH (08:40)
[2022-12-25] MEDS: busPIRone HCL 5 MG TABLET PO SCH (08:41)
[2022-12-25] MEDS: LOSARTAN POTASSIUM 50 MG TABLET (COZAAR) PO SCH (08:41)
[2022-12-25] MEDS: AMIODARONE HCL 200 MG TABLET PO SCH (08:42)
[2022-12-25] MEDS: NACL 0.9% 1,000 ML IV SCH (08:42)
[2022-12-25] MEDS: LEVOTHYROXINE SODIUM 0.1 MG TABLET PO SCH (08:44)
[2022-12-25] MEDS ORDERED: VALSARTAN Non-Formulary 160 MG TABLET PO SCH (09:00)
[2022-12-25] MEDS: traMADol HCL HCL 50 MG TABLET (ULTRAM) PO PRN ×2 (15:10→22:05)
[2022-12-25] MEDS ORDERED: SODIUM CHLORIDE 3% *HI-ALERT* 500 ML IV ONE (18:00)
[2022-12-25] MEDS: CEFEPIME 2 GM in D5W 100 ML IV SCH (20:48)
[2022-12-25] MEDS: VANCOMYCIN HCL 1,000 MG in NS 250 ML IV SCH (21:44)
[2022-12-26 00:18] VITALS: BP_SYST 111; BP_SYST 167; PULSE 64; PULSE 75; RESP 18; TEMP 98.8; O2SAT 94
[2022-12-26 03:52] LABS: BASOPHILS # (AUTO) 0.1 K/uL (0.0-0.2); BASOPHILS % (AUTO) 0.5 % (0.0-2.0); EOSINOPHILS # (AUTO) 0.4 K/uL (0.0-0.4); EOSINOPHILS % (AUTO) 3.5 % (0.0-4.0); HEMATOCRIT 28.1 % (36-48); LYMPHOCYTES # (AUTO) 1.7 K/uL (1.0-5.5); LYMPHOCYTES % (AUTO) 14.6 % (20.5-51.5); MEAN CORPUSCULAR HEMOGLOBIN 25 pg (27-31); MEAN CORPUSCULAR HGB CONC 32 % (32-36); MEAN CORPUSCULAR VOLUME 79 fL (79.0-98.0); MONOCYTES # (AUTO) 0.9 K/uL (0.0-1.0); MONOCYTES % (AUTO) 7.6 % (1.7-9.3); NEUTROPHILS # (AUTO) 8.8 K/uL (1.8-7.7); NEUTROPHILS % (AUTO) 73.8 % (40.0-70.0); PLATELET COUNT (AUTO) 361 K/uL (130-430); RED BLOOD CELL COUNT(AUTO) 3.56 MIL/uL (4.2-6.2); RED CELL DISTRIBUTION WIDTH 19.2 % (9.0-15.0)
[2022-12-26 04:08] LABS: ALANINE AMINOTRANSFERASE 29 U/L (12-78); ALBUMIN 2.1 g/dL (3.4-4.8); ANION GAP 5 (5-15); ASPARTATE AMINOTRANSFERASE 22 U/L (10-37); CALCIUM 8.7 mg/dL (8.4-11.0); CHLORIDE 93 mmol/L (98-107); CREATININE 0.53 mg/dL (0.55-1.30); GLUCOSE 105 mg/dL (70-99); TOTAL BILIRUBIN 0.3 mg/dL (0.0-1.0); UREA NITROGEN, BLOOD 17 mg/dL (8-21)
[2022-12-26] MEDS: LORazepam 2 MG/ML VIAL IVP PRN ×2 (04:57→12:36)
[2022-12-26] MEDS: LEVOTHYROXINE SODIUM 0.1 MG TABLET PO SCH (06:44)
[2022-12-26 08:00] VITALS: BP_SYST 127; PULSE 66; RESP 18; TEMP 97.6; O2SAT 96
[2022-12-26] MEDS ORDERED: SODIUM CHLORIDE 3% *HI-ALERT* 200 ML IV SCH (08:45)
[2022-12-26] MEDS ORDERED: IPRATROPIUM/ALBUTEROL SULFATE 3 ML AMPUL.NEB (DUONEB) INH PRN (08:45)
[2022-12-26] MEDS: APIXABAN 2.5 MG TABLET PO SCH ×2 (09:46→21:13)
[2022-12-26] MEDS: ASPIRIN 81 MG TAB.CHEW PO SCH (09:56)
[2022-12-26] MEDS: amLODIPine BESYLATE 10 MG TABLET PO SCH (09:57)
[2022-12-26] MEDS: busPIRone HCL 5 MG TABLET PO SCH (09:58)
[2022-12-26] MEDS: AMIODARONE HCL 200 MG TABLET PO SCH (09:58)
[2022-12-26] MEDS: LOSARTAN POTASSIUM 50 MG TABLET (COZAAR) PO SCH (09:58)
[2022-12-26] MEDS ORDERED: SODIUM CHLORIDE 3% *HI-ALERT* 200 ML IV ONE (10:00)
[2022-12-26] MEDS: CEFEPIME 2 GM in D5W 100 ML IV SCH ×2 (10:05→21:14)
[2022-12-26] MEDS: MORPHINE 2 MG/ML INJ. SYRINGE IVP PRN (10:47)
[2022-12-26 11:21] VITALS: BP_SYST 137; PULSE 73; RESP 16; TEMP 97.6; O2SAT 93
[2022-12-26] MEDS: FLUCONAZOLE 200 mg/ NS 100 ML IV SCH (13:50)
[2022-12-26 15:11] VITALS: BP_SYST 117; PULSE 68; RESP 16; TEMP 98.9; O2SAT 97
[2022-12-26 17:17] VITALS: BP_SYST 117; PULSE 68; O2SAT 97
[2022-12-26] MEDS: VANCOMYCIN HCL 1,000 MG in NS 250 ML IV SCH (22:57)
[2022-12-27] VITALS (7 sets, daily range): BP systolic 102–131; PULSE 63–85; RESP 16–18; TEMP 96.9–98.2; O2SAT 95–99
[2022-12-27 06:01] LABS: BASOPHILS # (AUTO) 0.1 K/uL (0.0-0.2); BASOPHILS % (AUTO) 0.8 % (0.0-2.0); EOSINOPHILS # (AUTO) 0.5 K/uL (0.0-0.4); EOSINOPHILS % (AUTO) 4.5 % (0.0-4.0); HEMATOCRIT 30.5 % (36-48); HEMOGLOBIN 9.9 g/dL (12.0-16.0); LYMPHOCYTES # (AUTO) 1.7 K/uL (1.0-5.5); LYMPHOCYTES % (AUTO) 15.6 % (20.5-51.5); MEAN CORPUSCULAR HEMOGLOBIN 26 pg (27-31); MEAN CORPUSCULAR HGB CONC 33 % (32-36); MEAN CORPUSCULAR VOLUME 79 fL (79.0-98.0); MONOCYTES # (AUTO) 0.8 K/uL (0.0-1.0); MONOCYTES % (AUTO) 7.9 % (1.7-9.3); NEUTROPHILS # (AUTO) 7.6 K/uL (1.8-7.7); NEUTROPHILS % (AUTO) 71.2 % (40.0-70.0); PLATELET COUNT (AUTO) 431 K/uL (130-430); RED BLOOD CELL COUNT(AUTO) 3.87 MIL/uL (4.2-6.2); RED CELL DISTRIBUTION WIDTH 19.4 % (9.0-15.0); WHITE BLOOD COUNT (AUTO) 10.6 K/uL (4.8-10.8)
[2022-12-27] MEDS: LEVOTHYROXINE SODIUM 0.1 MG TABLET PO SCH (06:02)
[2022-12-27 06:25] LABS: ANION GAP 10 (5-15); CALCIUM 9.1 mg/dL (8.4-11.0); CHLORIDE 92 mmol/L (98-107); CREATININE 0.44 mg/dL (0.55-1.30); GLUCOSE 117 mg/dL (70-99); UREA NITROGEN, BLOOD 14 mg/dL (8-21)
[2022-12-27] MEDS: CEFEPIME 2 GM in D5W 100 ML IV SCH ×2 (08:31→20:21)
[2022-12-27] MEDS: amLODIPine BESYLATE 10 MG TABLET PO SCH (09:00)
[2022-12-27] MEDS: LOSARTAN POTASSIUM 50 MG TABLET (COZAAR) PO SCH (09:00)
[2022-12-27] MEDS ORDERED: DEXAMETHASONE SOD PHOSPHATE 4 MG/ML VIAL IVP ONE (09:15)
[2022-12-27] MEDS: busPIRone HCL 5 MG TABLET PO SCH (09:25)
[2022-12-27] MEDS: AMIODARONE HCL 200 MG TABLET PO SCH (09:25)
[2022-12-27] MEDS: ASPIRIN 81 MG TAB.CHEW PO SCH (09:25)
[2022-12-27] MEDS: APIXABAN 2.5 MG TABLET PO SCH ×2 (09:26→21:18)
[2022-12-27] MEDS: D5NS 1,000 ML IV SCH ×2 (12:29→23:33)
[2022-12-27] MEDS: BALSAM PERU/CASTOR OIL 56.7 GM OINT...G. TP SCH (12:30)
[2022-12-27] MEDS: FLUCONAZOLE 200 mg/ NS 100 ML IV SCH (12:37)
[2022-12-27] MEDS: traMADol HCL HCL 50 MG TABLET (ULTRAM) PO PRN (17:27)
[2022-12-27] MEDS: VANCOMYCIN HCL 750 MG in NS 250 ML IV SCH (21:16)
[2022-12-28 00:37] VITALS: BP_SYST 124; PULSE 60; RESP 17; TEMP 97.3; O2SAT 97
[2022-12-28] MEDS: LEVOTHYROXINE SODIUM 0.1 MG TABLET PO SCH (06:09)
[2022-12-28 07:22] LABS: BASOPHILS % (AUTO) 0.2 % (0.0-2.0); HEMOGLOBIN 9.2 g/dL (12.0-16.0); LYMPHOCYTES # (AUTO) 1.4 K/uL (1.0-5.5); LYMPHOCYTES % (AUTO) 13.1 % (20.5-51.5); MEAN CORPUSCULAR HEMOGLOBIN 26 pg (27-31); MEAN CORPUSCULAR HGB CONC 33 % (32-36); MEAN CORPUSCULAR VOLUME 79 fL (79.0-98.0); MONOCYTES # (AUTO) 0.4 K/uL (0.0-1.0); MONOCYTES % (AUTO) 3.8 % (1.7-9.3); NEUTROPHILS % (AUTO) 82.9 % (40.0-70.0); PLATELET COUNT (AUTO) 408 K/uL (130-430); RED BLOOD CELL COUNT(AUTO) 3.53 MIL/uL (4.2-6.2); RED CELL DISTRIBUTION WIDTH 19.6 % (9.0-15.0); WHITE BLOOD COUNT (AUTO) 10.8 K/uL (4.8-10.8)
[2022-12-28 07:39] LABS: ANION GAP 6 (5-15); CALCIUM 9.2 mg/dL (8.4-11.0); CHLORIDE 99 mmol/L (98-107); CREATININE 0.47 mg/dL (0.55-1.30); GLUCOSE 193 mg/dL (70-99); UREA NITROGEN, BLOOD 20 mg/dL (8-21)
[2022-12-28 08:00] VITALS: BP_SYST 142; PULSE 79; RESP 18; TEMP 97.4; O2SAT 99
[2022-12-28] MEDS: CEFEPIME 2 GM in D5W 100 ML IV SCH (08:11)
[2022-12-28] MEDS: LOSARTAN POTASSIUM 50 MG TABLET (COZAAR) PO SCH (09:12)
[2022-12-28] MEDS: busPIRone HCL 5 MG TABLET PO SCH (09:12)
[2022-12-28] MEDS: AMIODARONE HCL 200 MG TABLET PO SCH (09:13)
[2022-12-28] MEDS: amLODIPine BESYLATE 10 MG TABLET PO SCH (09:13)
[2022-12-28] MEDS: APIXABAN 2.5 MG TABLET PO SCH (09:14)
[2022-12-28] MEDS: traMADol HCL HCL 50 MG TABLET (ULTRAM) PO PRN (09:15)
[2022-12-28] MEDS: BALSAM PERU/CASTOR OIL 56.7 GM OINT...G. TP SCH (09:16)
[2022-12-28] MEDS: VANCOMYCIN HCL 750 MG in NS 250 ML IV SCH (09:16)
[2022-12-28] MEDS: ASPIRIN 81 MG TAB.CHEW PO SCH (09:16)
[2022-12-28 11:24] VITALS: BP_SYST 136; PULSE 78; RESP 16; TEMP 97.7; O2SAT 99
[2022-12-28 12:11] VITALS: BP_SYST 136; PULSE 78; RESP 18; TEMP 97.7; O2SAT 96
[2022-12-28] MEDS: LORazepam 2 MG/ML VIAL IVP PRN (12:37)
== END 2022-12-28 13:35 | DRG 871 ==
LOC: SED 16:08 → SMU 19:26 → STU 12-25 17:16 → SMU 12-28 09:57
PROVIDERS: ADMIT General Practice; ATTEND General Practice
DX: A41.9 Sepsis, unspecified organism (principal); G93.41 Metabolic encephalopathy; J69.0 Pneumonitis due to inhalation of food and vomit; E44.0 Moderate protein-calorie malnutrition; E87.1 Hypo-osmolality and hyponatremia; L03.116 Cellulitis of left lower limb; N39.0 Urinary tract infection, site not specified; D63.8 Anemia in other chronic diseases classified elsewhere; Z68.21 Body mass index [BMI] 21.0-21.9, adult; E03.9 Hypothyroidism, unspecified; E87.5 Hyperkalemia; F41.9 Anxiety disorder, unspecified; L89.159 Pressure ulcer of sacral region, unspecified stage; G47.00 Insomnia, unspecified; I50.9 Heart failure, unspecified; E11.51 Type 2 diabetes mellitus with diabetic peripheral angiopathy without gangrene; I10 Essential (primary) hypertension; Z88.0 Allergy status to penicillin; Z88.2 Allergy status to sulfonamides; Z88.8 Allergy status to other drugs, medicaments and biological substances
CPT/HCPCS: 36415; 71045; 76770; 80048; 80053; 80202; 81000; 83037; 83605; 83735; 85025; 86738; 87040; 87081; 87086; 87449; 93005; 97110-GP; 97530-GP; 99285; G0378; J0692; J0696; J1100; J1450; J2060; J2270; J3370; J3490; J7050; J7060

== ENCOUNTER 2023-01-02 18:47 | Inpatient (IN) | payer OTHER, MEDICARE ==
[~2023-01-02] VITALS: Ht 162.6 cm; Wt 58.6 kg
[2023-01-02 18:47] VITALS: BP_SYST 72
[~2023-01-02 18:47] MED LIST changes: +ACET-73 GT; +ACET325C5 GT; +ASCO500T20 GT; +BISA10SU61 RC; +CARV6.2554 GT; +CLIN-142 GT; +FURO-150 GT; +MELA5TAB12 GT; +MOM GT; +PANT40SU2 GT; +POTA20PA30 GT; +TRAM50TA2 GT
--- NOTE | 2023-01-02 18:50 | NUR ---
BROUGHT IN BY [facility], PLACED IN BED #1 AND TRIAGED. REPORT GIVEN TO ENZO
--- NOTE | 2023-01-02 18:51 | NUR ---
ER at bedside examining patient.
[2023-01-02] MEDS ORDERED: NOREPINEPHRINE BITARTRATE 4 MG in NS 246 ML IV ONE (19:00)
[2023-01-02] MEDS ORDERED: ONDANSETRON HCL 4 MG/2 ML VIAL IVP ONE (19:00)
[2023-01-02] MEDS ORDERED: NACL 0.9% 1,000 ML IV ONE ×3 (19:00→20:30)
--- NOTE | 2023-01-02 19:11 | NUR ---
PT BIB EMS FOR C/O BRADYCARDIA AND HYPOTENSION. 18 G IV STARTED IN ROUTE FLUIDS GIVEN AND ONE ROUND OF ATROPINE. PT GCS 13 RESPONSE TO VOICE, ORIENTED TO SITUATION AND WHO SHE IS NOT TO PLACE, AND PURPOSEFUL. edema noted on left leg along side with petechiae noted on pt body. pt sr shows bradycardia. pt has a g tube. pt pulses are +1. pt is on the monitor in bed 1.
--- NOTE | 2023-01-02 19:18 | NUR ---
Report received from ABIGAIL Plasencia & Franc. Will continue with POC; and, will continue to monitor VS & clinical status.
[2023-01-02] MEDS ORDERED: NOREPINEPHRINE 4 MG/4 ML VIAL IV ONE (19:27)
--- NOTE | 2023-01-02 19:31 | NUR ---
IVF NS 1000 ml bolus infusion started, followed with Zofrran 4 mg IVP; also, Levophed drip infusion started at 2 mcg/min.
[2023-01-02 19:39] LABS: BASOPHILS % (AUTO) 0.2 % (0.0-2.0); EOSINOPHILS % (AUTO) 0.3 % (0.0-4.0); HEMATOCRIT 25.4 % (36-48); HEMOGLOBIN 8.3 g/dL (12.0-16.0); LYMPHOCYTES # (AUTO) 1.1 K/uL (1.0-5.5); LYMPHOCYTES % (AUTO) 7.9 % (20.5-51.5); MEAN CORPUSCULAR HEMOGLOBIN 26 pg (27-31); MEAN CORPUSCULAR HGB CONC 33 % (32-36); MEAN CORPUSCULAR VOLUME 79 fL (79.0-98.0); MONOCYTES # (AUTO) 0.4 K/uL (0.0-1.0); MONOCYTES % (AUTO) 2.9 % (1.7-9.3); NEUTROPHILS % (AUTO) 88.7 % (40.0-70.0); PLATELET COUNT (AUTO) 388 K/uL (130-430); RED BLOOD CELL COUNT(AUTO) 3.22 MIL/uL (4.2-6.2); RED CELL DISTRIBUTION WIDTH 19.8 % (9.0-15.0); WHITE BLOOD COUNT (AUTO) 13.5 K/uL (4.8-10.8)
[2023-01-02] MEDS ORDERED: VANCOMYCIN HCL 1,000 MG in NS 250 ML IV ONE (19:45)
[2023-01-02 19:52] LABS: INR 1.2 (0.8-1.2); PROTHROMBIN TIME 12.4 SECS (9.5-12.5)
--- NOTE | 2023-01-02 19:56 | NUR ---
Boyer Catheter placement 16 Fr.
[2023-01-02 19:59] LABS: ALANINE AMINOTRANSFERASE 44 U/L (12-78); ALBUMIN 2.1 g/dL (3.4-4.8); ANION GAP 5 (5-15); ASPARTATE AMINOTRANSFERASE 66 U/L (10-37); CHLORIDE 95 mmol/L (98-107); CREATININE 1.04 mg/dL (0.55-1.30); GLUCOSE 122 mg/dL (70-99); TOTAL BILIRUBIN 0.3 mg/dL (0.0-1.0); UREA NITROGEN, BLOOD 33 mg/dL (8-21)
--- NOTE | 2023-01-02 19:59 | NUR ---
Levophed drip stopped at this time until IVF NS 2000 ml Bolus infusion complete.
--- NOTE | 2023-01-02 20:00 | NUR ---
IVF NS 1000 ml #2 Boluls infusion started.
[2023-01-02] MEDS ORDERED: INSU100V42 SUBCUT (20:02)
[2023-01-02] MEDS ORDERED: SENN8.6T19 PO (20:02)
[2023-01-02] MEDS ORDERED: FLUC200T GT (20:02)
[2023-01-02] MEDS ORDERED: DOXY100C GT (20:02)
[2023-01-02] MEDS ORDERED: ESTR0.623 GT (20:02)
[2023-01-02] MEDS ORDERED: LORA-259 PO (20:02)
--- NOTE | 2023-01-02 20:02 | NUR ---
Vancomycin 1 Gm IV infusion started.
--- NOTE | 2023-01-02 20:05 | NUR ---
PCXR done at bedside.
[2023-01-02] MEDS ORDERED: VANCOMYCIN HCL 1000 MG/VIAL IV ONE (20:10)
--- NOTE | 2023-01-02 20:12 | NUR ---
MRSA AND FUNGAL SPECIMENS COLLECTED AND SENT TO LAB.
--- NOTE | 2023-01-02 20:13 | NUR ---
Vancomycin 1 Gm IV started.
[2023-01-02] MEDS ORDERED: FUROSEMIDE 100 MG/10 ML VIAL IVP ONE (20:15)
[2023-01-02] MEDS ORDERED: CALCIUM GLUC 1 GM/100ML-NACL 100 ML IV ONE (20:15)
[2023-01-02] MEDS ORDERED: INSULIN REGULAR, HUMAN 10 UNITS/0.1 ML, 3 ML VIAL IVP ONE (20:15)
[2023-01-02] MEDS ORDERED: DEXTROSE 50% JECT 50 ML DISP.SYRIN IVP ONE (20:15)
[2023-01-02 20:44] LABS: BILIRUBIN,URINE NEGATIVE (NEGATIVE); CLARITY/URINE CLEAR (CLEAR); COLOR,URINE YELLOW (YELLOW); GLUCOSE,URINE NEGATIVE (NEGATIVE); KETONES,URINE NEGATIVE (NEGATIVE); LEUKOCYTE ESTERASE ,URINE NEGATIVE (NEGATIVE); NITRITE, URINE NEGATIVE (NEGATIVE); PH,URINE 6.5 (5.0-8.0); PROTEIN URINE 1+ (NEGATIVE)
[2023-01-02 20:46] LABS: BLOOD, URINE TRACE (NEGATIVE)
--- NOTE | 2023-01-02 21:00 | NUR ---
Levaquin 750 mg IV infusion started.
--- NOTE | 2023-01-02 21:05 | NUR ---
Bi-PAP placed on patinet by RT. Bi-PAp Settings: ST Mode, 12/, Rate 18
[2023-01-02 21:15] LABS: BACTERIA,URINE FEW /HPF (None Seen); HYALINE CASTS, URINE 0-10 /LPF (None Seen); WBC,URINE 0-3 /HPF (0-3)
[2023-01-02] MEDS ORDERED: IPRATROPIUM/ALBUTEROL SULFATE 3 ML AMPUL.NEB (DUONEB) INH PRN (21:45)
[2023-01-02] MEDS ORDERED: MORPHINE 2 MG/ML INJ. SYRINGE IVP PRN ×2 (21:45)
[2023-01-02] MEDS ORDERED: POTASSIUM CHLORIDE 20 MEQ TAB.PRT.SR PO PRN (21:45)
[2023-01-02] MEDS ORDERED: NALOXONE HCL 0.4 MG/ML AMP (NARCAN) IVP PRN ×2 (21:45)
[2023-01-02] MEDS ORDERED: MAGNESIUM SULFATE 50 ML IV PRN (21:45)
[2023-01-02] MEDS ORDERED: ONDANSETRON HCL 4 MG/2 ML VIAL IVP PRN (21:45)
[2023-01-02] MEDS ORDERED: DOCUSATE SODIUM 100 MG CAPSULE PO PRN (21:45)
[2023-01-02] MEDS ORDERED: MUPIROCIN 2% TOPICAL OINTMENT 22 GM NS PRN (21:45)
--- NOTE | 2023-01-02 21:50 | NUR ---
URINE OUTPUT: 1800 ML. Patient transferred to ICU Bed 8 in unstable condition via STEPHANIA grey, O2, RN, RT & EMT.
--- NOTE | 2023-01-02 21:50 | NUR ---
IVF NS 1000 ml #3 boluls infusion started.
--- NOTE | 2023-01-02 22:00 | NUR ---
Sloane garland in [facility] - 01/02/23 at 2208 by [email or web address] PATIENT REFUSED TORADOL INJECTION.
--- NOTE | 2023-01-02 22:00 | NUR ---
FiO2 decrease to 60% by RT.
[2023-01-02 22:25] VITALS: BP_SYST 120
[2023-01-02 22:39] VITALS: BP_SYST 139
[2023-01-02 23:00] VITALS: BP_SYST 121
[2023-01-02] MEDS: D5NS 1,000 ML IV SCH (23:07)
[2023-01-02] MEDS: LORazepam 2 MG/ML VIAL IVP PRN (23:08)
--- NOTE | 2023-01-02 23:18 | NUR ---
CONSULTATION PAGED/CALLED Reason for Consultation: Bradycardia, Resp Failure, Hyperkalemia Person Who was Notified: Jaime Consulting Physician: Dr Villalobos Banquet Set Up Person Specialty: Cardiology Ordering Physician: Dr Potter Consult called stat due to heart rate of 47.
[2023-01-02] MEDS ORDERED: DOPamine PREMIX 250 ML IV PRN (23:30)
[2023-01-02] MEDS ORDERED: ATROPINE SULFATE 1 MG/10 ML SYRINGE IVP PRN (23:30)
[2023-01-02] MEDS ORDERED: DOPamine PREMIX 250 ML IV ONE (23:36)
[2023-01-02 23:51] VITALS: BP_SYST 121
[2023-01-03] VITALS (24 sets, daily range): BP systolic 90–140
--- NOTE | 2023-01-03 00:19 | NUR ---
CONSULTATION PAGED/CALLED Reason for Consultation: Acute Resp Failure, Bradycardia, Hyperkalemia Person Who was Notified: Igor Consulting Physician: Dr Prado Puller Over Specialty: Pulmonary Ordering Physician: Dr Potter
--- NOTE | 2023-01-03 00:21 | NUR ---
CONSULTATION PAGED/CALLED Reason for Consultation: Sepsis Person Who was Notified: Marisol Consulting Physician: Dr Crabtree Net Wpf Developer Specialty: ID Ordering Physician: Dr Potter
[2023-01-03 06:28] LABS: BASOPHILS % (AUTO) 0.2 % (0.0-2.0); EOSINOPHILS % (AUTO) 0.2 % (0.0-4.0); HEMATOCRIT 29.6 % (36-48); HEMOGLOBIN 9.6 g/dL (12.0-16.0); LYMPHOCYTES # (AUTO) 1.7 K/uL (1.0-5.5); LYMPHOCYTES % (AUTO) 9.8 % (20.5-51.5); MEAN CORPUSCULAR HEMOGLOBIN 25 pg (27-31); MEAN CORPUSCULAR HGB CONC 32 % (32-36); MEAN CORPUSCULAR VOLUME 78 fL (79.0-98.0); MONOCYTES # (AUTO) 0.5 K/uL (0.0-1.0); NEUTROPHILS # (AUTO) 15.1 K/uL (1.8-7.7); NEUTROPHILS % (AUTO) 86.8 % (40.0-70.0); PLATELET COUNT (AUTO) 431 K/uL (130-430); RED CELL DISTRIBUTION WIDTH 19.7 % (9.0-15.0); WHITE BLOOD COUNT (AUTO) 17.4 K/uL (4.8-10.8)
[2023-01-03 06:55] LABS: ANION GAP 9 (5-15); CALCIUM 8.6 mg/dL (8.4-11.0); CHLORIDE 96 mmol/L (98-107); CREATININE 0.75 mg/dL (0.55-1.30); GLUCOSE 58 mg/dL (70-99); UREA NITROGEN, BLOOD 34 mg/dL (8-21)
--- NOTE | 2023-01-03 08:18 | NUR ---
CONSULTATION PAGED/CALLED Reason for Consultation: HYPONATREMIA Person Who was Notified:AVERY Consulting Physician: DR. CARTER Heel Sewer Specialty: NEPHROLOGY Ordering Physician:DR. CHAVEZ
[2023-01-03] MEDS ORDERED: FUROSEMIDE 20 MG/2 ML VIAL IVP SCH (09:00)
--- NOTE | 2023-01-03 09:00 | NUR ---
TURNED OFF DOPAMINE , VSS STABLE,
--- NOTE | 2023-01-03 09:46 | NUR ---
PATIENT OFF BIPAP BY RN FOLLOWING MD LÓPEZ'S ORDERS. PT ON 6 L NC WITH HUMIDIFICATION. NO SOB OR DISTRESS NOTED. SPO2 97%. WILL CONTINUE TO MONITOR PATIENT.
[2023-01-03] MEDS: busPIRone HCL 5 MG TABLET GT SCH (10:22)
[2023-01-03] MEDS: ASPIRIN 81 MG TAB.CHEW GT SCH (10:22)
[2023-01-03] MEDS: LEVOTHYROXINE SODIUM 0.1 MG TABLET GT SCH (10:23)
[2023-01-03] MEDS: HEPARIN SODIUM,PORCINE 5,000 UNITS/ML VIAL SUBCUT SCH ×2 (10:26→21:55)
[2023-01-03] MEDS: D5NS 1,000 ML IV SCH (11:42)
--- NOTE | 2023-01-03 13:00 | NUR ---
Dietitian Recommendations * Continue Cardiac, Mechanical Soft diet * Glucerna 1.2 at 85 ml/hr x12 hrs ([id number]), Joe BID, Free Water Flush: per physician d/t CHF via GT Provides: 1690 kcal/day, 89 gm protein/day, and 774 ml free water/day Meets: 84% of lower end of estimated caloric needs and 88% of lower end of estimated protein needs LP, MS, RD Please refer to Nutrition Assessment for details. Addendum: 01/03/23 at [address] Amended: Links added.
[2023-01-03] MEDS: FLUCONAZOLE 200 mg/ NS 100 ML IV SCH (13:44)
[2023-01-03] MEDS: ACETAMINOPHEN 325 MG TABLET PO PRN (13:45)
[2023-01-03] MEDS: LORazepam 2 MG/ML VIAL IVP PRN (14:28)
--- NOTE | 2023-01-03 15:23 | NUR ---
WOUND EVALUATION: Wound Consult received from Dr. Parag Potter. Thank you, Dr. Potter, for the consult. Patient received in a [facility] Bed with an IsoFlex JERONIMO mattress, awake, alert, confused. Patient is unable to turn in bed independently, and complains of pain when turned to the left. Avinash Score is a 14. Past Medical History: Anxiety, Chronic Respiratory Failure, Migraine headaches, hormone deficiency, Hypothyroidism, Hypertension, history of seizures, Epilepsy, heart failure, A-fib (on carvedilol), Diabetes Mellitus Type 2. Patient Came to the ER with Acute Respiratory Failure, severe Bradycardia, Hypoxia, lethargy, and Hypotension. Recent Labs: WBC 17.4, RBC 3.80, hemoglobin 9.6, hematocrit 29.6, sodium 127, chloride 96, CO2 22, BUN 34, creatinine 0.75, glucose 58, lactic acid 8.0/2.3/2.1, BNP 28.6, serum total protein 5.8, albumin 2.1, PTT 37.9. Microbiology: Blood culture results x2 in progress. MRSA screen results in progress. Urine culture results in progress. Skin fungal culture results in progress. Intrinsic factors that delay wound healing: Hypoalbuminemia; State of confusion limits patient's ability to actively offload pressure injury areas/pressure areas, and avoid sharing. Extrinsic factors that delay wound healing: Decreased mobility. Per assessment by Dr. Prado: ASSESSMENT: * Acute hypoxic respiratory failure. * Pneumonia. * Septic shock. * Bradycardia, symptomatic. * Hyperkalemia. * Junctional rhythm. * Moderate hyponatremia. * Pulmonary edema. Wound Assessment: 1. Mid Posterior Back: Stage IV pressure ulcer, present on admission. Site is present on central and left lateral portion of back in between Spinal Levels T7-T9. Wound bed has 35% light pink tissue, 55% yellow tissue, 10% black tissue. No odor, scant yellow drainage. Karena-wound intact. Surrounding tissue has blanchable redness and dark discoloration. Undermining present from 8-1 o'clock (0.4 cm at 8 o'clock; 0.7 cm at 9 o'clock; 1.5 cm at 12 o'clock; 0.2 cm at 1 o'clock). Wound measures 4.0 cm x 4.0 cm x 0.6 cm. Recommend: Cleanse wound with normal saline. Apply moisture barrier cream to periwound. Apply Venelex ointment to wound bed. Pack wound with 1/4 inch iodoform packing strip. Cover with 4x4 foam dressing. Perform wound care daily, and as needed for dressing soiling or dislodgment. 2. Left Sacral area: Unstageable pressure ulcer, present on admission. Site is present on central and left lateral portion of Sacrum. Wound bed has 10% black tissue. No odor, no drainage. Periwound not intact. Undermining present from 11-4 o'clock (0.5 cm at 11 o'clock; 1.1 cm at 3 o'clock; 0.3 cm at 4 o'clock). Measures 4.0 cm x 4.0 cm x 0.6 cm. Recommend: Cleanse wound with normal saline. Apply moisture barrier cream to periwound. Apply Venelex ointment to wound bed. Pack wound with 1/4 inch iodoform packing strip. Cover with nonadhesive foam dressing. Secure with transparent dressing. Perform wound care daily, and as needed for dressing soiling or dislodgment. 3. Left Thigh: Proximal, Anterior and Lateral aspects: Severe cellulitis, present on admission. Site has erythema starting from proximal and medial thigh, extending laterally and medially to popliteal areas. Cellulitis site now has light red erythema, calor, and moderate non-pitting edema. Site has has 100% dull red tissue. No odor, scant sanguineous drainage. Perimeter of skin tear intact. Surrounding tissue has ecchymosis. Skin tear measures 1.1 cm x 3.2 cm. Recommend: Cleanse wound with normal saline. Apply moisture barrier cream to periwound. Apply Venelex ointment to skin tear bed. Cover with oil emulsion dressing, secure with foam dressing. Perform site care daily, and as needed for dressing soiling or dislodgment. 5. Left Upper Extremity: Multiple small areas of ecchymosis, present on admission. 6. Right Upper Extremity: Multiple small areas of ecchymosis, present on admission. Recommend: No dressings needed. Continue to monitor sites every shift. 7. Left Upper Extremity: Multiple small areas of ecchymosis, present on admission. 8 Right Upper Extremity: Multiple small areas of ecchymosis, present on admission. Recommend: No dressings needed. Continue to monitor sites every shift. Also recommend: Reposition patient every 2 hours with pillow support and off-load pressure areas with pillows for pressure re-distribution. Offload, elevate and float bilateral heels with pillows. Perform skin care and monitor skin integrity Q shift. Use moisture barrier cream on buttocks and other moisture susceptible areas QID and as needed for soiling. Place patient on a P500 low air-loss mattress.
--- NOTE | 2023-01-03 17:35 | NUR ---
RT NOTES O2 TO 2L. RN notified
[2023-01-03] MEDS: MENTHOL/ZINC OXIDE 113 GM OINT. TP SCH ×2 (18:21→21:56)
--- NOTE | 2023-01-03 18:22 | NUR ---
PT REPORTED TO NURSE THAT SHE REFUSED MORPHINE FOR PAIN, BECAUSE LAST TIME SHE HAD IT AND SHE WAS OUT OF IT FOR WHOLE DAY
[2023-01-03] MEDS ORDERED: VANCOMYCIN HCL 1,000 MG in NS 250 ML IV SCH (20:00)
--- NOTE | 2023-01-03 20:00 | NUR ---
ASSESSMENT Pt alert oriented to self and place. Pt is also LONE PINE. Pt talkative. Left TLC present no redness or swelling noted at site dressing intact. Right AC saline lock removed, leaking. 2 wounds noted on thoracic back and coccyx areas. Boyer cath in use draining yellow urine. O2 2L via NC in use.
[2023-01-03] MEDS: MEROPENEM 1 GM in NS 100 ML IV SCH (21:27)
--- NOTE | 2023-01-03 23:00 | NUR ---
BED Pt was changed to low air loss mattress (bed), and became upset an agitated. Wants the original bed she was on stating "it was the best bed and slept good last night". Pt was instructed the reason for the change. Still insisted to be placed on the other bed.
[2023-01-04] VITALS (23 sets, daily range): BP systolic 121–154
--- NOTE | 2023-01-04 | NUR ---
TURNING Attempted to turn PT, PT refused to be turned stating" I have spasms when I turn the other way" to the left. It was explained to the Pt that it is important to be turned at least every 2 hours to prevent more bed sores. Pt continues to refused to be turned. She states " She will turn her self.
[2023-01-04] MEDS: ACETAMINOPHEN 325 MG TABLET PO PRN ×3 (00:12→16:18)
--- NOTE | 2023-01-04 01:00 | NUR ---
RESTLESS Pt stated "I feel awful". Pt HR 90, RR 30, Sat 80's BP 130/60. Pt had NC 2L in use. Pt was changed to BIPAP (06/25 BUR18 50%), vitals improved to HR 82 RR 21 Sat 98% BP 121/57. Pt is now resting.
[2023-01-04] MEDS: D5NS 1,000 ML IV SCH ×2 (01:06→13:22)
--- NOTE | 2023-01-04 01:39 | NUR ---
PT SATS WERE IN THE HIGH 60S. HEART RATE AND RESPIRATORY RATE WERE FINE, ME AND THE NURSE DECIDED TO PUT HER ON THE BIPAP TO SEE IF IT WOULD INCREASE HER SATURATIONS. RIGHT AFTER WE PUT THE MASK BACK ON, SATS WENT BACK UP. PT MIGHT NEED TO BIPAP FOR NIGHT ONLY. SETTINGS FOR BIPAP: 06/25 F18 50% Addendum: 01/04/23 at 0143 by Sangeetha Rahman RT Amended: Links added.
--- NOTE | 2023-01-04 02:00 | NUR ---
BIPAP Pt refused to continue with the BIPAP, stating "I will have a stroke if I keep on wearing it". Pt placed on mask.
--- NOTE | 2023-01-04 02:00 | NUR ---
FEEDING Pt c/o nausea, feeding held and Zofran IV given. No residual noted @ midnight when checked. Feeding was started @ 30ml/HR.
--- NOTE | 2023-01-04 02:05 | NUR ---
PT DID NOT WANT THE BIPAP ANYMORE. PUT PT ON NRB AND WAS SATTING 97% Addendum: 01/04/23 at 0233 by Sangeetha Rahman RT Amended: Links added.
[2023-01-04 05:46] LABS: BASOPHILS % (AUTO) 0.3 % (0.0-2.0); EOSINOPHILS % (AUTO) 0.3 % (0.0-4.0); HEMATOCRIT 29.2 % (36-48); HEMOGLOBIN 9.5 g/dL (12.0-16.0); LYMPHOCYTES # (AUTO) 2.3 K/uL (1.0-5.5); LYMPHOCYTES % (AUTO) 15.4 % (20.5-51.5); MEAN CORPUSCULAR HEMOGLOBIN 25 pg (27-31); MEAN CORPUSCULAR HGB CONC 33 % (32-36); MEAN CORPUSCULAR VOLUME 78 fL (79.0-98.0); MONOCYTES # (AUTO) 0.7 K/uL (0.0-1.0); MONOCYTES % (AUTO) 4.4 % (1.7-9.3); NEUTROPHILS # (AUTO) 11.9 K/uL (1.8-7.7); NEUTROPHILS % (AUTO) 79.6 % (40.0-70.0); PLATELET COUNT (AUTO) 495 K/uL (130-430); RED BLOOD CELL COUNT(AUTO) 3.75 MIL/uL (4.2-6.2); RED CELL DISTRIBUTION WIDTH 19.7 % (9.0-15.0)
--- NOTE | 2023-01-04 06:00 | NUR ---
REPOSITIONING Pt refuses to turn from side to side. Turning feature of bed used to turn Pt. Pt started to complaint bed was uncomfortable and wants other bed.
--- NOTE | 2023-01-04 06:00 | NUR ---
SKIN Left upper thigh with redness and swelling, area marked with a marker. Skin intact.
--- NOTE | 2023-01-04 06:00 | NUR ---
RESPIRATORY Multiple time the Pt had been ask to use the BiPAP because O2 Sat was low, Pt refused until now. Twice pt had c/o nausea, Pt was medicated one time. Unable to give a second time due to frequency. Feeding has been restarted @ 10ml/hr.
[2023-01-04 06:08] LABS: ANION GAP 10 (5-15); CALCIUM 8.3 mg/dL (8.4-11.0); CHLORIDE 97 mmol/L (98-107); CREATININE 0.43 mg/dL (0.55-1.30); GLUCOSE 117 mg/dL (70-99); UREA NITROGEN, BLOOD 21 mg/dL (8-21)
[2023-01-04 06:26] LABS: ALANINE AMINOTRANSFERASE 65 U/L (12-78); ALBUMIN 2.2 g/dL (3.4-4.8); ASPARTATE AMINOTRANSFERASE 44 U/L (10-37); CHOLESTEROL 117 mg/dL (<200); HDL CHOLESTEROL 64 mg/dL (>55); LIPASE 54 U/L (73-393); TOTAL BILIRUBIN 0.3 mg/dL (0.0-1.0); TRIGLYCERIDES 57 mg/dL (30-150)
--- NOTE | 2023-01-04 07:30 | NUR ---
Opening Received report on pt. Pt currently on bipap, saturating 90-92%, but is wanting to take off bipap. Pt with IVF infusing to central line. Boyer draining urine to gravity.
[2023-01-04] MEDS: HEPARIN SODIUM,PORCINE 5,000 UNITS/ML VIAL SUBCUT SCH ×2 (08:22→21:32)
[2023-01-04] MEDS: ASPIRIN 81 MG TAB.CHEW GT SCH (08:22)
[2023-01-04] MEDS: busPIRone HCL 5 MG TABLET GT SCH (08:22)
[2023-01-04] MEDS: LEVOTHYROXINE SODIUM 0.1 MG TABLET GT SCH (08:23)
[2023-01-04] MEDS: MEROPENEM 1 GM in NS 100 ML IV SCH ×2 (08:23→21:28)
[2023-01-04] MEDS: FUROSEMIDE 100 MG in D5W 90 ML IV SCH (08:25)
[2023-01-04] MEDS: MENTHOL/ZINC OXIDE 113 GM OINT. TP SCH ×4 (09:00→21:37)
--- NOTE | 2023-01-04 09:14 | NUR ---
0730 PATIENT REFUSED BIPAP. OFF BIPAP AND PLACED ON NC 5LPM. PLACED ON NRB 15LPM DUE TO PATIENT DESAT TO 84% ON NC 5LPM. WILL TITRATE OXYGEN.
--- NOTE | 2023-01-04 10:00 | NUR ---
Code Status change to DNR with comfort measures by Dr. Potter who discussed with pt's . Code status signed and placed in chart.
[2023-01-04] MEDS: FLUCONAZOLE 200 mg/ NS 100 ML IV SCH (12:36)
--- NOTE | 2023-01-04 13:55 | NUR ---
pageedd Villalobos regarding pt heart medication amiodarone . Wants to know if she should be on them. Addendum: 01/04/23 at 1519 by Nav Hein RN Amended: Links added.
--- NOTE | 2023-01-04 16:41 | NUR ---
In to speak with ABIGAIL Goldman to inquire about the code status of the patient. The patient is now a DNR and placed on comfort measures. The patient is on 3L of O2. At this time, there are no orders for transfer. Susi advised of the LOS meeting review and the plan at that time. At this time the family is at bedside visiting with patient, and the patient appears comfortable in the bed.
--- NOTE | 2023-01-04 16:46 | NUR ---
[place] [facility] [place] -Kristina [phone]-she will talk to the family and verify they want the patient to go home on hospice. She will need an order to DC the patient home on hospice if patient is stable and the family agrees.
[2023-01-04] MEDS: LORazepam 2 MG/ML VIAL IVP PRN (18:44)
--- NOTE | 2023-01-04 19:00 | NUR ---
Closing Pt in no signs of distress, on 5L nasal cannula. Currently up in bed eating dinner with and son. Pt remains on lasix drip and IVF. Boyer in place draining urine to gravity. GT with feeding. Endorsed plan of care to RN
--- NOTE | 2023-01-04 19:10 | NUR ---
RECEIVED REPORT ON PATIENT FROM ABIGAIL RUBIO, ASSUMED CARE, AND STARTED ASSESSMENT. PATIENT IS AWAKE ALERT AND CONFUSED. WILL CONTINUE TO MONITOR AND ASSESS FOR SAFETY AND COMFORT.
[2023-01-04] MEDS: AMIODARONE HCL 200 MG TABLET PO SCH (21:29)
--- NOTE | 2023-01-04 23:57 | NUR ---
PATIENT WAS FOUND TRYING TO GET OUT OF BED. HER LEGS WERE STUCK BETWEEN THE BED RAILS, AND HER HEART RATE HAD RISEN INTO THE HIGH 120'S. SHE WAS ASSISTED BACK INTO THE BED WHILE INSISTING THAT SHE NEEDED TO CALL HER . PATIENT WAS EXPLAINED THAT HER HEART RATE WAS TOO FAST AND THAT SHE WAS ENDANGERING HER OWN LIFE WITH THE RECALCITRANT BEHAVIOR. CONTRACTED WITH PATIENT THAT IF SHE WOULD RELAX AND ALLOW HER HEART RATE TO SUBSIDE BELOW 100 THAT SHE COULD CALL HER . WILL CONTINUE TO MONITOR AND ASSESS FOR SAFETY AND COMFORT.
[2023-01-05] VITALS (14 sets, daily range): BP systolic 105–142
--- NOTE | 2023-01-05 01:00 | NUR ---
PATIENT CONTINUED TO ATTEMPT TO GET OUT OF BED. AT ONE POINT WHEN TRYING TO PREVENT PATIENT FROM GETTING OUT OF BED SHE BECAME AGRESSIVE WITH KICKING AND TRYING TO FIGHT. DR EPPS WAS CALLED AND HE ORDERED PRECEDEX. PRECEDEX WAS STARTED AT 0.2 MG/HR. PATIENT WAS FINALLY ABLE TO REST AND WENT TO SLEEP. WILL CONTINUE TO MONITOR AND ASSESS FRO SAFETY AND COMFORT.
[2023-01-05] MEDS: FUROSEMIDE 100 MG in D5W 90 ML IV SCH (03:15)
--- NOTE | 2023-01-05 04:30 | NUR ---
COMPLETE BED BATH AND LINEN CHANGE GIVEN. WILL CONTINUE TO MONITOR AND ASSESS FOR SAFETY AND COMFORT.
--- NOTE | 2023-01-05 05:00 | NUR ---
PATIENT REMAINS SOUND ASLEEP. THE BLOOD PRESSURE HAS DROPPED TO 111/45 SO THE PRECEDEX WAS TURNED OFF. WILL CONTINUE TO MONITOR AND ASSESS FOR SAFETY AND COMFORT.
[2023-01-05 05:40] LABS: BASOPHILS # (AUTO) 0.1 K/uL (0.0-0.2); BASOPHILS % (AUTO) 0.4 % (0.0-2.0); EOSINOPHILS # (AUTO) 0.1 K/uL (0.0-0.4); EOSINOPHILS % (AUTO) 0.6 % (0.0-4.0); HEMATOCRIT 33.4 % (36-48); HEMOGLOBIN 10.9 g/dL (12.0-16.0); LYMPHOCYTES # (AUTO) 2.2 K/uL (1.0-5.5); LYMPHOCYTES % (AUTO) 15.3 % (20.5-51.5); MEAN CORPUSCULAR HEMOGLOBIN 25 pg (27-31); MEAN CORPUSCULAR HGB CONC 33 % (32-36); MEAN CORPUSCULAR VOLUME 77 fL (79.0-98.0); MONOCYTES # (AUTO) 0.9 K/uL (0.0-1.0); MONOCYTES % (AUTO) 5.9 % (1.7-9.3); NEUTROPHILS # (AUTO) 11.4 K/uL (1.8-7.7); NEUTROPHILS % (AUTO) 77.8 % (40.0-70.0); PLATELET COUNT (AUTO) 512 K/uL (130-430); RED BLOOD CELL COUNT(AUTO) 4.35 MIL/uL (4.2-6.2); RED CELL DISTRIBUTION WIDTH 19.9 % (9.0-15.0); WHITE BLOOD COUNT (AUTO) 14.6 K/uL (4.8-10.8)
[2023-01-05 06:05] LABS: ANION GAP 7 (5-15); CALCIUM 8.7 mg/dL (8.4-11.0); CHLORIDE 90 mmol/L (98-107); GLUCOSE 116 mg/dL (70-99); UREA NITROGEN, BLOOD 18 mg/dL (8-21)
--- NOTE | 2023-01-05 06:24 | NUR ---
RECEIVED CALL FROM LAB WITH A CRITICAL POTASSIUM LEVEL OF 2.7. DR CROWELL WAS CALLED AND SHE ORDERED K-RIDER 60 MEQ IV X1 AND TO REPEAT THE CHEM PANEL TO RECHECK K LEVEL. WILL CONTINUE TO MONITOR AND ASSESS FOR SAFETY AND COMFORT.
[2023-01-05] MEDS ORDERED: KCL 20 mEq in 100 mL (PREMIX) 100 ML IV ONE (06:30)
[2023-01-05] MEDS ORDERED: KCL 40 mEq in 100 mL (PREMIX) 100 ML IV ONE (08:30)
[2023-01-05] MEDS: busPIRone HCL 5 MG TABLET GT SCH (08:59)
[2023-01-05] MEDS: ACETAMINOPHEN 325 MG TABLET PO PRN ×3 (09:01→21:17)
[2023-01-05] MEDS: LEVOTHYROXINE SODIUM 0.1 MG TABLET GT SCH (09:01)
[2023-01-05] MEDS: ASPIRIN 81 MG TAB.CHEW GT SCH (09:02)
[2023-01-05] MEDS: MEROPENEM 1 GM in NS 100 ML IV SCH ×2 (09:09→21:16)
[2023-01-05] MEDS: HEPARIN SODIUM,PORCINE 5,000 UNITS/ML VIAL SUBCUT SCH ×2 (09:11→21:15)
[2023-01-05] MEDS: FUROSEMIDE 20 MG/2 ML VIAL IVP SCH ×2 (09:13→21:16)
[2023-01-05] MEDS: MENTHOL/ZINC OXIDE 113 GM OINT. TP SCH ×4 (09:18→21:19)
--- NOTE | 2023-01-05 11:30 | NUR ---
Patient has stabilized throughout the shift. Patient had Precedex stopped several hours ago and patient is lucid and aware of activities. Patient aware that she is moving to telemetry floor and also aware of hospice activities. Patient also had help and conversation by student nurse Carol, who made patient feel much better, patient stated. Patient being prepared to move to Room 105B and report given to ABIGAIL Martinez and his precetee at this time on [facility].
[2023-01-05] MEDS ORDERED: metOLazone 5 MG TABLET PO ONE (12:00)
--- NOTE | 2023-01-05 12:00 | NUR ---
Patient transferred to telemetry unit as patient calmer and no need for Precedex at this time. Also called an left message for Kristina at [facility] that patient has been moved to telemetry and that the and son want Ms. Estrada to do hospice at [facility] and have their services visit her 2-3 times weekly at facility. Spoke with both , Eric and son Golden regarding their wishes and they both indicated that they would like Ms. Estrada to be sent to [facility] for end of life care. Spoke to MD as well this am and tele order still in effect. Patient when transferred was very lucid and pleasant. She is well aware of the times her son and advised her they would visit today and patient aware and pleased regarding the change of room at this time.
--- NOTE | 2023-01-05 12:00 | NUR ---
RECEIVED PT FROM ICU. REPORT RECEIVED FROM ABIGAIL ALLEN. PT ON STABLE CONDITION. VITALS WNL.
[2023-01-05] MEDS: FLUCONAZOLE 200 mg/ NS 100 ML IV SCH (12:49)
[2023-01-05] MEDS: D5NS 1,000 ML IV SCH (12:51)
--- NOTE | 2023-01-05 13:00 | NUR ---
PT'S SON AND DTR-IN LAW AT BEDSIDE.
--- NOTE | 2023-01-05 16:02 | NUR ---
GOT AN ORDER FOR HOSPICE . PT'S INFORMED THIS RN THAT [facility] TEL NO [phone], SAID THEY WILL DRY CELL TESTER PT SONJA AND THEY HAVE ARRANGED THE SUPPLIES NEEDED. TOLD PT THAT WE WILL CALL MD TO GET ORDER.
--- NOTE | 2023-01-05 16:47 | NUR ---
FAXED TO [facility] FOR HOSPICE EVAL. I SPOKE WITH JESSICA AND SHE IS IN CONTACT WITH PT'S . SHE SAID THE PT WAS SUPPOSED TO HAVE STARTED ON HOSPICE CARE SINCE PATIENT WAS IN [facility] BUT IS WAS PUT ON HOLD WHEN PT WAS TRANSFERRED TO [facility].
--- NOTE | 2023-01-05 16:50 | NUR ---
PT WANTS PT TO BE TRANSFERRED TOMORROW.
--- NOTE | 2023-01-05 16:56 | NUR ---
PER HOSPICE NURSE JESSICA, PT WILL BE PICKED UP BET 1 AND 2 PM TOMORROW ( 01/06/23)
--- NOTE | 2023-01-05 19:35 | NUR ---
CLOSING NOTE PATIENT RESTING IN BED, NO C/O PAIN, CALL LIGHT WITHIN REACH, NOT IN DISTRESS. CARE ENDORSED TO THE NIGHT NURSE
[2023-01-05] MEDS: AMIODARONE HCL 200 MG TABLET PO SCH (21:17)
[2023-01-06 01:08] VITALS: BP_SYST 134
--- NOTE | 2023-01-06 02:55 | NUR ---
TYLENOL 325 MG GT ADMINISTER FOR ACUTE pain & helpful / comfort measures implemented off loading with pillows used tolerated / .
[2023-01-06 07:54] VITALS: BP_SYST 132
[2023-01-06 08:15] LABS: BASOPHILS # (AUTO) 0.1 K/uL (0.0-0.2); BASOPHILS % (AUTO) 0.5 % (0.0-2.0); EOSINOPHILS # (AUTO) 0.6 K/uL (0.0-0.4); EOSINOPHILS % (AUTO) 4.4 % (0.0-4.0); HEMATOCRIT 32.4 % (36-48); HEMOGLOBIN 10.5 g/dL (12.0-16.0); LYMPHOCYTES # (AUTO) 2.8 K/uL (1.0-5.5); LYMPHOCYTES % (AUTO) 21.5 % (20.5-51.5); MEAN CORPUSCULAR HEMOGLOBIN 25 pg (27-31); MEAN CORPUSCULAR HGB CONC 33 % (32-36); MEAN CORPUSCULAR VOLUME 77 fL (79.0-98.0); MONOCYTES % (AUTO) 7.4 % (1.7-9.3); NEUTROPHILS # (AUTO) 8.7 K/uL (1.8-7.7); NEUTROPHILS % (AUTO) 66.2 % (40.0-70.0); PLATELET COUNT (AUTO) 530 K/uL (130-430); RED CELL DISTRIBUTION WIDTH 19.6 % (9.0-15.0); WHITE BLOOD COUNT (AUTO) 13.2 K/uL (4.8-10.8)
[2023-01-06 08:42] LABS: ALANINE AMINOTRANSFERASE 38 U/L (12-78); ALBUMIN 2.5 g/dL (3.4-4.8); ANION GAP 4 (5-15); ASPARTATE AMINOTRANSFERASE 20 U/L (10-37); CALCIUM 9.7 mg/dL (8.4-11.0); CHLORIDE 90 mmol/L (98-107); CREATININE 0.43 mg/dL (0.55-1.30); GLUCOSE 99 mg/dL (70-99); TOTAL BILIRUBIN 0.5 mg/dL (0.0-1.0); UREA NITROGEN, BLOOD 16 mg/dL (8-21)
[2023-01-06] MEDS: ASPIRIN 81 MG TAB.CHEW GT SCH (09:25)
[2023-01-06] MEDS: busPIRone HCL 5 MG TABLET GT SCH (09:26)
[2023-01-06] MEDS: FUROSEMIDE 20 MG/2 ML VIAL IVP SCH (09:26)
[2023-01-06] MEDS: LEVOTHYROXINE SODIUM 0.1 MG TABLET GT SCH (09:26)
[2023-01-06] MEDS: MEROPENEM 1 GM in NS 100 ML IV SCH (09:27)
[2023-01-06] MEDS: HEPARIN SODIUM,PORCINE 5,000 UNITS/ML VIAL SUBCUT SCH (09:30)
[2023-01-06] MEDS: MENTHOL/ZINC OXIDE 113 GM OINT. TP SCH (09:49)
--- NOTE | 2023-01-06 10:01 | NUR ---
JESSICA FROM [facility] CALLED TO GIVE THE TRANSFER INFO: GOING TO [facility] RM 312; [employer] ETCH OPERATOR TIME IS : 1300 TO 1400 BY [email or web address]SP[facility] FOR ANY ISSUE OR PROBLEM, JESSICA FROM HOSPICE TEL # [phone].
[2023-01-06 11:24] VITALS: BP_SYST 120
[2023-01-06 11:40] VITALS: BP_SYST 120
[2023-01-06] MEDS ORDERED: SODIUM CHLORIDE 500 MG TABLET PO ONE (13:15)
[2023-01-06] MEDS ORDERED: SODIUM CHLORIDE 500 MG TABLET ONE (13:42)
--- NOTE | 2023-01-06 13:58 | NUR ---
Pt discharge to assisted living with hospice care. pt's signed dc instruction. pt left with feliciano catheter. central line was discontinued as ordered. no bleeding. photo of wounds taken before dc. pt on stable condition on dc.
== END 2023-01-06 13:50 | disposition hospice, home (50) | DRG 871 ==
LOC: SED 18:47 → SIC 21:15 → STU 01-05 11:50
PROVIDERS: ADMIT General Practice; ATTEND General Practice
PROC: 5A09357 Assistance with Respiratory Ventilation, Less than 24 Consecutive Hours, Continuous Positive Airway Pressure (ICD-10-PCS; principal; 2023-01-02)
PROC: 02HV33Z Insertion of Infusion Device into Superior Vena Cava, Percutaneous Approach (ICD-10-PCS; 2023-01-02)
PROC: B548ZZA Ultrasonography of Superior Vena Cava, Guidance (ICD-10-PCS; 2023-01-02)
PROC: 5A09357 Assistance with Respiratory Ventilation, Less than 24 Consecutive Hours, Continuous Positive Airway Pressure (ICD-10-PCS; 2023-01-04)
DX: A41.9 Sepsis, unspecified organism (principal); G93.41 Metabolic encephalopathy; L89.154 Pressure ulcer of sacral region, stage 4; J96.21 Acute and chronic respiratory failure with hypoxia; R65.21 Severe sepsis with septic shock; J69.0 Pneumonitis due to inhalation of food and vomit; L03.116 Cellulitis of left lower limb; E87.1 Hypo-osmolality and hyponatremia; E87.20 Acidosis, unspecified; E44.0 Moderate protein-calorie malnutrition; I50.30 Unspecified diastolic (congestive) heart failure; E03.9 Hypothyroidism, unspecified; D75.839 Thrombocytosis, unspecified; G40.909 Epilepsy, unspecified, not intractable, without status epilepticus; Z20.822 Contact with and (suspected) exposure to COVID-19; I48.0 Paroxysmal atrial fibrillation; E87.5 Hyperkalemia; K21.9 Gastro-esophageal reflux disease without esophagitis; D64.9 Anemia, unspecified; I11.0 Hypertensive heart disease with heart failure; R00.1 Bradycardia, unspecified; Z66 Do not resuscitate; E11.9 Type 2 diabetes mellitus without complications; Z93.1 Gastrostomy status; Z74.01 Bed confinement status; Z79.01 Long term (current) use of anticoagulants; Z88.0 Allergy status to penicillin; Z88.2 Allergy status to sulfonamides; Z88.8 Allergy status to other drugs, medicaments and biological substances; Z68.22 Body mass index [BMI] 22.0-22.9, adult; Z79.1 Long term (current) use of non-steroidal anti-inflammatories (NSAID); Z79.899 Other long term (current) drug therapy
CPT/HCPCS: 36415; 36600; 71045; 80048; 80053; 80061; 81000; 82803; 82962; 83037; 83605; 83690; 83735; 83880; 84443; 84484; 85025; 85610-TC; 85730-TC; 87040; 87081; 87086; 87101; 93005; 93306; 94640; 94660; 94760; 99291; G0378; J1265; J1450; J1644; J1815; J1940; J1956; J2060; J2185; J2405; J3370; J3480; J7050; J7060

== ENCOUNTER 2023-09-10 13:27 | Inpatient (IN) | payer OTHER, MEDICARE ==
[~2023-09-10] VITALS: Ht 160 cm; Wt 54.9 kg
[~2023-09-10 13:27] MED LIST changes: +DOXY100C GT; +ESTR0.623 GT; +FLUC200T GT; +INSU100V44 SUBCUT; +LORA-259 PO; +SENN8.6T19 PO
[2023-09-10 13:30] VITALS: BP_SYST 168; PULSE 105; RESP 18; TEMP 98.6; O2SAT 97
[2023-09-10 15:15] LABS: BASOPHILS % (AUTO) 0.3 % (0.0-2.0); EOSINOPHILS # (AUTO) 0.1 K/uL (0.0-0.4); EOSINOPHILS % (AUTO) 0.6 % (0.0-4.0); HEMATOCRIT 34.4 % (36-48); HEMOGLOBIN 11.4 g/dL (12.0-16.0); LYMPHOCYTES # (AUTO) 1.9 K/uL (1.0-5.5); LYMPHOCYTES % (AUTO) 19.2 % (20.5-51.5); MEAN CORPUSCULAR HEMOGLOBIN 30 pg (27-31); MEAN CORPUSCULAR HGB CONC 33 % (32-36); MEAN CORPUSCULAR VOLUME 90 fL (79.0-98.0); MONOCYTES # (AUTO) 0.7 K/uL (0.0-1.0); MONOCYTES % (AUTO) 7.3 % (1.7-9.3); NEUTROPHILS # (AUTO) 7.2 K/uL (1.8-7.7); NEUTROPHILS % (AUTO) 72.6 % (40.0-70.0); PLATELET COUNT (AUTO) 630 K/uL (130-430); RED BLOOD CELL COUNT(AUTO) 3.84 MIL/uL (4.2-6.2); RED CELL DISTRIBUTION WIDTH 15.1 % (9.0-15.0); WHITE BLOOD COUNT (AUTO) 9.9 K/uL (4.8-10.8)
[2023-09-10 15:42] LABS: PROTHROMBIN TIME 10.2 SECS (9.5-12.5)
[2023-09-10 15:43] LABS: ALANINE AMINOTRANSFERASE 39 U/L (12-78); ALBUMIN 2.6 g/dL (3.4-4.8); ANION GAP 10 (5-15); ASPARTATE AMINOTRANSFERASE 24 U/L (10-37); CALCIUM 9.8 mg/dL (8.4-11.0); CARBON DIOXIDE 25 mmol/L (23-29); CHLORIDE 96 mmol/L (98-107); CREATININE 0.56 mg/dL (0.55-1.30); GLUCOSE 116 mg/dL (74-106); POTASSIUM 4.5 mmol/L (3.5-5.1); SODIUM SERUM 131 mmol/L (136-145); TOTAL BILIRUBIN 0.2 mg/dL (0.0-1.0); TOTAL PROTEIN, SERUM 7.8 g/dL (6.4-8.3); UREA NITROGEN, BLOOD 17 mg/dL (8-21)
[2023-09-10 15:48] LABS: BILIRUBIN,DIRECT 0.1 mg/dL (0.0-0.3)
[2023-09-10] MEDS ORDERED: METR500T TD (15:57)
[2023-09-10] MEDS ORDERED: CIPR-260 PO (15:57)
[2023-09-10] MEDS ORDERED: TRAZ-251 PO (15:57)
[2023-09-10] MEDS ORDERED: LORA2TAB95 PO (15:57)
[2023-09-10] MEDS ORDERED: FENT1PAT4 TD (15:57)
[2023-09-10] MEDS ORDERED: HYDR-3927 PO (15:57)
[2023-09-10] MEDS ORDERED: BUTA1CAP61 PO (15:57)
[2023-09-10 16:58] VITALS: PULSE 97; O2SAT 97
[2023-09-10] MEDS ORDERED: MAGNESIUM SULFATE 50 ML IV PRN (17:00)
[2023-09-10] MEDS ORDERED: MORPHINE 2 MG/ML INJ. SYRINGE IVP PRN (17:00)
[2023-09-10] MEDS ORDERED: DOCUSATE SODIUM 100 MG CAPSULE PO PRN (17:00)
[2023-09-10] MEDS ORDERED: MUPIROCIN 2% TOPICAL OINTMENT 22 GM NS PRN (17:00)
[2023-09-10] MEDS ORDERED: ONDANSETRON HCL 4 MG/2 ML VIAL IVP PRN (17:00)
[2023-09-10] MEDS ORDERED: IPRATROPIUM/ALBUTEROL SULFATE 3 ML AMPUL.NEB (DUONEB) INH PRN (17:00)
[2023-09-10] MEDS ORDERED: fentaNYL 25 MCG/HR PATCH TD SCH (17:00)
[2023-09-10] MEDS: cefTRIAXone 1 GM in D5W 50 ML IV ONE (17:36)
[2023-09-10] MEDS: ASPIRIN 325 MG TABLET PO ONE (17:36)
[2023-09-10] MEDS: D5NS 1,000 ML IV SCH (17:40)
[2023-09-10] MEDS ORDERED: cefTRIAXone 1 GM VIAL ONE (17:41)
[2023-09-10] MEDS: metroNIDAZOLE 500 mg/NS 100 ML IV ONE (18:16)
[2023-09-10] MEDS: HEPARIN SODIUM,PORCINE 5,000 UNITS/ML VIAL SUBCUT SCH (21:00)
[2023-09-10] MEDS: traZODone HCL 50 MG TABLET (DESYREL) PO SCH (21:10)
[2023-09-10] MEDS: ACETAMINOPHEN 500 MG TABLET PO PRN (21:18)
[2023-09-11] VITALS (8 sets, daily range): BP systolic 110–142; PULSE 69–83; RESP 18–19; TEMP 96–97.6; O2SAT 95–98
[2023-09-11] MEDS: metroNIDAZOLE 500 mg/NS 100 ML IV SCH ×2 (02:05→21:08)
[2023-09-11] MEDS: ZOLPIDEM TARTRATE 5 MG TABLET PO PRN (02:06)
[2023-09-11 02:17] LABS: COVID19 ANTIGEN SOFIA FIA NEGATIVE (NEGATIVE)
[2023-09-11 02:18] LABS: INFLUENZA TYPE A Negative (NEGATIVE); INFLUENZA TYPE B NEGATIVE (NEGATIVE)
[2023-09-11 02:30] LABS: BILIRUBIN,URINE NEGATIVE (NEGATIVE); BLOOD, URINE 1+ (NEGATIVE); COLOR,URINE YELLOW (YELLOW); GLUCOSE,URINE NEGATIVE (NEGATIVE); KETONES,URINE NEGATIVE (NEGATIVE); LEUKOCYTE ESTERASE ,URINE 2+ (NEGATIVE); NITRITE, URINE POSITIVE (NEGATIVE); PH,URINE 8.5 (5.0-8.0); PROTEIN URINE 1+ (NEGATIVE); UROBILINOGEN,URINE 0.2 (0.2-1.0)
[2023-09-11 03:12] LABS: CLARITY/URINE CLOUDY (CLEAR)
[2023-09-11 03:13] LABS: BACTERIA,URINE MANY /HPF (None Seen); WBC,URINE 50-80 /HPF (0-3)
[2023-09-11 08:41] LABS: BASOPHILS # (AUTO) 0.1 K/uL (0.0-0.2); BASOPHILS % (AUTO) 0.6 % (0.0-2.0); EOSINOPHILS # (AUTO) 0.2 K/uL (0.0-0.4); HEMATOCRIT 31.1 % (36-48); HEMOGLOBIN 10.2 g/dL (12.0-16.0); LYMPHOCYTES # (AUTO) 1.8 K/uL (1.0-5.5); LYMPHOCYTES % (AUTO) 20.9 % (20.5-51.5); MEAN CORPUSCULAR HEMOGLOBIN 29 pg (27-31); MEAN CORPUSCULAR HGB CONC 33 % (32-36); MEAN CORPUSCULAR VOLUME 89 fL (79.0-98.0); MONOCYTES # (AUTO) 0.6 K/uL (0.0-1.0); MONOCYTES % (AUTO) 7.2 % (1.7-9.3); NEUTROPHILS % (AUTO) 69.3 % (40.0-70.0); PLATELET COUNT (AUTO) 562 K/uL (130-430); RED CELL DISTRIBUTION WIDTH 15.1 % (9.0-15.0); WHITE BLOOD COUNT (AUTO) 8.7 K/uL (4.8-10.8)
[2023-09-11 09:00] LABS: ANION GAP 8 (5-15); CALCIUM 9.9 mg/dL (8.4-11.0); CARBON DIOXIDE 24 mmol/L (23-29); CHLORIDE 94 mmol/L (98-107); CREATININE 0.61 mg/dL (0.55-1.30); GLUCOSE 134 mg/dL (74-106); POTASSIUM 4.2 mmol/L (3.5-5.1); SODIUM SERUM 126 mmol/L (136-145); UREA NITROGEN, BLOOD 15 mg/dL (8-21)
[2023-09-11] MEDS: ACETAMINOPHEN 500 MG TABLET PO PRN (12:24)
[2023-09-11] MEDS: metroNIDAZOLE 500 mg/NS 100 ML IV ONE (15:19)
[2023-09-11] MEDS: cefTRIAXone 1 GM in D5W 50 ML IV SCH (18:04)
[2023-09-11] MEDS: MORPHINE 2 MG/ML INJ. SYRINGE IVP PRN (21:09)
[2023-09-11] MEDS: LORazepam 2 MG/ML VIAL IVP PRN (22:29)
[2023-09-12] VITALS (9 sets, daily range): BP systolic 118–153; PULSE 65–98; RESP 17–20; TEMP 96.4–98.4; O2SAT 96–98
[2023-09-12 06:12] LABS: BASOPHILS # (AUTO) 0.1 K/uL (0.0-0.2); BASOPHILS % (AUTO) 0.8 % (0.0-2.0); EOSINOPHILS # (AUTO) 0.3 K/uL (0.0-0.4); EOSINOPHILS % (AUTO) 3.3 % (0.0-4.0); HEMOGLOBIN 10.2 g/dL (12.0-16.0); LYMPHOCYTES # (AUTO) 2.6 K/uL (1.0-5.5); LYMPHOCYTES % (AUTO) 27.8 % (20.5-51.5); MEAN CORPUSCULAR HEMOGLOBIN 30 pg (27-31); MEAN CORPUSCULAR HGB CONC 33 % (32-36); MEAN CORPUSCULAR VOLUME 90 fL (79.0-98.0); MONOCYTES # (AUTO) 0.6 K/uL (0.0-1.0); MONOCYTES % (AUTO) 6.4 % (1.7-9.3); NEUTROPHILS # (AUTO) 5.7 K/uL (1.8-7.7); NEUTROPHILS % (AUTO) 61.7 % (40.0-70.0); PLATELET COUNT (AUTO) 666 K/uL (130-430); RED BLOOD CELL COUNT(AUTO) 3.46 MIL/uL (4.2-6.2); RED CELL DISTRIBUTION WIDTH 14.7 % (9.0-15.0); WHITE BLOOD COUNT (AUTO) 9.3 K/uL (4.8-10.8)
[2023-09-12 06:45] LABS: ANION GAP 10 (5-15); CARBON DIOXIDE 25 mmol/L (23-29); CHLORIDE 97 mmol/L (98-107); CREATININE 0.57 mg/dL (0.55-1.30); GLUCOSE 111 mg/dL (74-106); POTASSIUM 3.9 mmol/L (3.5-5.1); SODIUM SERUM 132 mmol/L (136-145); UREA NITROGEN, BLOOD 7 mg/dL (8-21)
[2023-09-13] VITALS (7 sets, daily range): BP systolic 124–146; PULSE 72–94; RESP 16–18; TEMP 96.9–98.4; O2SAT 95–100
[2023-09-13 06:03] LABS: BASOPHILS # (AUTO) 0.1 K/uL (0.0-0.2); BASOPHILS % (AUTO) 0.8 % (0.0-2.0); EOSINOPHILS # (AUTO) 0.5 K/uL (0.0-0.4); EOSINOPHILS % (AUTO) 6.2 % (0.0-4.0); HEMATOCRIT 30.5 % (36-48); HEMOGLOBIN 10.2 g/dL (12.0-16.0); LYMPHOCYTES # (AUTO) 2.6 K/uL (1.0-5.5); LYMPHOCYTES % (AUTO) 30.2 % (20.5-51.5); MEAN CORPUSCULAR HEMOGLOBIN 29 pg (27-31); MEAN CORPUSCULAR HGB CONC 33 % (32-36); MEAN CORPUSCULAR VOLUME 89 fL (79.0-98.0); MONOCYTES # (AUTO) 0.7 K/uL (0.0-1.0); MONOCYTES % (AUTO) 8.1 % (1.7-9.3); NEUTROPHILS # (AUTO) 4.8 K/uL (1.8-7.7); NEUTROPHILS % (AUTO) 54.7 % (40.0-70.0); RED BLOOD CELL COUNT(AUTO) 3.45 MIL/uL (4.2-6.2); WHITE BLOOD COUNT (AUTO) 8.7 K/uL (4.8-10.8)
[2023-09-13 06:19] LABS: ANION GAP 8 (5-15); CALCIUM 9.7 mg/dL (8.4-11.0); CARBON DIOXIDE 26 mmol/L (23-29); CHLORIDE 99 mmol/L (98-107); CREATININE 0.55 mg/dL (0.55-1.30); GLUCOSE 92 mg/dL (74-106); SODIUM SERUM 133 mmol/L (136-145); UREA NITROGEN, BLOOD 6 mg/dL (8-21)
[2023-09-13 07:13] LABS: PLATELET COUNT (AUTO) 678 K/uL (130-430)
[2023-09-13 10:27] LABS: INR 1.1 (0.8-1.2); PROTHROMBIN TIME 11.6 SECS (9.5-12.5)
[2023-09-14] VITALS (8 sets, daily range): BP systolic 140–161; PULSE 60–82; RESP 16–22; TEMP 97–99.3; O2SAT 96–99
[2023-09-14 05:33] LABS: BASOPHILS # (AUTO) 0.1 K/uL (0.0-0.2); BASOPHILS % (AUTO) 0.6 % (0.0-2.0); EOSINOPHILS # (AUTO) 0.5 K/uL (0.0-0.4); EOSINOPHILS % (AUTO) 4.4 % (0.0-4.0); HEMATOCRIT 27.6 % (36-48); HEMOGLOBIN 9.1 g/dL (12.0-16.0); LYMPHOCYTES # (AUTO) 2.5 K/uL (1.0-5.5); MEAN CORPUSCULAR HEMOGLOBIN 29 pg (27-31); MEAN CORPUSCULAR HGB CONC 33 % (32-36); MEAN CORPUSCULAR VOLUME 89 fL (79.0-98.0); MONOCYTES # (AUTO) 0.7 K/uL (0.0-1.0); PLATELET COUNT (AUTO) 668 K/uL (130-430); RED BLOOD CELL COUNT(AUTO) 3.12 MIL/uL (4.2-6.2); RED CELL DISTRIBUTION WIDTH 14.5 % (9.0-15.0); WHITE BLOOD COUNT (AUTO) 11.8 K/uL (4.8-10.8)
[2023-09-14 05:54] LABS: ANION GAP 6 (5-15); CARBON DIOXIDE 24 mmol/L (23-29); CHLORIDE 102 mmol/L (98-107); CREATININE 0.52 mg/dL (0.55-1.30); GLUCOSE 110 mg/dL (74-106); POTASSIUM 3.8 mmol/L (3.5-5.1); SODIUM SERUM 132 mmol/L (136-145); UREA NITROGEN, BLOOD 7 mg/dL (8-21)
[2023-09-15] VITALS (7 sets, daily range): BP systolic 137–157; PULSE 53–77; RESP 16–17; TEMP 96.5–97.8; O2SAT 95–99
[2023-09-15 06:17] LABS: ANION GAP 8 (5-15); CARBON DIOXIDE 26 mmol/L (23-29); CHLORIDE 103 mmol/L (98-107); CREATININE 0.43 mg/dL (0.55-1.30); GLUCOSE 113 mg/dL (74-106); POTASSIUM 3.1 mmol/L (3.5-5.1); SODIUM SERUM 137 mmol/L (136-145); UREA NITROGEN, BLOOD 3 mg/dL (8-21)
[2023-09-15 06:58] LABS: BASOPHILS # (AUTO) 0.1 K/uL (0.0-0.2); BASOPHILS % (AUTO) 0.7 % (0.0-2.0); EOSINOPHILS # (AUTO) 0.3 K/uL (0.0-0.4); EOSINOPHILS % (AUTO) 3.2 % (0.0-4.0); HEMATOCRIT 28.1 % (36-48); HEMOGLOBIN 9.2 g/dL (12.0-16.0); LYMPHOCYTES # (AUTO) 2.2 K/uL (1.0-5.5); LYMPHOCYTES % (AUTO) 24.7 % (20.5-51.5); MEAN CORPUSCULAR HEMOGLOBIN 29 pg (27-31); MEAN CORPUSCULAR HGB CONC 33 % (32-36); MEAN CORPUSCULAR VOLUME 89 fL (79.0-98.0); MONOCYTES # (AUTO) 0.7 K/uL (0.0-1.0); MONOCYTES % (AUTO) 8.2 % (1.7-9.3); NEUTROPHILS # (AUTO) 5.7 K/uL (1.8-7.7); NEUTROPHILS % (AUTO) 63.2 % (40.0-70.0); PLATELET COUNT (AUTO) 686 K/uL (130-430); RED BLOOD CELL COUNT(AUTO) 3.16 MIL/uL (4.2-6.2); RED CELL DISTRIBUTION WIDTH 14.9 % (9.0-15.0); WHITE BLOOD COUNT (AUTO) 9.1 K/uL (4.8-10.8)
[2023-09-15] MEDS: POTASSIUM CHLORIDE 20 MEQ TABLET.ER PO PRN (11:49)
== END 2023-09-15 19:56 | DRG 592 ==
LOC: SED 13:27 → STU 16:51
PROVIDERS: ADMIT General Practice; ATTEND General Practice
DX: L89.154 Pressure ulcer of sacral region, stage 4 (principal); I21.A1 Myocardial infarction type 2; N39.0 Urinary tract infection, site not specified; E87.1 Hypo-osmolality and hyponatremia; E44.0 Moderate protein-calorie malnutrition; J96.11 Chronic respiratory failure with hypoxia; I31.39 Other pericardial effusion (noninflammatory); L89.114 Pressure ulcer of right upper back, stage 4; R62.7 Adult failure to thrive; K21.9 Gastro-esophageal reflux disease without esophagitis; I27.20 Pulmonary hypertension, unspecified; D63.8 Anemia in other chronic diseases classified elsewhere; I48.0 Paroxysmal atrial fibrillation; Z20.822 Contact with and (suspected) exposure to COVID-19; E03.9 Hypothyroidism, unspecified; G30.9 Alzheimer's disease, unspecified; F02.80 Dementia in other diseases classified elsewhere, unspecified severity, without behavioral disturbance, psychotic disturbance, mood disturbance, and anxiety; Z88.0 Allergy status to penicillin; Z88.2 Allergy status to sulfonamides; Z88.8 Allergy status to other drugs, medicaments and biological substances; Z79.899 Other long term (current) drug therapy; Z74.01 Bed confinement status; Z68.21 Body mass index [BMI] 21.0-21.9, adult
CPT/HCPCS: 36415; 71045; 80048; 80076; 81000; 81001; 81015; 83037; 83605; 83735; 84443; 84484; 85025; 85610; 85730; 87040; 87086; 93005; 94760; 96365; 97110-GP; 97530-GP; 99291; G0378; J0696; J1644; J2060; J2270; J3490; J7060